=== PATIENT | male | born 1955 | race Caucasian/White ===

== ENCOUNTER 2016-06-12 16:14 | Emergency (ER) | payer OTHER ==
[~2016-06-12] VITALS: Ht 182.9 cm; Wt 131.5 kg
[~2016-06-12 16:14] MED LIST: AMLODIPINE BESY10 M1 PO; ASPIRIN EC81 M1 PO; LANTUS SOL100 UNIT/1 SQ; LISINOPRIL40 M1 PO; METFORMIN HCL1000 M1 PO; OXYCODONE-ACET1 EAC1 PO; PRAVASTATIN SOD40 M2 PO; VITAMIN D250000 UNIT PO
--- NOTE | 2016-06-12 17:20 | ED SKIN/ALLERGY COMPLAINT ---
History of Present Illness General Chief Complaint: Allergy Symptoms Stated Complaint: HIVES ALL OVER Source: patient, family, old records Exam Limitations: no limitations Allergies Coded Allergies: REBECCA Inhibitors (Severe, RASH 06/12/16) Reconcile Medications Amlodipine Besylate 10 MG TABLET 10 MG PO DAILY HIGH BLOOD PRESSURE (Reported ) Aspirin (Ecotrin*) 81 MG TABLET.DR 81 MG PO DAILY HEART HEALTH (Reported) Epinephrine (Epipen 2-Torito) 0.3 MG/0.3 ML AUTO.INJCT 0.3 MG SC AD PRN ALLERGIC REACTION (Reported) Ergocalciferol (Vitamin D2) (Vitamin D2) 50,000 UNIT CAPSULE 50,000 UNITS PO Thursday VITAMIN SUPPORT (Reported) Insulin Glargine,Hum.rec.anlog (Lantus Solostar) 100 UNIT/ML (3 ML) INSULN.PEN 50 UNITS SQ BID DIABETES (Reported) Lisinopril (Unknown Strength) TABLET (Unknown Dose) UNKNOWN (Reported) Metformin HCl 1,000 MG TABLET 1,000 MG PO BID DIABETES (Reported) Oxycodone HCl/Acetaminophen (Oxycodone-Acetaminophen 10-325) 10 MG-325 MG TABLET 1 TAB PO Q6-PRN PRN PAIN SCALE 4-6 (MODERATE) (Reported) Pravastatin Sodium 40 MG TABLET 40 MG PO DAILY HIGH CHOLESTROL (Reported) Triage Note: PT STATES HE HAS HIVES ALL OVER THAT STARTED ABOUT 1 HOUR AGO. PT STATES HE ATE CLAM CHOWDER AND SOME CLAMS. PT STATES THIS IS THE 5TH TIME THIS HAS HAPPEND TO HIM. Triage Nurses Notes Reviewed? yes HPI: Patient is a 60 year old male presents complaining of urticaria diffusely, lip swelling and left sided tongue swelling. Symptoms onset approximately 1 hour prior to arrival. Patient has had 5 similar reactions in the past, has required hospitalization previously. Previously it was thought that the reaction may be due to his lisinopril, patient was taken off his lisinopril one month ago. Patient was eating clam chowder this afternoon but has not had a reaction previously to eating clams. While in triage patient began complaining of lip swelling and left side of his tongue swelling. Patient denies chest pain, dyspnea, nausea, vomiting, lightheadedness. (WOODY VELA,HOLLY) Vital Signs & Intake/Output Vital Signs & Intake/Output Vital Signs Date Time Temp Pulse Resp B/P Pulse O2 O2 Flow FiO2 Ox Delivery Rate 06/13 0005 98.7 90 18 150/84 99 Room Air 06/12 2113 98.9 98 20 148/82 98 Room Air 06/12 1738 98.7 100 20 152/86 96 Room Air ED Intake and Output 06/13 0000 06/12 1200 Intake Total 100 Output Total Balance 100 Intake, IV 100 Patient 290 lb Weight Past History Travel History Traveled to [place] past 21 day No Medical History Any Pertinent Medical History? 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 No (HOLLY GARCIA) Review of Systems Review of Systems Constitutional: Denies: chills, fever. EENTM: Denies: throat swelling. Respiratory: Denies: cough, short of breath. Cardiovascular: Denies: chest pain, syncope. GI: Denies: abdominal pain, nausea, vomiting. Musculoskeletal: Reports: no symptoms. Skin: Reports: see HPI. Neurological/Psychological: Reports: no symptoms. Hematologic/Endocrine: Reports: other (type 2 diabetes). Immunologic/Allergic: Reports: see HPI. (HOLLY GARCIA) Physical Exam Physical Exam General Appearance: alert, awake Head: atraumatic, mild lip angioedema Eyes: Bilateral: normal appearance, PERRL, EOMI. Ears, Nose, Throat: normal pharynx, mild left anterior tongue edema. No uvula swelling, no pharyngeal edema Neck: normal inspection, supple, full range of motion Respiratory: normal breath sounds, chest non-tender, no respiratory distress, lungs clear Cardiovascular: regular rate/rhythm Gastrointestinal: soft, non-tender Back: normal inspection, normal range of motion Extremities: normal inspection, normal capillary refill, normal range of motion, no edema Skin: diffuse urticarial rash (HOLLY GARCIA) Progress Differential Diagnosis: allergic reaction, anaphylaxis, angioedema, hyperglycemia, diabetic emergency Hand-Off Endorsed To: GANGA ROSEN MD Endorsed Time: 2038 Pending: other (improvement of blood sugar) (HOLLY GARCIA) Plan of Care: Orders Procedure Date/time Status SERUM OSMOLALITY 06/12 180 Complete COMPREHENSIVE METABOLIC PANEL 06/12 180 Complete CBC WITHOUT DIFFERENTIAL 06/12 180 Complete ACETONE 06/12 180 Complete FingerStick- Glucose 06/12 1729 Active Laboratory Tests 06/12/16 1830: Anion Gap 16, Estimated GFR > 60, BUN/Creatinine Ratio 18.9, Glucose 485 H, Serum Osmolality 309 H, Calcium 9.1, Total Bilirubin 1.1, AST 171 H, ALT 127 H, Alkaline Phosphatase 127 H, Total Protein 6.5, Albumin 3.6, Globulin 2.9, Albumin/Globulin Ratio 1.2, CBC w Diff NO MAN DIFF REQ, RBC 5.08, MCV 78.6 L, MCH 26.4 L, RDW 13.4, MPV 9.0, Gran % 70.2, Lymphocytes % 19.7 L, Monocytes % 7.7, Eosinophils % 1.8, Basophils % 0.6, Absolute Granulocytes 3.7, Absolute Lymphocytes 1.0 L, Absolute Monocytes 0.4, Absolute Eosinophils 0.1, Absolute Basophils 0, PUBS MCHC 33.6, Acetone Level NEGATIVE 1728: No change increasing tongue edema. No dyspnea, chest pain, vomiting, lightheadedness. 1734: Discussed with and seen by Dr. Gonzalez, patient reports tongue swelling sensation improving. 1829: Patient reports tongue swelling and hives have resolved. Discussed elevated blood sugar with patient. Patient receiving IV fluids. 2034: No signs of anaphylaxis. Signed out to Dr. Rosen, pending improvement of blood sugar (HOLLY GARCIA) Comments: Feels better, no further itching. FBS still moderately elevated. Patient does not routinely check BS without polyuria, polydipsia, polyphagia. Reports losing 5 pounds recently and has been eating well. Declines further IVF and insulin. (GANGA ROSEN MD) Departure Departure Condition: Stable Referrals: UNKNOWN Departure Forms: Customer Survey General Discharge Information (HOLLY GARCIA) PA/WOOD BARREL RECONDITIONER Co-Sign Statement Statement: ED Attending supervision documentation- [X] I saw and evaluated the patient. I have also reviewed all the pertinent lab results and diagnostic results. I agree with the findings and the plan of care as documented in the PA's/WOOD BARREL RECONDITIONER's documentation. [] I have reviewed the ED Record and agree with the PA's/WOOD BARREL RECONDITIONER's documentation. [] Additions or exceptions (if any) to the PAs/WOOD BARREL RECONDITIONER's note and plan are summarized below: [] (BRONSON JUARES,RANDOLPH Estrella) Departure Time of Disposition: 2356 Disposition: HOME OR SELF CARE Clinical Impression Primary Impression: Allergic reaction to food Qualifiers: Encounter type: initial encounter Qualified Code: T78.1XXA - Other adverse food reactions, not elsewhere classified, initial encounter Secondary Impressions: Hyperglycemia without ketosis Additional Instructions: Take benadryl 1-2 tabs every 6 hours as needed for itchy rash. Avoid clam chowder. PA/WOOD BARREL RECONDITIONER Co-Sign Statement Statement: ED Attending supervision documentation- x I saw and evaluated the patient. I have also reviewed all the pertinent lab results and diagnostic results. I agree with the findings and the plan of care as documented in the PA's/WOOD BARREL RECONDITIONER's documentation. [] I have reviewed the ED Record and agree with the PA's/WOOD BARREL RECONDITIONER's documentation. [] Additions or exceptions (if any) to the PAs/WOOD BARREL RECONDITIONER's note and plan are summarized below: [] (SILAS JUARES,GANGA)
[2016-06-12 18:39] LABS: ABSOLUTE BASOPHIL COUNT 0 /CUMM (0.0-0.2); ABSOLUTE EOSINOPHIL COUNT 0.1 /CUMM (0.0-0.7); ABSOLUTE GRANULOCYTE CT 3.7 /CUMM (1.4-6.5); ABSOLUTE MONOCYTE COUNT 0.4 /CUMM (0.10-0.60); BASOPHIL % 0.6 % (0.0-2.0); EOSINOPHIL % 1.8 % (0-5); GRANULOCYTE % 70.2 % (42.2-75.2); HEMATOCRIT 39.9 % (42-52); MEAN CORPUSCULAR HGB 26.4 PG (27.0-31.0); MEAN CORPUSCULAR HGB CONC 33.6 G/DL (33.0-37.0); MEAN CORPUSCULAR VOLUME 78.6 FL (80.0-94.0); PLATELET COUNT 187 /CUMM (130-400); RBC DISTRIBUTION WIDTH 13.4 % (11.5-14.5); RED BLOOD CELL CT 5.08 /CUMM (4.70-6.10); WHITE BLOOD CELL COUNT 5.3 /CUMM (4.8-10.8)
[2016-06-12] MEDS ORDERED: EPIPEN 2-P0.3 MG/0.3 SC (18:56)
[2016-06-12] MEDS ORDERED: LISINOPRIL40 M1 (18:56)
[2016-06-13 00:05] VITALS: BP 150/84
== END 2016-06-13 00:06 ==
LOC: ERH 16:14
PROVIDERS: Physician Assistant
DX: T78.1XXA Other adverse food reactions, not elsewhere classified, initial encounter (principal); L50.9 Urticaria, unspecified
CPT/HCPCS: 96361; 96365; 96372; 96375; J1200; J1815; J2930

== ENCOUNTER 2016-07-08 17:48 | Emergency (ER) | payer OTHER ==
[~2016-07-08 17:48] MED LIST changes: +EPIPEN 2-P0.3 MG/0.3 SC; +LISINOPRIL40 M1
--- NOTE | 2016-07-08 18:04 | ED SKIN/ALLERGY COMPLAINT ---
History of Present Illness General Chief Complaint: Allergy Symptoms Stated Complaint: ALLERGIC REACTION Source: patient Exam Limitations: no limitations Vital Signs & Intake/Output Vital Signs & Intake/Output Vital Signs Date Time Temp Pulse Resp B/P Pulse O2 O2 Flow FiO2 Ox Delivery Rate 07/08 2354 97.1 108 18 141/79 97 Room Air 07/08 2230 98.1 90 18 143/82 98 Room Air 07/08 2057 97.0 102 16 135/81 96 Room Air 07/08 1815 Room Air 07/08 1804 100 20 109/77 97 Room Air 07/08 1754 97.0 120 18 100/69 95 Room Air Allergies Coded Allergies: REBECCA Inhibitors (Severe, RASH 06/12/16) Reconcile Medications Amlodipine Besylate 10 MG TABLET 10 MG PO DAILY HIGH BLOOD PRESSURE (Reported ) Aspirin (Ecotrin*) 81 MG TABLET.DR 81 MG PO DAILY HEART HEALTH (Reported) Epinephrine (Epipen 2-Torito) 0.3 MG/0.3 ML AUTO.INJCT 0.3 MG SC AD PRN ALLERGIC REACTION (Reported) Ergocalciferol (Vitamin D2) (Vitamin D2) 50,000 UNIT CAPSULE 50,000 UNITS PO Thursday VITAMIN SUPPORT (Reported) Insulin Glargine,Hum.rec.anlog (Basaglar Kwikpen U-100) 100 UNIT/ML (3 ML) INSULN.PEN 50 UNITS SC BID DM (Reported) Metformin HCl 1,000 MG TABLET 1,000 MG PO BID DIABETES (Reported) Oxycodone HCl/Acetaminophen (Oxycodone-Acetaminophen 10-325) 10 MG-325 MG TABLET 1 TAB PO Q6-PRN PRN PAIN SCALE 4-6 (MODERATE) (Reported) Pravastatin Sodium 40 MG TABLET 40 MG PO DAILY HIGH CHOLESTROL (Reported) Prednisone (Deltasone) 20 MG TABLET 1 TAB PO BID RASH Triage Nurses Notes Reviewed? yes Onset: Abrupt Duration: hour(s): (1), constant, continues in ED Timing: single episode today HPI: 61-year-old male comes into emergency room for evaluation of allergic reaction after eating seafood tonight. Patient reports that this is happened to him on 3 other separate occasions and he carries an EpiPen normally but did not use it tonight and does not have it with him. Patient has a history of tongue swelling in the past. Patient reports diffuse rash as well as some tongue swelling and lip swelling. Denies any syncope. Denies any pain currently. Denies any other associated symptoms. (JEB LAKE) Past History Travel History Traveled to [place] past 21 day No Medical History Any Pertinent Medical History? 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 No (JEB LAKE) Review of Systems Review of Systems Constitutional: Reports: no symptoms. EENTM: Reports: see HPI. Respiratory: Reports: no symptoms. Cardiovascular: Reports: no symptoms. GI: Reports: no symptoms. Genitourinary: Reports: no symptoms. Musculoskeletal: Reports: no symptoms. Skin: Reports: see HPI. Neurological/Psychological: Reports: no symptoms. Hematologic/Endocrine: Reports: no symptoms. Immunologic/Allergic: Reports: no symptoms. All Other Systems: Reviewed and Negative (JEB LAKE) Physical Exam Physical Exam General Appearance: well developed/nourished, mild distress Head: atraumatic Eyes: Bilateral: normal appearance. Ears, Nose, Throat: normal ENT inspection, hearing grossly normal, angioedema, lip swelling, no stridor, Neck: normal inspection Respiratory: no respiratory distress Cardiovascular: regular rate/rhythm Back: normal inspection Extremities: normal inspection, normal range of motion, no edema Neurologic/Psych: awake, alert, oriented x 3, normal mood/affect Skin: rash Skin Problem Location: generalized Skin Problem Character: urticarial Lymphatic: no anterior cervical marylou (JEB LAKE) Progress Differential Diagnosis: abscess/cellulitis, allergic reaction, anaphylaxis, angioedema, asthma, contact dermatitis, drug reaction Plan of Care: Orders Procedure Date/time Status Telemetry/Cardiology Nurse Practitioner 07/08 1801 Active EKG 07/08 1801 Active Current Medications Sig/Lauri Start time Last Medication Dose Stop Time Status Admin Diphenhydramine HCl 50 MG ONCE ONE 07/08 1814 CAN (Benadryl) 07/08 1815 Laboratory Tests 07/08/16 1803: Sodium Cancelled, Potassium Cancelled, Chloride Cancelled, Carbon Dioxide Cancelled, Anion Gap Cancelled, BUN Cancelled, Creatinine Cancelled, BUN/ Creatinine Ratio Cancelled, Glucose Cancelled, Calcium Cancelled, CBC w Diff Cancelled, WBC Cancelled, RBC Cancelled, Hgb Cancelled, Hct Cancelled, MCV Cancelled, MCH Cancelled, RDW Cancelled, Plt Count Cancelled, MPV Cancelled, PUBS MCHC Cancelled Initial ED EKG: normal intervals, normal p-waves, normal QRS complex, normal sinus rhythm, rate (98) Comments: 07/08/2016 11:50:08 PM Patient has been observed here in the emergency room for 6 hours. Patient's symptoms have completely resolved. No evidence of angioedema upon reevaluation. No evidence of any type of urinary care area. Symptoms resolved after about 15 -20 minutes of being medicated here in the emergency room. Patient has been observed and continues to do well. At this time patient will be discharged home. Patient has EpiPen at home. Patient placed on prednisone. Case discussed with Dr. Quiroga. Patient understands and agrees with plan of care. (JEB LAKE) Departure Departure Disposition: HOME OR SELF CARE Condition: Stable Clinical Impression Primary Impression: Anaphylaxis Referrals: MANUEL JUARES,BANG Baxter (PCP/Family) Additional Instructions: Take prednisone as prescribed. If you have another recurrent reaction of tongue swelling lip swelling and hives seizure EpiPen at home. Follow close up with your primary care doctor. Return if any other concerns. Please go over all results of today's visit with your primary care doctor. Contact your primary care doctor to let them know you were here in the emergency room. There may be nonspecific findings which may not be related to your visit today here in the emergency room but may require further evaluation and chronic monitoring by your primary care doctor. If you had a laceration today the chance of foreign body always remains. You should follow-up with your primary care doctor for recheck in 3-5 days for a wound check. If you had an x-ray done there is a chance that a fracture could have been missed on initial read and you should follow-up with your primary care doctor for repeat x-rays if symptoms persist. If your blood pressure was elevated here in the emergency room please have rechecked by her primary care doctor within the next 48 hours by your primary care doctor. If you were prescribed a narcotic here in the emergency room or any type of controlled substances you're not allowed to drive while taking this medication or operate any type of heavy machinery. Narcotics can make you feel lightheaded dizziness nausea and can cause constipation. You may need to mushroom picker a stool softener. Thank you for choosing [facility] emergency room. Please return to the emergency room immediately if you have any other concerns worsening of symptoms. Departure Forms: Customer Survey General Discharge Information Prescriptions: Current Visit Scripts Prednisone (Deltasone) 1 TAB PO BID #10 MG (JEB LAKE) PA/DEPUTY SHERIFF GENERALIST Co-Sign Statement Statement: ED Attending supervision documentation- [X] I saw and evaluated the patient. I have also reviewed all the pertinent lab results and diagnostic results. I agree with the findings and the plan of care as documented in the PA's/DEPUTY SHERIFF GENERALIST's documentation. [X] I have reviewed the ED Record and agree with the PA's/DEPUTY SHERIFF GENERALIST's documentation. [] Additions or exceptions (if any) to the PAs/DEPUTY SHERIFF GENERALIST's note and plan are summarized below: [] (FLORES JUARES,CHEYENNE Ambriz) Critical Care Note Critical Care Note Critical Care Time: 30-74 min (40 minutes) (JEB LAKE)
[2016-07-08] MEDS ORDERED: BASAGLAR K100 UNIT/1 SC (18:18)
[2016-07-08] MEDS ORDERED: DELTASONE20 MG PO (23:38)
[2016-07-08 23:54] VITALS: BP 141/79
== END 2016-07-09 ==
LOC: ERH 17:48
DX: T78.03XA Anaphylactic reaction due to other fish, initial encounter (principal)
CPT/HCPCS: 93005; 93010; 96372; 96374; 96375; J0171; J1200; J2930

== ENCOUNTER 2016-08-16 07:36 | Emergency (ER) | payer OTHER ==
[~2016-08-16] VITALS: Ht 182.9 cm; Wt 131.5 kg
[~2016-08-16 07:36] MED LIST changes: +BASAGLAR K100 UNIT/1 SC; +DELTASONE20 MG PO
--- NOTE | 2016-08-16 08:08 | ED SKIN/ALLERGY COMPLAINT ---
History of Present Illness General Chief Complaint: General Adult Stated Complaint: HIVES, SWOLLEN UPPER LIP, USED EPI PEN X 1 HR AGO Source: patient Exam Limitations: no limitations Vital Signs & Intake/Output Vital Signs & Intake/Output Vital Signs Date Time Temp Pulse Resp B/P Pulse O2 O2 Flow FiO2 Ox Delivery Rate 08/16 0742 96.6 105 16 146/83 97 Room Air Allergies Coded Allergies: REBECCA Inhibitors (Severe, RASH 06/12/16) Reconcile Medications Amlodipine Besylate 10 MG TABLET 10 MG PO DAILY HIGH BLOOD PRESSURE (Reported ) Aspirin (Ecotrin*) 81 MG TABLET.DR 81 MG PO DAILY HEART HEALTH (Reported) Epinephrine (Epipen 2-Torito) 0.3 MG/0.3 ML AUTO.INJCT 0.3 MG SC AD PRN ALLERGIC REACTION (Reported) Ergocalciferol (Vitamin D2) (Vitamin D2) 50,000 UNIT CAPSULE 50,000 UNITS PO Thursday VITAMIN SUPPORT (Reported) Insulin Glargine,Hum.rec.anlog (Basaglar Kwikpen U-100) 100 UNIT/ML (3 ML) INSULN.PEN 50 UNITS SC BID DM (Reported) Metformin HCl 1,000 MG TABLET 1,000 MG PO BID DIABETES (Reported) Oxycodone HCl/Acetaminophen (Oxycodone-Acetaminophen 10-325) 10 MG-325 MG TABLET 1 TAB PO Q6-PRN PRN PAIN SCALE 4-6 (MODERATE) (Reported) Pravastatin Sodium 40 MG TABLET 40 MG PO DAILY HIGH CHOLESTROL (Reported) Triage Note: PT STATES HE HAD AN ALLERGIC REACTION TO SOMETHING THIS AM AND STATES HE TOOK HIS EPI PEN ABOUT 1 HOUR AGO. Triage Nurses Notes Reviewed? yes HPI: Patient presents for evaluation of a sudden onset of an allergic reaction occurred about 2 hours ago. Patient states he was at work and suddenly began having hives of his extremities with upper lip swelling. Is not sure if his tongue became somewhat swollen and he may have had even some right hand swelling. He took his EpiPen and is beginning to feel better. His allergic reaction is characterized as moderate to severe constant since onset, continues here in the emergency department but again is improving. He has had multiple prior episodes of this nature. He was taking lisinopril a few months ago and this has been discontinued. He potentially has a fish allergy and he has had no fish for the past few months either. He did not have any breakfast this morning and his last food was about 3 AM and consisted of Charlene soda bread. He denies chest pain dyspnea wheezing or abdominal pain. Past History Travel History Traveled to [place] past 21 day No Medical History Any Pertinent Medical History? 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 No Review of Systems Review of Systems Constitutional: Reports: no symptoms. EENTM: Reports: no symptoms. Respiratory: Reports: no symptoms. Cardiovascular: Reports: no symptoms. GI: Reports: no symptoms. Genitourinary: Reports: no symptoms. Musculoskeletal: Reports: no symptoms. Skin: Reports: no symptoms. Neurological/Psychological: Reports: no symptoms. Hematologic/Endocrine: Reports: no symptoms. Immunologic/Allergic: Reports: see HPI. All Other Systems: Reviewed and Negative Physical Exam Physical Exam General Appearance: SEE BELOW Comments: Gen.: Well-nourished, well-developed, no acute respiratory distress. Head: Normocephalic, atraumatic. Eyes: Normal inspection bilaterally, no conjunctival injection Ears: Normal inspection bilaterally Nose: Normal inspection Throat/mouth : Moist mucosa, mild uvula edema, no apparent lip or tongue swelling Neck: Supple, full range of motion, no goiter, no stridor Heart: Regular rate and rhythm, no murmurs rubs or gallops Lungs: Clear to auscultation bilaterally with normal air entry Chest: Nontender Back: Normal range of motion Abdomen: Soft, nontender, nondistended, normal bowel sounds Extremities: Normal range of motion grossly, equal radial pulses, no cyanosis clubbing or edema, patchy urticaria present on left forearm Neurologic: Cranial nerves grossly intact, speech is clear Skin: warm and dry Psychiatric: Calm, cooperative, no apparent delusions or hallucinations Progress Differential Diagnosis: allergic reaction, anaphylaxis, urticaria Plan of Care: SEE D/C INSTRUCTIONS Comments: 08/16/2016 10:05:41 AM patient is feeling better and his rash has resolved. Departure Departure Disposition: HOME OR SELF CARE Condition: Stable Clinical Impression Primary Impression: Allergic urticaria Referrals: MANUEL JUARES,BANG Baxter (PCP/Family) Additional Instructions: Benadryl 50 mg every 6 hours for the next 2 days. Zantac as prescribed for 2 days. Follow-up with your primary care physician on Thursday for reevaluation. Return if any concerns or sudden worsening. Please keep a diary of any exposures that might shed light on to what you are having an allergy. Thank you for choosing the [facility] Emergency Department for your care. It was a pleasure to serve you today. Oscar Gonzalez M.D. [facility] Departure Forms: Customer Survey General Discharge Information
[2016-08-16 10:26] VITALS: BP 128/67
== END 2016-08-16 10:29 ==
LOC: ERH 07:36
DX: L50.0 Allergic urticaria (principal)

== ENCOUNTER 2016-10-10 09:35 | Emergency (ER) | payer OTHER ==
[~2016-10-10] VITALS: Ht 182.9 cm; Wt 131.5 kg
--- NOTE | 2016-10-10 09:53 | ED SKIN/ALLERGY COMPLAINT ---
History of Present Illness General Chief Complaint: Allergy Symptoms Stated Complaint: ALLERGIC RX Source: patient, old records Exam Limitations: no limitations Vital Signs & Intake/Output Vital Signs & Intake/Output Vital Signs Date Time Temp Pulse Resp B/P B/P Pulse O2 O2 Flow FiO2 Mean Ox Delivery Rate 10/10 1133 98.2 102 15 120/78 94 Room Air Room Air 10/10 0958 Room Air Room Air 10/10 0939 96.7 123 20 151/94 98 Room Air Allergies Coded Allergies: REBECCA Inhibitors (Severe, RASH 06/12/16) Reconcile Medications Amlodipine Besylate 10 MG TABLET 10 MG PO DAILY HIGH BLOOD PRESSURE (Reported ) Aspirin (Ecotrin*) 81 MG TABLET.DR 81 MG PO DAILY HEART HEALTH (Reported) Epinephrine (Epipen 2-Torito) 0.3 MG/0.3 ML AUTO.INJCT 0.3 MG SC AD PRN ALLERGIC REACTION (Reported) Ergocalciferol (Vitamin D2) (Vitamin D2) 50,000 UNIT CAPSULE 50,000 UNITS PO Thursday VITAMIN SUPPORT (Reported) Insulin Glargine,Hum.rec.anlog (Basaglar Kwikpen U-100) 100 UNIT/ML (3 ML) INSULN.PEN 50 UNITS SC BID DM (Reported) Metformin HCl 1,000 MG TABLET 1,000 MG PO BID DIABETES (Reported) Oxycodone HCl/Acetaminophen (Oxycodone-Acetaminophen 10-325) 10 MG-325 MG TABLET 1 TAB PO Q6-PRN PRN PAIN SCALE 4-6 (MODERATE) (Reported) Pravastatin Sodium 40 MG TABLET 40 MG PO DAILY HIGH CHOLESTROL (Reported) Triage Note: PT TO ED FOR ALLERGIC REACTION, STARTED 45 MINS AGO. UNKNOWN FROM WHAT. HAS HAPPENED TO PT IN THE PAST. PT GAVE HIMSELF AN EPI AT 0920. PT STATES HE THROAT FEELS NUMB. NO SOB OR DIFF BREATHING NOTED, RA SATS 98%. PT HAS NO PAIN. LARGE RAISED RASH TO ABD AND THIGHS. Triage Nurses Notes Reviewed? yes HPI: Patient was driving this morning when he developed an indigestion feeling substernally. The feeling lasted approximately 15-20 minutes before it resolved. A little while later patient then broke out in diffuse hives. Patient has had similar symptoms multiple times in the past. Patient has been to multiple EGDs for this. Patient is also seen an arrt technologist. Patient has been given an EpiPen. Patient used the EpiPen this morning because he states that usually after the rash his throat because swallow. It is unknown what the patient is allergic to. Patient states that the past few times prior to breaking out in a rash he has had this indigestion feeling. There are no aggravating or mitigating factors to the indigestion. The indigestion was substernal. There is no radiation. At its worst she rated as a 4 out of 10. Patient denies any difficulty breathing or swallowing. Past History Travel History Traveled to [place] past 21 day No Medical History Any Pertinent Medical History? 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 No Review of Systems Review of Systems Constitutional: Reports: no symptoms. EENTM: Reports: no symptoms. Respiratory: Reports: no symptoms. Cardiovascular: Reports: see HPI, chest pain. GI: Reports: no symptoms. Genitourinary: Reports: no symptoms. Musculoskeletal: Reports: no symptoms. Skin: Reports: see HPI, rash. Neurological/Psychological: Reports: no symptoms. Hematologic/Endocrine: Reports: no symptoms. Immunologic/Allergic: Reports: no symptoms. All Other Systems: Reviewed and Negative Physical Exam Physical Exam General Appearance: well developed/nourished, alert, awake, anxious, moderate distress Head: atraumatic, normal appearance Eyes: Bilateral: PERRL, EOMI. Ears, Nose, Throat: normal pharynx, normal ENT inspection, hearing grossly normal Neck: normal inspection, supple, full range of motion Respiratory: normal breath sounds, chest non-tender, no respiratory distress, lungs clear Cardiovascular: regular rate/rhythm, normal peripheral pulses Gastrointestinal: normal bowel sounds, soft, non-tender Back: normal inspection, normal range of motion Extremities: normal inspection, normal capillary refill, normal range of motion, no edema Neurologic/Psych: no motor/sensory deficits, awake, alert, oriented x 3, normal gait, normal mood/affect Skin: rash Skin Problem Location: generalized Skin Problem Character: urticarial Lymphatic: no anterior cervical marylou Progress Differential Diagnosis: allergic reaction, anaphylaxis, drug reaction, urticaria Plan of Care: Orders Procedure Date/time Status Telemetry/Supervisor Cellars 10/11 951 Active TROPONIN LEVEL 10/11 951 Complete COMPREHENSIVE METABOLIC PANEL 10/11 951 Complete CBC WITHOUT DIFFERENTIAL 10/11 951 Complete EKG 10/10 946 Active Laboratory Tests 10/10/16 0955: Anion Gap 14, Estimated GFR > 60, BUN/Creatinine Ratio 15.6, Glucose 390 H, Calcium 9.2, Total Bilirubin 1.6 H, AST 220 H, ALT 123 H, Alkaline Phosphatase 137 H, Troponin I < 0.01, Total Protein 7.0, Albumin 3.8, Globulin 3.2, Albumin/Globulin Ratio 1.2, CBC w Diff NO MAN DIFF REQ, RBC 5.66, MCV 78.8 L, MCH 25.9 L, RDW 13.8, MPV 9.4, Gran % 55.4, Lymphocytes % 35.1, Monocytes % 8.4, Eosinophils % 0.8, Basophils % 0.3, Absolute Granulocytes 5.6, Absolute Lymphocytes 3.6 H, Absolute Monocytes 0.8 H, Absolute Eosinophils 0.1, Absolute Basophils 0, PUBS MCHC 32.8 L Initial ED EKG: NSR, nonspecific ST T wave chg Prior EKG: changed Rhythm Strip: normal sinus rhythm Comments: Rash has resolved. No difficulty breathing or swallowing. Patient is stable for discharge. Departure Departure Disposition: HOME OR SELF CARE Condition: Stable Clinical Impression Primary Impression: Urticaria Referrals: MANUEL JUARES,BANG Baxter (PCP/Family) Additional Instructions: FOLLOW UP WITH YOU DOCTOR RETURN FOR ANY CONCERNS Departure Forms: Customer Survey General Discharge Information Prescriptions: Current Visit Scripts Prednisone 1 TAB PO DAILY #30 TAB TAKE 4 TABS FOR 3 DAYS THEN TAKE 3 TABS FOR 3 DAYS THEN TAKE 2 TABS FOR 3 DAYS THEN TAKE 1 TAB FOR 3 DAYS
[2016-10-10 10:09] LABS: ABSOLUTE BASOPHIL COUNT 0 /CUMM (0.0-0.2); ABSOLUTE EOSINOPHIL COUNT 0.1 /CUMM (0.0-0.7); ABSOLUTE GRANULOCYTE CT 5.6 /CUMM (1.4-6.5); ABSOLUTE LYMPH COUNT 3.6 /CUMM (1.2-3.4); ABSOLUTE MONOCYTE COUNT 0.8 /CUMM (0.10-0.60); BASOPHIL % 0.3 % (0.0-2.0); EOSINOPHIL % 0.8 % (0-5); GRANULOCYTE % 55.4 % (42.2-75.2); HEMATOCRIT 44.6 % (42-52); MEAN CORPUSCULAR HGB 25.9 PG (27.0-31.0); MEAN CORPUSCULAR HGB CONC 32.8 G/DL (33.0-37.0); MEAN CORPUSCULAR VOLUME 78.8 FL (80.0-94.0); MEAN PLATELET VOLUME 9.4 FL (7.4-10.4); PLATELET COUNT 205 /CUMM (130-400); RBC DISTRIBUTION WIDTH 13.8 % (11.5-14.5); RED BLOOD CELL CT 5.66 /CUMM (4.70-6.10); WHITE BLOOD CELL COUNT 10.1 /CUMM (4.8-10.8)
[2016-10-10 12:35] VITALS: BP 140/92
[2016-10-10] MEDS ORDERED: PREDNISONE10 M2 PO (12:38)
[2016-10-10] MEDS ORDERED: EPIPEN 2-P0.3 MG/0.3 SQ (12:40)
== END 2016-10-10 12:50 ==
LOC: ERH 09:35
PROVIDERS: Emergency Medicine
DX: L50.9 Urticaria, unspecified (principal)
CPT/HCPCS: 93005; 93010; 96374; 96375; J1200; J2930

== ENCOUNTER 2017-09-08 13:46 | Emergency (ER) | payer OTHER ==
[~2017-09-08] VITALS: Ht 182.9 cm; Wt 129.3 kg
[~2017-09-08 13:46] MED LIST changes: +EPIPEN 2-P0.3 MG/0.3 SQ; +PREDNISONE10 M2 PO
[2017-09-08 14:08] LABS: ABSOLUTE BASOPHIL COUNT 0 /CUMM (0.0-0.2); ABSOLUTE EOSINOPHIL COUNT 0.2 /CUMM (0.0-0.7); ABSOLUTE GRANULOCYTE CT 6.2 /CUMM (1.4-6.5); ABSOLUTE LYMPH COUNT 1.3 /CUMM (1.2-3.4); ABSOLUTE MONOCYTE COUNT 0.9 /CUMM (0.10-0.60); BASOPHIL % 0.4 % (0.0-2.0); GRANULOCYTE % 71.8 % (42.2-75.2); HEMATOCRIT 46.1 % (42-52); MEAN CORPUSCULAR HGB 26.3 PG (27.0-31.0); MEAN CORPUSCULAR VOLUME 79.6 FL (80.0-94.0); MEAN PLATELET VOLUME 9.2 FL (7.4-10.4); PLATELET COUNT 264 /CUMM (130-400); RBC DISTRIBUTION WIDTH 14.2 % (11.5-14.5); RED BLOOD CELL CT 5.79 /CUMM (4.70-6.10); WHITE BLOOD CELL COUNT 8.6 /CUMM (4.8-10.8)
--- NOTE | 2017-09-08 16:35 | ED GI/GU/ABDOMINAL COMPLAINT ---
History of Present Illness General Chief Complaint: Dizziness Stated Complaint: DIZZY/LOOSE STOOLS ABD PAIN Source: patient Exam Limitations: no limitations Vital Signs & Intake/Output Vital Signs & Intake/Output Vital Signs Date Time Temp Pulse Resp B/P B/P Pulse O2 O2 Flow FiO2 Mean Ox Delivery Rate 09/08 1647 97 Room Air 09/08 1639 97.8 93 20 108/56 98 Room Air 09/08 1357 97.7 108 18 122/67 98 Room Air Allergies Coded Allergies: REBECCA Inhibitors (Severe, RASH 06/12/16) Reconcile Medications Amlodipine Besylate 10 MG TABLET 10 MG PO DAILY HIGH BLOOD PRESSURE (Reported ) Aspirin (Ecotrin*) 81 MG TABLET.DR 81 MG PO DAILY HEART HEALTH (Reported) Dicyclomine HCl 10 MG CAPSULE 1 CAP PO TID PRN ENTERITIS Epinephrine (Epipen 2-Torito) 0.3 MG/0.3 ML AUTO.INJCT 0.3 MG SC AD PRN ALLERGIC REACTION (Reported) Epinephrine (Epipen 2-Tortio) 0.3 MG/0.3 ML AUTO.INJCT 1 PEN SQ ONE ALLERGIC REACTION Ergocalciferol (Vitamin D2) (Vitamin D2) 50,000 UNIT CAPSULE 50,000 UNITS PO Thursday VITAMIN SUPPORT (Reported) Insulin Glargine,Hum.rec.anlog (Basaglar Kwikpen U-100) 100 UNIT/ML (3 ML) INSULN.PEN 50 UNITS SC BID DM (Reported) Metformin HCl 1,000 MG TABLET 1,000 MG PO BID DIABETES (Reported) Oxycodone HCl/Acetaminophen (Oxycodone-Acetaminophen 10-325) 10 MG-325 MG TABLET 1 TAB PO Q6-PRN PRN PAIN SCALE 4-6 (MODERATE) (Reported) Pravastatin Sodium 40 MG TABLET 40 MG PO DAILY HIGH CHOLESTROL (Reported) Prednisone 10 MG TABLET 1 TAB PO DAILY ALLGIC REACTION TAKE 4 TABS FOR 3 DAYS THEN TAKE 3 TABS FOR 3 DAYS THEN TAKE 2 TABS FOR 3 DAYS THEN TAKE 1 TAB FOR 3 DAYS Triage Note: PT STATES GE GAS BEEN HAVING DIARRHEA "ALL WATER" STATES EVERYTHING IS COMING OUT. PT HAS BLACK SPOTS IN FRONT OF HIS EYES SINCE LAST NIGHT. PT C/O SOB, DENIES CHEST PAIN. PT C/O LUQ PAIN THAT HE HAS HAD FOR 6MONTHS. Triage Nurses Notes Reviewed? yes Onset: Abrupt Duration: intermittent Timing: multiple episodes today Quality/Severity: aching, mild Severity Numbers: 2 Radiation: no radiation HPI: Patient is a 62-year-old male with a past medical history of diabetes, hypertension and hyperlipidemia who presents emergency room that yesterday evening he was in his normal state of health however he ate meat loaf for dinner and subsequently during the night hours he began having loose watery diarrhea production in which she has had over 15 episodes of diarrhea today. Patient complains of mild epigastric pain Denies any recent antibiotics denies any significant NSAID use denies any alcohol use. Denies any fever chills shortness of breath nausea vomiting. Patient can tolerate by mouth prior to arrival. Patient's last colonoscopy was approximate 4 years ago noted only polyps. Patient does state that he has had dizziness symptoms since that is worse with positional movements Past History Travel History Traveled to [place] past 21 day No Medical History Any Pertinent Medical History? 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 No Review of Systems Review of Systems Constitutional: Reports: no symptoms. EENTM: Reports: no symptoms. Respiratory: Reports: no symptoms. Cardiovascular: Reports: no symptoms. GI: Reports: see HPI, abdominal pain, vomiting. Genitourinary: Reports: no symptoms. Musculoskeletal: Reports: no symptoms. Skin: Reports: no symptoms. Neurological/Psychological: Reports: no symptoms. Hematologic/Endocrine: Reports: no symptoms. Immunologic/Allergic: Reports: no symptoms. All Other Systems: Reviewed and Negative Physical Exam Physical Exam General Appearance: no apparent distress, alert, comfortable Head: atraumatic Eyes: Bilateral: normal appearance. Ears, Nose, Throat, Mouth: hearing grossly normal Neck: normal inspection Respiratory: normal breath sounds, chest non-tender, no respiratory distress Cardiovascular: tachycardia Gastrointestinal: normal bowel sounds, soft, tenderness Back: normal inspection Extremities: normal range of motion Neurologic/Psych: no motor/sensory deficits, awake, alert Skin: intact, normal color, warm/dry Core Measures ACS in differential dx? No Sepsis Present: No Sepsis Focused Exam Completed? No Progress Differential Diagnosis: AAA, AMI, appendicitis, biliary colic, bowel obstruction , colon cancer, cholecystitis, diverticulitis, epididymitis, esophageal varices, gastritis, hepatitis, hernia, hemorrhoids, ischemic bowel, inflamm bowel dis, Jyoti-Daphne tear, orchitis, pancreatitis, prostatitis, peptic ulcer, PUD/GERD, perforated viscous, pyelonephritis, SBO, testicular torsion, ureterolithiasis, urinary retention, urethritis, UTI/pyelo Plan of Care: Orders Procedure Date/time Status LACTIC ACID 09/08 1657 Complete Add-on Test (ER Only) 09/08 1600 Active Add-on Test (ER Only) 09/08 1445 Active TROPONIN LEVEL 09/08 1359 Complete LIPASE 09/08 1359 Complete LACTIC ACID 09/08 1357 Complete COMPREHENSIVE METABOLIC PANEL 09/08 1357 Complete CBC WITHOUT DIFFERENTIAL 09/08 1357 Complete EKG 09/08 1349 Active Laboratory Tests 09/08/17 1659: Lactic Acid 1.7 09/08/17 1359: Anion Gap 12, Estimated GFR > 60, BUN/Creatinine Ratio 21.7, Glucose 223 H, Lactic Acid 1.4, Calcium 8.8, Total Bilirubin 1.3, AST 15 L, ALT 41, Alkaline Phosphatase 88, Troponin I < 0.01, Total Protein 6.8, Albumin 3.6, Globulin 3.2, Albumin/Globulin Ratio 1.1, Lipase 11 L, CBC w Diff NO MAN DIFF REQ, RBC 5.79, MCV 79.6 L, MCH 26.3 L, MCHC 33.0, RDW 14.2, MPV 9.2, Gran % 71.8, Lymphocytes % 15.4 L, Monocytes % 10.4 H, Eosinophils % 2.0, Basophils % 0.4, Absolute Granulocytes 6.2, Absolute Lymphocytes 1.3, Absolute Monocytes 0.9 H, Absolute Eosinophils 0.2, Absolute Basophils 0 Patient was offered pain medication however declined, patient was normotensive Denies any symptoms of GI bleed Patient has been resting comfortably at bedside in no apparent distress patient was given IV fluids in which blood work and CT was unremarkable, patient will be treated for concerns of enteritis no concerns of C. difficile obstruction or appendicitis at this time patient was able tolerate by mouth upon discharge. Discussed all results with patient and CT scan imaging which she was strongly advised to follow-up with instructions and plan and he will comply Diagnostic Imaging: Viewed by Me: CT Scan. Radiology Impression: no acute abnormality Initial ED EKG: SINUS TACHYCARDIA 104 BPM Comments: PATIENT: MAGED MILLER PRESENT AGE: 62 PATIENT ACCOUNT NO: [id number] : 55 LOCATION: [facility] ORDERING PHYSICIAN: Lisandro VELA SERVICE DATE: 09/08/17 EXAM TYPE: CAT - CT ABD & PELVIS W IV CONTRAST EXAMINATION: CT ABDOMEN AND PELVIS WITH CONTRAST CLINICAL INFORMATION: Left lower quadrant pain. Nausea. Vomiting. Diarrhea. COMPARISON: None TECHNIQUE: Multidetector volumetric imaging was performed of the abdomen and pelvis following IV administration of 95 mL of Optiray 320 intravenous contrast. Sagittal and coronal reformatted images were obtained on the technologist's workstation. DLP: 1408.77 mGy-cm FINDINGS: LUNG BASES: The visualized lung bases are unremarkable. LIVER, GALLBLADDER, AND BILIARY TREE: There is diffuse low attenuation of liver parenchyma. This is likely from fatty change. There is no focal liver lesion. There is no intrahepatic bile duct dilatation. There are several small calcified gallstones at the neck of the gallbladder. There is no edema of the gallbladder. The extrahepatic CBD measures about 6 mm with no calcified stone present in the ducts PANCREAS: The pancreas is atrophic. There is dilatation of the pancreatic duct. Pancreatic head duct measures about 1 cm in diameter. There is no acute change of the pancreas. There is no inflammation of the pancreas. No pancreatic mass or pancreatic calcification. SPLEEN: Unremarkable. ADRENAL GLANDS: Unremarkable. KIDNEYS AND URETERS: There are multiple small hypodensities in the cortex of the kidneys bilaterally. Largest at both lower poles measuring about 1 cm. Statistically likely small renal cysts. There is no renal or ureteral calculi. There is no hydronephrosis. BLADDER: Unremarkable. GASTROINTESTINAL TRACT: The small and large bowel are unremarkable. The appendix is not identified. There is no inflammation of the mesentery. ABDOMINAL WALL: No significant hernia is appreciated. LYMPH NODES: Normal. VASCULAR: There are scattered vascular wall calcifications of aorta and iliac vessels without aneurysm. PELVIC VISCERA: Prostate measures 5.4 cm transverse. OSSEOUS STRUCTURES: There is degenerative spondylosis spine with bridging osteophytes at the lower thoracic involving anterior lateral vertebral endplates. There is mild multilevel facet joint arthrosis at the lower lumbar spine. There is mild degenerative joint disease of hips bilateral with joint space narrowing and spurring of femoral head and acetabula. IMPRESSION: 1. No acute abnormality of the abdomen or pelvis. 2. Diffuse fatty change of liver. 3. Cholelithiasis without acute change of gallbladder wall. There is no bile duct dilatation. DICTATED BY: Jonathan Villalobos MD DATE/TIME DICTATED:09/08/171758 CHIEF INFORMATION OFFICER:GRANT DATE/TIME TRANSCRIBED:09/08/17 Departure Departure Disposition: HOME OR SELF CARE Condition: Stable Clinical Impression Primary Impression: Diarrhea Secondary Impressions: Abdominal pain, Enteritis Referrals: Maryann JUARES,Harman Baxter (PCP/Family) Additional Instructions: As discussed begin the prescription of Bentyl for your symptoms, PRESCRIPTIONS waiting at [facility]. If no better in 2 days follow-up with gastroenterology Dr. Viveros, if symptoms worsen or if YOU develop a new concerning symptom return to emergency room. Begin a 24-hour clear liquid and bland diet Prescriptions waiting at [facility]. Departure Forms: Customer Survey General Discharge Information Prescriptions: Current Visit Scripts Dicyclomine HCl 1 CAP PO TID PRN ENTERITIS #9 CAP
--- NOTE | 2017-09-08 18:11 | CT SCAN REPORT ---
EXAMINATION: CT ABDOMEN AND PELVIS WITH CONTRAST CLINICAL INFORMATION: Left lower quadrant pain. Nausea. Vomiting. Diarrhea. COMPARISON: None TECHNIQUE: Multidetector volumetric imaging was performed of the abdomen and pelvis following IV administration of 95 mL of Optiray 320 intravenous contrast. Sagittal and coronal reformatted images were obtained on the technologist's workstation. DLP: 1408.77 mGy-cm FINDINGS: LUNG BASES: The visualized lung bases are unremarkable. LIVER, GALLBLADDER, AND BILIARY TREE: There is diffuse low attenuation of liver parenchyma. This is likely from fatty change. There is no focal liver lesion. There is no intrahepatic bile duct dilatation. There are several small calcified gallstones at the neck of the gallbladder. There is no edema of the gallbladder. The extrahepatic CBD measures about 6 mm with no calcified stone present in the ducts PANCREAS: The pancreas is atrophic. There is dilatation of the pancreatic duct. Pancreatic head duct measures about 1 cm in diameter. There is no acute change of the pancreas. There is no inflammation of the pancreas. No pancreatic mass or pancreatic calcification. SPLEEN: Unremarkable. ADRENAL GLANDS: Unremarkable. KIDNEYS AND URETERS: There are multiple small hypodensities in the cortex of the kidneys bilaterally. Largest at both lower poles measuring about 1 cm. Statistically likely small renal cysts. There is no renal or ureteral calculi. There is no hydronephrosis. BLADDER: Unremarkable. GASTROINTESTINAL TRACT: The small and large bowel are unremarkable. The appendix is not identified. There is no inflammation of the mesentery. ABDOMINAL WALL: No significant hernia is appreciated. LYMPH NODES: Normal. VASCULAR: There are scattered vascular wall calcifications of aorta and iliac vessels without aneurysm. PELVIC VISCERA: Prostate measures 5.4 cm transverse. OSSEOUS STRUCTURES: There is degenerative spondylosis spine with bridging osteophytes at the lower thoracic involving anterior lateral vertebral endplates. There is mild multilevel facet joint arthrosis at the lower lumbar spine. There is mild degenerative joint disease of hips bilateral with joint space narrowing and spurring of femoral head and acetabula. IMPRESSION: 1. No acute abnormality of the abdomen or pelvis. 2. Diffuse fatty change of liver. 3. Cholelithiasis without acute change of gallbladder wall. There is no bile duct dilatation.
[2017-09-08] MEDS ORDERED: DICYCLOMINE HCL10 M1 PO (18:25)
[2017-09-08 18:37] VITALS: BP 124/59
== END 2017-09-08 18:41 ==
LOC: ERH 13:46
PROVIDERS: Emergency Medicine
DX: K52.9 Noninfective gastroenteritis and colitis, unspecified (principal)
CPT/HCPCS: 74177; 93005; 93010

== ENCOUNTER 2018-01-04 01:22 | Inpatient (IN) | payer OTHER ==
[~2018-01-04] VITALS: Ht 182.9 cm; Wt 126.6 kg
[~2018-01-04 01:22] MED LIST changes: +DICYCLOMINE HCL10 M1 PO
--- NOTE | 2018-01-04 01:49 | ED ANKLE/FOOT INJURY COMPLAINT ---
History of Present Illness General Chief Complaint: General Adult Stated Complaint: LEFT BIG TOE SWELLING Source: patient, old records Exam Limitations: no limitations Vital Signs & Intake/Output Vital Signs & Intake/Output Vital Signs Date Time Temp Pulse Resp B/P B/P Pulse O2 O2 Flow FiO2 Mean Ox Delivery Rate 01/04 0131 99.1 97 18 156/96 98 Room Air Allergies Coded Allergies: REBECCA Inhibitors (Severe, RASH 06/12/16) Reconcile Medications Amlodipine Besylate 10 MG TABLET 10 MG PO DAILY HIGH BLOOD PRESSURE (Reported ) Aspirin (Ecotrin*) 81 MG TABLET.DR 81 MG PO DAILY HEART HEALTH (Reported) Dicyclomine HCl 10 MG CAPSULE 1 CAP PO TID PRN ENTERITIS Epinephrine (Epipen 2-Torito) 0.3 MG/0.3 ML AUTO.INJCT 0.3 MG SC AD PRN ALLERGIC REACTION (Reported) Epinephrine (Epipen 2-Torito) 0.3 MG/0.3 ML AUTO.INJCT 1 PEN SQ ONE ALLERGIC REACTION Ergocalciferol (Vitamin D2) (Vitamin D2) 50,000 UNIT CAPSULE 50,000 UNITS PO Thursday VITAMIN SUPPORT (Reported) Insulin Glargine,Hum.rec.anlog (Basaglar Kwikpen U-100) 100 UNIT/ML (3 ML) INSULN.PEN 50 UNITS SC BID DM (Reported) Metformin HCl 1,000 MG TABLET 1,000 MG PO BID DIABETES (Reported) Oxycodone HCl/Acetaminophen (Oxycodone-Acetaminophen 10-325) 10 MG-325 MG TABLET 1 TAB PO Q6-PRN PRN PAIN SCALE 4-6 (MODERATE) (Reported) Pravastatin Sodium 40 MG TABLET 40 MG PO DAILY HIGH CHOLESTROL (Reported) Prednisone 10 MG TABLET 1 TAB PO DAILY ALLGIC REACTION TAKE 4 TABS FOR 3 DAYS THEN TAKE 3 TABS FOR 3 DAYS THEN TAKE 2 TABS FOR 3 DAYS THEN TAKE 1 TAB FOR 3 DAYS Triage Note: PT TO ED C/O LEFT GREAT TOE REDNESS AND PAIN. HAD PMH OF IDDM "MY SUGARS HAVE NOT BEEN GOOD" "I HAVEN'T HAD A DRINK IN 15 YRS AND I HAD LIKE 20 SHOTS OF ANGEL OVER A FEW DAYS" THIS PAST WEEK. REDNESS GOES ACROSS FOOT TO BASE OF 4TH TOE AND UP FOOT TO TARSAL AREA. FIRST NOTICED PAIN IF LEFT CALF ON THURSDAY. FIRST NOTICED REDNESS ON SAT AM. Triage Nurses Notes Reviewed? yes HPI: Patient works nights and when he got home Thursday morning after working Thursday night he took off his boot and noticed that his left great toe was very swollen and red. Since then he has been having a throbbing pain that is now radiating up into his foot. There is no known injury. Positive chills but no fevers. Patient is a diabetic. The pain is throbbing in nature and he rates it at 8 out of 10. Past History Travel History Traveled to [place] past 21 day No Medical History Any Pertinent Medical History? 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 No Review of Systems Review of Systems Constitutional: Reports: see HPI, chills. EENTM: Reports: no symptoms. Respiratory: Reports: no symptoms. Cardiovascular: Reports: no symptoms. GI: Reports: no symptoms. Genitourinary: Reports: no symptoms. Musculoskeletal: Reports: see HPI, joint pain, joint swelling. Skin: Reports: no symptoms. Neurological/Psychological: Reports: no symptoms. Hematologic/Endocrine: Reports: no symptoms. Immunologic/Allergic: Reports: no symptoms. All Other Systems: Reviewed and Negative Physical Exam Physical Exam General Appearance: well developed/nourished, alert, awake, anxious, mild distress Head: atraumatic, normal appearance Eyes: Bilateral: PERRL, EOMI. Ears, Nose, Throat: normal pharynx, normal ENT inspection, hearing grossly normal Neck: normal inspection, supple Cardiovascular/Respiratory: normal breath sounds, regular rate/rhythm Gastrointestinal: SOFT, NORMAL BS Back: normal inspection Leg/Knee/Thigh Left: normal range of motion, normal inspection Leg/Knee/Thigh Right: normal range of motion, normal inspection Foot Left: ERYTHEMA, SWELLING, WARMTH TO LEFT GREAT TOE MIGRATING INTO THE LEFT SECOND TOE AND ONTO THE DORSAL ASPECT OF HIS FOOT. Neuro/Vascular: normal motor function, normal sensation Psychiatric: awake, alert, oriented x 3 Skin: intact, normal color, warm/dry Progress Differential Diagnosis: cellulitis, fracture Plan of Care: Orders Procedure Date/time Status Heart Healthy Diet 01/04 B Active LACTIC ACID 01/05 448 Active ED Holding Orders 01/04 257 Active Admit to inpatient 01/04 257 Active Vital Signs 01/04 257 Active Code Status 01/04 257 Active BLOOD CULTURE 01/05 148 Active LACTIC ACID 01/05 148 Complete COMPREHENSIVE METABOLIC PANEL 01/05 148 Complete CBC WITHOUT DIFFERENTIAL 01/05 148 Complete EKG 01/05 148 Active Current Medications Sig/Lauri Start time Last Medication Dose Stop Time Status Admin Sodium Chloride 3,810.18 ML ONCE ONE 01/04 200 UNir 01/04 (Normal Saline 0.9%) 01/04 201 0226 Laboratory Tests 01/04/18 0155: Anion Gap 9, Estimated GFR > 60, BUN/Creatinine Ratio 17.8, Glucose 172 H, Lactic Acid 1.4, Calcium 8.8, Total Bilirubin 0.6, AST 16 L, ALT 42, Alkaline Phosphatase 123, Total Protein 6.6, Albumin 3.3 L, Globulin 3.3, Albumin/ Globulin Ratio 1.0 L, CBC w Diff NO MAN DIFF REQ, RBC 4.61 L, MCV 78.9 L, MCH 26.8 L, MCHC 33.9, RDW 13.3, MPV 8.0, Gran % 71.5, Lymphocytes % 17.2 L, Monocytes % 9.5 H, Eosinophils % 1.4, Basophils % 0.4, Absolute Granulocytes 6.6 H, Absolute Lymphocytes 1.6, Absolute Monocytes 0.9 H, Absolute Eosinophils 0.1, Absolute Basophils 0 Microbiology 01/04 203 BLOOD: Blood Culture - RECD 01/04 155 BLOOD: Blood Culture - RECD Diagnostic Imaging: Viewed by Me: Radiology Read. Discussed w/RAD: Radiology Read. Radiology Impression: PATIENT: MAGED MILLER PRESENT AGE: 62 PATIENT ACCOUNT NO: [id number] : 55 LOCATION: [facility] ORDERING PHYSICIAN: Rodolfo Quiroga MD SERVICE DATE: 01/04/18 EXAM TYPE: RAD - XRY-FOOT COMPLETE, LEFT EXAMINATION: XR FOOT, LEFT CLINICAL INFORMATION: Diabetic foot cellulitis COMPARISON: None TECHNIQUE: AP, lateral, and oblique views of the left foot. FINDINGS: There is a fracture at the distal aspect of the second digit proximal phalanx with mild impaction. This is of uncertain chronicity, as there may be minimal periosteal reaction at the site of fracture. Joint spaces are maintained. No additional fractures. Alignment otherwise maintained. Diffuse vascular calcifications. Small heel spurs. No osseous erosions. IMPRESSION: Fracture at the distal aspect of the second digit proximal phalanx which may be subacute as minimal periosteal reaction is noted. No erosive osseous changes to suggest osteomyelitis. DICTATED BY: Bhargav Lima MD DATE/TIME DICTATED:01/04/18223 YEAST SUPERVISOR:GRANT DATE/TIME TRANSCRIBED:01/04/18223 CONFIDENTIAL, DO NOT COPY WITHOUT APPROPRIATE AUTHORIZATION. <Electronically signed in Other Vendor System> SIGNED BY: Bhargav Lima MD 01/04/18228 CXR Impression: PATIENT: MAGED MILLER PRESENT AGE: 62 PATIENT ACCOUNT NO: [id number] : 55 LOCATION: [facility] ORDERING PHYSICIAN: Rodolfo Quiroga MD SERVICE DATE: 01/04/18 EXAM TYPE: RAD - XRY-CHEST XRAY, TWO VIEWS EXAMINATION: XR CHEST CLINICAL INFORMATION: Fever COMPARISON: TECHNIQUE: 2 views of the chest were obtained. FINDINGS: The lungs are well expanded. There is no focal consolidation, edema, or effusion. No pneumothorax. The cardiomediastinal silhouette is within normal limits. No acute osseous abnormality. IMPRESSION: No acute pulmonary finding. DICTATED BY: Bhargav Lima MD DATE/TIME DICTATED:01/04/18225 YEAST SUPERVISOR: GRANT DATE/TIME TRANSCRIBED:01/04/18225 CONFIDENTIAL, DO NOT COPY WITHOUT APPROPRIATE AUTHORIZATION. <Electronically signed in Other Vendor System> SIGNED BY: Bhargav Lima MD 01/04/18228 Initial ED EKG: NSR, nonspecific ST T wave chg Prior EKG: unchanged Departure Departure Disposition: HOME OR SELF CARE Condition: Stable Clinical Impression Primary Impression: Cellulitis Referrals: Karkanitsa MD,Harman V (PCP/Family) Departure Forms: Customer Survey General Discharge Information Admission Note Spoke With: Douglas Hayes MD Documentation of Exam: Documentation of any treatments & extenuating circumstances including Concerns Regarding Discharge (functional status, medication knowledge or non-compliance, living conditions, etc.) that warrant an admission rather than observation: [IV antibiotics, IV hydration, podiatry consultation, patient is at high risk given his neuropathy in that he did not even realize that he had broken his toe.]
[2018-01-04 02:17] LABS: ABSOLUTE BASOPHIL COUNT 0 /CUMM (0.0-0.2); ABSOLUTE EOSINOPHIL COUNT 0.1 /CUMM (0.0-0.7); ABSOLUTE GRANULOCYTE CT 6.6 /CUMM (1.4-6.5); ABSOLUTE LYMPH COUNT 1.6 /CUMM (1.2-3.4); ABSOLUTE MONOCYTE COUNT 0.9 /CUMM (0.10-0.60); BASOPHIL % 0.4 % (0.0-2.0); EOSINOPHIL % 1.4 % (0-5); GRANULOCYTE % 71.5 % (42.2-75.2); HEMATOCRIT 36.4 % (42-52); MEAN CORPUSCULAR HGB 26.8 PG (27.0-31.0); MEAN CORPUSCULAR HGB CONC 33.9 G/DL (33.0-37.0); MEAN CORPUSCULAR VOLUME 78.9 FL (80.0-94.0); PLATELET COUNT 307 /CUMM (130-400); RBC DISTRIBUTION WIDTH 13.3 % (11.5-14.5); RED BLOOD CELL CT 4.61 /CUMM (4.70-6.10); WHITE BLOOD CELL COUNT 9.2 /CUMM (4.8-10.8)
--- NOTE | 2018-01-04 02:29 | RADIOLOGY REPORT ---
EXAMINATION: XR CHEST CLINICAL INFORMATION: Fever COMPARISON: 05/17/2016 TECHNIQUE: 2 views of the chest were obtained. FINDINGS: The lungs are well expanded. There is no focal consolidation, edema, or effusion. No pneumothorax. The cardiomediastinal silhouette is within normal limits. No acute osseous abnormality. IMPRESSION: No acute pulmonary finding.
--- NOTE | 2018-01-04 02:29 | RADIOLOGY REPORT ---
EXAMINATION: XR FOOT, LEFT CLINICAL INFORMATION: Diabetic foot cellulitis COMPARISON: None TECHNIQUE: AP, lateral, and oblique views of the left foot. FINDINGS: There is a fracture at the distal aspect of the second digit proximal phalanx with mild impaction. This is of uncertain chronicity, as there may be minimal periosteal reaction at the site of fracture. Joint spaces are maintained. No additional fractures. Alignment otherwise maintained. Diffuse vascular calcifications. Small heel spurs. No osseous erosions. IMPRESSION: Fracture at the distal aspect of the second digit proximal phalanx which may be subacute as minimal periosteal reaction is noted. No erosive osseous changes to suggest osteomyelitis.
--- NOTE | 2018-01-04 03:05 | History & Physical ---
Johann Richard 01/04/18 0304: General Information and HPI MD Statement: I have seen and personally examined MGAED FOSTER and documented this H&P. The patient is a 62 year old M who presented with a patient stated chief complaint of [L great toe swelling redness warmth]. Source of Information: patient, old records Exam Limitations: no limitations History of Present Illness: Maged Foster is a 62yo M with a PMH of IDDM, HTN, HLD who presents with a 3 day history of L great toe swelling and redness associated with a throbbing pain that is 8/10 in severity. This pain radiates from the toe into the second digit and the dorsum of the foot. Pt does not remember any recent trauma or inciting incident, rather noticed it after he took his boots off Thursday morning after working Thursday overnight. States that prior to this he had some left calf tenderness on Thursday afternoon before work but denies any swelling to the toe. States that he went to work Thursday night and it was difficult to maneuver at work. Wanted to come in over the weekend to the ER but states it was too crowded. Pt works at the [employer] which involves climbing several flights of stairs and ladders. Also states that he has drank roughly 20 shots of alexis this week, although previously sober for 15 years. States he has gone out to eat multiple times this week eating seafood, lobster, steak. Denies fevers/chills/ sick contacts/chest pain/abdominal pain/urinary symptoms/lower extremity edema. PMH: as above Allergies: REBECCA inhibitors SX: Denies FAM hx: noncontributory Soc: Previously sober, has now drank >20 shots of alexis over this week; denies smoking, no illict drug use, works at [employer] ROS: Positive for: swelling, warmth, tenderness to L great toe MTP Negative for: Fevers, chills, night sweats, chest pain, shortness of breath, abdominal pain, n/v/d, urinary symptoms, LE Edema Past History Travel History Traveled to [place] past 21 day No Medical History Neurological: NONE EENT: NONE Cardiovascular: hypertension, hyperlipidemia Respiratory: NONE Gastrointestinal: NONE Hepatic: NONE Renal: NONE Musculoskeletal: JOINT PAIN Psychiatric: NONE Endocrine: diabetes Blood Disorders: NONE Cancer(s): NONE 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 yes Functional Ability ADLs Independent: dressing, eating, toileting, bathing. Ambulation: independent IADLs Independent: shopping, housework, finances, food prep, telephone, transportation , medication admin. Review of Systems Review of Systems Constitutional: Reports: see HPI. Exam & Diagnostic Data Last 24 Hrs of Vital Signs/I&O Vital Signs Date Time Temp Pulse Resp B/P B/P Pulse O2 O2 Flow FiO2 Mean Ox Delivery Rate 01/04 0345 98.1 89 18 154/75 97 Room Air 01/04 0131 99.1 97 18 156/96 98 Room Air Intake & Output 01/04 0800 08 0000 08 1600 Intake Total 2000 Output Total Balance 2000 Intake, IV 2000 Patient 280 lb Weight Weight Reported by Patient Measurement Method Physical Exam General Appearance Alert, Oriented X3, Cooperative, No Acute Distress Skin L great toe redness, warmth, swelling, tenderness extending to dorsum of second toe; small minute dried blood on palmar fold of great toe; tinea pedis present to b/l feet Skin Temp/Moisture Exam: Warm/Dry Cardiovascular Regular Rate, Normal S1, Normal S2 Lungs Clear to Auscultation, Normal Air Movement Abdomen Soft, No Tenderness Neurological Strength at 5/5 X4 Ext, Normal Tone, decreased sensation to L foot 1st, 5th digit Extremities Normal Pulses, mild tenderness L great toe Last 24 Hrs of Labs/Bobby: Laboratory Tests 01/04/18 0448: Lactic Acid Cancelled 01/04/18 0155: Anion Gap 9, Estimated GFR > 60, BUN/Creatinine Ratio 17.8, Glucose 172 H, Lactic Acid 1.4, Uric Acid 5.3, Calcium 8.8, Total Bilirubin 0.6, AST 16 L, ALT 42, Alkaline Phosphatase 123, Total Protein 6.6, Albumin 3.3 L, Globulin 3.3, Albumin/Globulin Ratio 1.0 L, CBC w Diff NO MAN DIFF REQ, RBC 4.61 L, MCV 78.9 L, MCH 26.8 L, MCHC 33.9, RDW 13.3, MPV 8.0, Gran % 71.5, Lymphocytes % 17.2 L, Monocytes % 9.5 H, Eosinophils % 1.4, Basophils % 0.4, Absolute Granulocytes 6.6 H, Absolute Lymphocytes 1.6, Absolute Monocytes 0.9 H, Absolute Eosinophils 0.1, Absolute Basophils 0, ESR Westergren 70 H Microbiology 01/04 0203 BLOOD: Blood Culture - RECD 01/04 015 BLOOD: Blood Culture - RECD Assessment/Plan Assessment: Mr Foster is a 62yo M w PMH IDDM, HTN, HLD, alcoholism with a 3 day history of L great toe swelling, redness, warmth, admitted for gout vs cellulitis vs osteomyelitis. Without leukocytosis or fevers, however has significant neuropathy and is unable to recognize if pain is worsening or not given that he has a broken 2nd digit on foot xray. Problem list/Assessment/Hospital Course: #L foot 2nd digit subacute fracture #R/o diabetic foot ulcer/Gout #Peripheral neuropathy 2/2 diabetes #PMH of IDDM, HTN, HLD #L Great toe warmth/swelling/tenderness -Received one dose of ceftriaxone in ED. No fluctuant areas, doubt MRSA. -Podiatry consult pending in the AM -NPO overnight in case of procedure -Hold off continued Abx as patient does not appear to be in active phase of infection (fever/leukocytosis) -Pending cultures #IDDM -Endo consult in AM -ISS, with accuchek #Alcoholism -Pt relapsed recently, was evasive regarding why. Potential SW/Psych consult per AM team DVT PPx - no lovenox pending podiatry procedure IV Access CC2 diet Full Code Dispo As Ranked By This Provider Problem List: 1. Cellulitis Core Measures/Misc (02/15) Acute Coronary Syndrome ACS Diagnosis: No Congestive Heart Failure Congestive Heart Failure Diagnosis No Cerebrovascular Accident CVA/TIA Diagnosis: No VTE (View Protocol) VTE Risk Factors Age>40 No Mechanical VTE Prophylaxis d/t N/A MechProphylax Ordered No VTE Pharm Prophylaxis d/t Surgical Contraindication (pending podiatry ) Sepsis (View protocol) Sepsis Present: No If YES complete Sepsis Event Note If YES complete Sepsis Event Note Lisa Chambers 01/04/18 0310: Core Measures/Misc (9/17) Sepsis (View protocol) If YES complete Sepsis Event Note If YES complete Sepsis Event Note Resident Review Statement Resident Statement: examined this patient, discussed with nutrition internship, agreed with nutrition internship, discussed with family, reviewed EMR data (avail), discussed with nursing , discussed with case mgmt, reviewed images, amended to note Other Findings: Mr. 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 The pain has been throbbing and radiated up to his foot, without clear hx of trauma. Patient endorsed chills but denied recorded fever. Patient stated that his L foot started bothering him on Thursday night however he did not took off his sock to check until next morning after he finished the shift, and found swelling of the L foot mostly around the great toe, however did not change much till ER visit. He denied using any new work boot however stated that he wore sneakers from time to time at work. He had a binge drinking of alexis about 20 shots in total in the past week since years of abstinence, and has been eating out with seafood/red meat in the past week as well. He denied any gout history. He stated that his diabetes was poorly controlled and last HbA1c was probably >9 to his memory, and he does not check blood sugar at home. He had occassional joint pain especially at his knees so he took percocet at home PRN. Patient claimed that his lisinopril and pravastatin was took off from the list a while ago due to possible adverse reaction. He had visited ER in the past due to angioedema, and had epipen at home for emergency. Rest of history detailed as above. During our clinical interaction, patient denied recent travel/sick contacts, fever/lightheadedness/diaphoresis/night sweat/weight change/cough/SOB/Chest Pain /Palpitation/Abdominal pain/bowel movement or urinary abnormality, or other skin /musculoskeletal/neurological/mood disorders, or dietary/appetite change. -Smoking: denied. Former smoker -Alcohol: Occasional -Rec Drugs: Denied -Outpt physicians: Seeing PCP only, who managed his DM. [facility] but hasn't got an appointment yet. On admission, Vitals: Stable afebrile, HR/RR/O2 sat stable. Physical exam as above. Pertinent findings including a swollen L great toe extended to metatasal region, with 8/10 throbbing intermittent pain, and sensations grossly intact on RLE but sensation loss to light touch on the 1st and 5th digit of LLE. No calf pain on BLEs on palpation. Obese gentleman with unreamarkable lung/cardio exam. -CBC: No leukocytosis, H/H 12.4/36.4, PLT 307 -CMP: Unremarkable except GLu 172. NO lactic acidosis -Imagings: L Foot x-ray Fracture at the distal aspect of the second digit proximal phalanx which may be subacute as minimal periosteal reaction is noted. No erosive osseous changes to suggest osteomyelitis. -EKG: NSR w/o significant ST-T abnormalities, unchanged from previous. -Last Echo: none in our system -Interventions in ER: Ceftrixone x 1, NS bolus x 1 Differential diagnose based on HPI/recent binge alcohol use/eating out w/ seafood/uncontrolled IDDM (claimed HbA1c >9)/did not wear safety boots at work, patient's foot injury could be from trauma w/ puncture site under L great toe or due to poor fitting work boots/diabetic foot ulcer/gout, etc. No signs of toxic/ infection, and no clear evidence of osteomyelitis on imaging. Problem list/Assessment/Hospital Course: #L foot 2nd digit subacute fracture #R/o diabetic foot ulcer/Gout #Peripheral neuropathy 2/2 diabetes #PMH of IDDM, HTN, HLD - Admit to general medicine - Vitals per protocol, monitor I&O per protocol. - Elevation of L foot - Novolin/AccuChek q6hrs, and hold oral hypoglycemics - Continue rest of home meds. - Would hold off ABx for now as patient did not appeart to in active phase of infection (no fever, leukocytosis). - Pending podiatry consult in the AM - Recheck HbA1c. Patient may need Endo consult per primary team - Pending cultures including blood. - Patient may need podiatry procedure and wound culture in OR. Will keep NPO for now and defer to podiatry decision. Patient received 1 dose of ceftriaxone in the ER for empiric coverage, would not continue ABx for now until podiatry evalution. - Pain per pathway DVT prophylaxis ALPS only for now, will start once podiatry decided not to start procedure. Diabetic Diet CC2 IV Access: Peripheral IV Full Code Douglas Hayes MD 01/04/18 0510: General Information and HPI MD Statement: I have seen and personally examined MAGED FOSTER and documented this H&P. The patient is a 62 year old M who presented with a patient stated chief complaint of [left great toe swelling]. Source of Information: patient Allergies/Medications Allergies: Coded Allergies: REBECCA Inhibitors (Severe, RASH 06/12/16) Home Med list Amlodipine Besylate 10 MG TABLET 10 MG PO DAILY HIGH BLOOD PRESSURE (Reported ) Aspirin (Ecotrin*) 81 MG TABLET.DR 81 MG PO DAILY HEART HEALTH (Reported) Epinephrine (Epipen 2-Torito) 0.3 MG/0.3 ML AUTO.INJCT 0.3 MG SC AD PRN ALLERGIC REACTION (Reported) Epinephrine (Epipen 2-Torito) 0.3 MG/0.3 ML AUTO.INJCT 1 PEN SQ ONE ALLERGIC REACTION Insulin Glargine,Hum.rec.anlog (Basaglar Kwikpen U-100) 100 UNIT/ML (3 ML) INSULN.PEN 50 UNITS SC BID DM (Reported) Metformin HCl 1,000 MG TABLET 1,000 MG PO BID DIABETES (Reported) Oxycodone HCl/Acetaminophen (Oxycodone-Acetaminophen 10-325) 10 MG-325 MG TABLET 1 TAB PO Q6-PRN PRN PAIN SCALE 4-6 (MODERATE) (Reported) Past History Medical History Cardiovascular: hypertension, hyperlipidemia Musculoskeletal: JOINT PAIN Psychiatric: alcohol dependence, substance abuse Endocrine: diabetes Past Family/Social History Psychosocial History Smoking Status: Former Smoker ETOH Use: alcoholic (Recent relapse) Illicit Drug Use: denies illicit drug use Employment History Employment Employed Profession/[employer] Review of Systems Review of Systems Constitutional: Reports: see HPI. Exam & Diagnostic Data Last 24 Hrs of Vital Signs/I&O Vital Signs Date Time Temp Pulse Resp B/P B/P Pulse O2 O2 Flow FiO2 Mean Ox Delivery Rate 01/04 0345 98.1 89 18 154/75 97 Room Air 01/04 0131 99.1 97 18 156/96 98 Room Air Intake & Output 01/04 0800 01/04 0000 01/03 1600 Intake Total 2000 Output Total Balance 1999 Intake, IV 2000 Patient 280 lb Weight Weight Reported by Patient Measurement Method Physical Exam General Appearance Alert, Oriented X3, Cooperative, No Acute Distress, Manic Skin L great toe redness, warmth, swelling, tenderness extending to dorsum of second toe; small minute dried blood on palmar fold of great toe; tinea pedis present to b/l feet Skin Temp/Moisture Exam: Warm/Dry Sepsis Skin Exam (color): Normal for Ethnicity HEENT Atraumatic, PERRLA, EOMI Neck Supple, No JVD Lymphatic Axillary nl, Cervical nl Cardiovascular Regular Rate, Normal S1, Normal S2 Lungs Clear to Auscultation, Normal Air Movement Abdomen Normal Bowel Sounds, Soft, No Tenderness Neurological decreased sensation to L foot 1st, 5th digit Extremities Normal Pulses, mild tenderness L great toe Sepsis Peripheral Pulse Location: Dorsalis Pedis Sepsis Peripheral Pulse Exam: Normal Sepsis Cap Refill Exam: <2 Sec Last 24 Hrs of Labs/Bobby: Laboratory Tests 01/04/18 0448: Lactic Acid Cancelled 01/04/18 0155: Anion Gap 9, Estimated GFR > 60, BUN/Creatinine Ratio 17.8, Glucose 172 H, Lactic Acid 1.4, Uric Acid 5.3, Calcium 8.8, Total Bilirubin 0.6, AST 16 L, ALT 42, Alkaline Phosphatase 123, Total Protein 6.6, Albumin 3.3 L, Globulin 3.3, Albumin/Globulin Ratio 1.0 L, CBC w Diff NO MAN DIFF REQ, RBC 4.61 L, MCV 78.9 L, MCH 26.8 L, MCHC 33.9, RDW 13.3, MPV 8.0, Gran % 71.5, Lymphocytes % 17.2 L, Monocytes % 9.5 H, Eosinophils % 1.4, Basophils % 0.4, Absolute Granulocytes 6.6 H, Absolute Lymphocytes 1.6, Absolute Monocytes 0.9 H, Absolute Eosinophils 0.1, Absolute Basophils 0, ESR Westergren 70 H Microbiology 01/04 0203 BLOOD: Blood Culture - RECD 01/04 155 BLOOD: Blood Culture - RECD Core Measures/Misc (02/15) Sepsis (View protocol) If YES complete Sepsis Event Note If YES complete Sepsis Event Note Attending MD Review Statement Attending Statement Attending MD Statement: examined this patient, discuss w/resident/PA/CASE MANAGER, agreed w/resident/PA/CASE MANAGER, reviewed EMR data (avail), amended to note Attending Assessment/Plan: This patient is a 62-year-old white male with a significant past medical history for insulin-dependent diabetes mellitus, hypertension, hyperlipidemia, alcoholism presented to ER with a 3 day history of L great toe swelling, redness and throbbing pain. The pain radiates from the toe into the second digit and the dorsum of the foot. Pt does not remember any recent trauma or inciting incident, rather noticed it after he took his boots off Thursday morning after working Thursday overnight and noted the redness. Upon evaluation in the emergency department the patient was found to be afebrile with a slightly elevated blood pressure (150s over 90s), normal white blood cell count, elevated ESR 70, lactic acid 1.4, CXR- NAD, L FootXR - Fracture at the distal aspect of the second digit proximal phalanx which may be subacute as minimal periosteal reaction is noted. No erosive osseous changes to suggest osteomyelitis, EKG - NSR w/o significant ST-T abnormalities. The patient will be admitted to [facility] for L foot 2nd digit subacute fracture, diabetic foot ulcer, possible Gout or early osteomyelitis. Hold off Abx for now as patient did not appear to in active phase of infection ( no fever, leukocytosis). Podiatry consult. H/O alcoholism with relapse and ? Manic consider Psychiatry consult. Full code.
[2018-01-04 05:00] VITALS: BP 148/84
[2018-01-04 08:18] LABS: PT 12.4 SEC (9.4-12.5)
--- NOTE | 2018-01-04 08:39 | PN- Housestaff ---
Narendra Macedo 01/04/18 0834: Subjective Follow-up For: Left foot greater toe swelling, left foot second digit fracture, peripheral neuropathy? Subjective: Patient was seen and examined at bed. He is complaining of pain in left big toe and left calf muscles. Patient correlating that it is all start after eating lobster and drinking alcohol as he had his last drink in 2001. Apparently he is in no distress, no overnight event. Patient denies fever, chills, chest pain, palpitation, abdominal pain, loose motion, constipation, burning micturition. Review of Systems Constitutional: Reports: see HPI. Objective Last 24 Hrs of Vital Signs/I&O Vital Signs Date Time Temp Pulse Resp B/P B/P Pulse O2 O2 Flow FiO2 Mean Ox Delivery Rate 01/04 900 Room Air 01/04 0828 86 148/84 01/04 0500 98.5 86 20 148/84 94 01/04 0345 98.1 89 18 154/75 97 Room Air 01/04 0131 99.1 97 18 156/96 98 Room Air Intake & Output 01/04 1600 01/04 0800 01/04 0000 Intake Total 855 2100 Output Total Balance 855 2100 Intake, IV 655 2100 Intake, Oral 200 Number 1 Bowel Movements Patient 280 lb Weight Weight Bed scale Measurement Method Physical Exam General Appearance: Oriented X3, Cooperative, No Acute Distress Assessment/Plan Assessment: 60-year-old male with past medical history diabetes, hyperlipidemia, hypertension, binge drink of alcohol last week, lobster eating presented to emergency department with a complaint of left great toe swelling redness, warmth on examination there was some white pus. Problems list; -Osteomyelitis of the left leg -Subacute fracture of left foot second digit -Peripheral neuropathy secondary to diabetes mellitus -Gout/Pogagra. -Cellulitis -Peripheral vascular disease -Acute limb ischemia Plan: There were diminished pulse in the left foot compared to right foot. We were suspecting peripheral vascular disease. Rule out DVT and peripheral vascular disease the following is radiological study report Both venous and arterial Doppler done to rule out deep venous thrombosis and peripheral vascular disease. There is no DVT.The duplex Doppler ultrasound of the left leg is consistent with tibial and pedal vessel disease of the left leg based on the diminished velocities and monophasic waveforms. No focal stenotic lesion was identified in the femoral or popliteal arteries. Greater sensitivity and specificity can be obtained with pre-and post exercise PVRs with RICARDA calculations. Also consider dedicated CTA for further anatomical detail. -Vascular consultation done. Vascular consult to call me and he added that he will see the patient tomorrow and just in case of emergency after arterial Doppler get back to him. -Serum uric acid level is normal but he had a binge drink of alcohol and eaten too much lobster maybe it can lead to gout -Podiatry consultation done. They advise MRI to rule out abscess or osteomyelitis' -As culture is pending -Follow-up labs -DVT prophylaxis -Uncontrolled diabetes, endocrinology consult placed -Insulin sliding scale and monitoring his blood sugar; Problem List: 1. Cellulitis 2. Acute gout 3. Osteomyelitis Pain Ratin Pain Location: Left big toe and second toe Pain Goal: Remain pain free Pain Plan: Pain med Tomorrow's Labs & Rationales: n/a Heriberto De Paz 01/04/18 1043: Attending MD Review Statement Attending Statement Attending MD Statement: examined this patient, discuss w/resident/PA/ASSISTANT FIELD HOCKEY COACH, agreed w/resident/PA/ASSISTANT FIELD HOCKEY COACH, discussed with family, reviewed EMR data (avail), discussed with nursing, discussed with case mgmt, reviewed images, amended to note Attending Assessment/Plan: 62 o/m with pmh of diabetes mellitus on insulin at home comes with sudden onset of swelling of left great toe with reddish coloration and pain at his toe. Patient admitted here for pain control with cellulitis/gout rule out Osteomyelitis and less likely gangrene. Obtain USG arterial duplex, USG lower extremity DVT, Empiric unasyn for cellulitis, follow up blood cultures. NSAIDs/ colchicine if no improvement. Podiatry consult. Consider vascular surgery consult if no improvement or arterial USG studies are abnormal. RISS and titrate insulin as needed. Avoid alcohol which acts as trigger for acute gouty attacks. GI/dvt prophylaxis full code.
--- NOTE | 2018-01-04 12:56 | ULTRASOUND REPORT ---
EXAMINATION: US TRIPLEX LOWER EXTREMITY, LEFT LEG CLINICAL INFORMATION: 62-year-old diabetic patient presenting with erythema, swelling, and tenderness of the left leg. Pain in the left great toe and foot for the past 3 days. COMPARISON: None TECHNIQUE: Color-flow triplex imaging with spectral analysis and compression Doppler were performed on the lower extremity. FINDINGS: Respiratory variation, normal compression and augmented flow are noted throughout the lower extremity. The visualized common femoral vein, superficial femoral vein, profunda femoral vein, popliteal vein and midcalf peroneal and posterior tibial venous segments show no evidence of deep venous thrombosis. There is no Nunn's cyst. IMPRESSION: No evidence of deep venous thrombosis involving the left lower extremity.
--- NOTE | 2018-01-04 13:04 | ULTRASOUND REPORT ---
EXAMINATION: US DUPLEX LOWER EXTREMITY ARTERY/GRAFT LIMITED, LEFT LEG CLINICAL INFORMATION: 62-year-old diabetic patient presenting with erythema, swelling, and pain of the left leg. Diminished pedal pulses. COMPARISON: None TECHNIQUE: Real-time ultrasound and Doppler techniques (integrating B-mode 2-D vascular images, Doppler spectral analysis and color flow Doppler imaging) were utilized to interrogate the lower extremities. FINDINGS: Left lower extremity: Common femoral artery: 94 cm/sec; triphasic waveform Superficial femoral artery proximal: 126 cm/sec; triphasic waveform Superficial femoral artery mid portion: 122 cm/sec; triphasic waveform Superficial femoral artery distal: 95 cm/sec; triphasic waveform Profunda artery: 53 cm/sec; monophasic waveform Popliteal artery: 109 cm/sec; triphasic waveform Posterior tibial artery: 100 cm/sec; monophasic waveform Anterior tibial artery: 43 cm/sec; monophasic waveform Dorsalis pedis artery: 37 cm/sec; monophasic waveform ADDITIONAL FINDINGS: Scattered calcified plaque was seen throughout the mid superficial femoral artery without evidence of a focal flow acceleration or turbulence.. IMPRESSION: The duplex Doppler ultrasound of the left leg is consistent with tibial and pedal vessel disease of the left leg based on the diminished velocities and monophasic waveforms. No focal stenotic lesion was identified in the femoral or popliteal arteries. Greater sensitivity and specificity can be obtained with pre-and post exercise PVRs with RICARDA calculations. Also consider dedicated CTA for further anatomical detail.
--- NOTE | 2018-01-04 13:43 | Cons- Podiatry ---
General Information and HPI Consulting Request Date of Consult: 01/04/18 Requested By: Heriberto De Paz MD History of Present Illness: Estuardo is a 62-year-old insulin-dependent diabetic who presents to the ED with a 3 day history of redness, swelling and pain to his left great toe. Patient denies any obvious inciting factors. Patient denies trauma to the left foot. Patient denies a history of an open wound or drainage emanating from his left great toe. Patient denies systemic signs of infection. Patient denies nausea, vomiting, fever or chills. Allergies/Medications Allergies: Coded Allergies: REBECCA Inhibitors (Severe, RASH 06/12/16) Home Med List: Amlodipine Besylate 10 MG TABLET 10 MG PO DAILY HIGH BLOOD PRESSURE (Reported ) Aspirin (Ecotrin*) 81 MG TABLET.DR 81 MG PO DAILY HEART HEALTH (Reported) Epinephrine (Epipen 2-Torito) 0.3 MG/0.3 ML AUTO.INJCT 0.3 MG SC AD PRN ALLERGIC REACTION (Reported) Epinephrine (Epipen 2-Torito) 0.3 MG/0.3 ML AUTO.INJCT 1 PEN SQ ONE ALLERGIC REACTION Insulin Glargine,Hum.rec.anlog (Basaglar Kwikpen U-100) 100 UNIT/ML (3 ML) INSULN.PEN 50 UNITS SC BID DM (Reported) Metformin HCl 1,000 MG TABLET 1,000 MG PO BID DIABETES (Reported) Oxycodone HCl/Acetaminophen (Oxycodone-Acetaminophen 10-325) 10 MG-325 MG TABLET 1 TAB PO Q6-PRN PRN PAIN SCALE 4-6 (MODERATE) (Reported) Past History Medical History Blood Transfusion Hx: No Neurological: NONE EENT: NONE Cardiovascular: hypertension, hyperlipidemia Respiratory: NONE Gastrointestinal: NONE Hepatic: NONE Renal: NONE Musculoskeletal: JOINT PAIN Psychiatric: alcohol dependence, substance abuse Endocrine: diabetes Blood Disorders: NONE Cancer(s): NONE PROP DRAWER/Reproductive: NONE Surgical History Pertinent Surgical History: non-contributory Psychosocial History Where Do You Live? Home Services at Home: None Smoking Status: Former Smoker ETOH Use: alcoholic (Recent relapse) Illicit Drug Use: denies illicit drug use Living Will? yes Functional Ability ADLs Independent: dressing, eating, toileting, bathing. Ambulation: independent IADLs Independent: shopping, housework, finances, food prep, telephone, transportation , medication admin. Employment History Employment: Employed Profession/Employer: [employer] Review of Systems Review of Systems: Unremarkable except for that noted in history present illness Exam & Diagnostic Data Vital Signs and I&O Vital Signs Date Time Temp Pulse Resp B/P B/P Pulse O2 O2 Flow FiO2 Mean Ox Delivery Rate 01/04 0900 Room Air 01/04 0828 86 148/84 / 0500 98.5 86 20 148/84 94 / 0345 98.1 89 18 154/75 97 Room Air 01/04 0131 99.1 97 18 156/96 98 Room Air Intake & Output 01/04 1600 01/04 0800 01/04 0000 01/03 1600 01/03 0800 01/03 0000 Intake Total 2100 Output Total Balance 2100 Intake, IV 2100 Patient 280 lb Weight Weight Bed scale Measurement Method Physical Exam: Edema and cellulitis noted to the left great toe extending proximal to the metatarsal phalangeal joint by 3 or 4 cm circumferentially. Some maceration identified at the first interspace with questionable evidence of a healed plantar ulcer at the IP joint. No active drainage identified. No fluctuance or crepitus identified. Assessment/Plan Assessment/Plan Left great toe cellulitis. Recommend MRI to rule out an abscess or osteomyelitis. Given that the patient is afebrile and without a leukocytosis, consider holding the antibiotics pending the MRI findings. If any surgical indications are identified on MRI, we will take the patient to the OR tomorrow. Consult Acknowledgment - Thank you for your consult request. Attending MD Review Statement Attending Statement Attending MD Statement: examined this patient
--- NOTE | 2018-01-04 13:44 | PN- Student ---
Subjective Subjective: Hospital day 1: 62-year-old male with PMH of hypertension, hyperlipidemia, IDDM, presented with 3 day history of swelling, erythematous, warm, painful left great toe that was rated 8/10 pain on admission. Patient also complained of left calf pain as well. Patient was interviewed and examined at bed side. Patient was better but in mild acute distress. Patient was telling the story about how he ate lobster and binge drinking alexis 4 days in a row last week and discovered that his left great toe becoming swollen and painful. Today, patient complained left great toe swelling; however no pain, but he had left calf pain making him difficult to walk. Patient denied fever, chills, SOB, abdominal pain. Objective Objective: Physical exam: - Vital signs are stable: T: 98.5F // P: 86 // RR: 20 // BP: 148/84 // SpO2: 94% room air. - Patient is oriented to Time, Person and Place, coorporative and mild acute distress. - HEENT: NC/AT, PERRLA, EOMI, no lymphadenopathy. - Heart: normal S1 S2 with no additional murmur nor gallop. - Lungs: CTA bilaterally. - Abdomen: soft, non tender, normal bowel sound, no heptoslenomegaly, no guarding, no rigidity. - Extremities: . Left leg: swelling, mild erythematous, tender left calf; swollen, erythematous , non tender of left great toe with white pus on his plantar surface. . Right leg: normal. - Neuro: sensation intact bilaterally lower extremities. Labs: - CBC showed no leukocytosis 9.2, low RBCs 4.61, H/H is low 12.4/36.4, ESR is high at 70 - Chemistry: Glucose 172, HbA1c 8 Imaging: - Foot Xray: fracture at distal aspect of second digit proximal phalanx, no erosive osseous changes to suggest osteomyelitis. - Venous Doppler US: no DVT findings - Duplex scan of left leg arteries: left tibial and pedal vessel disease: decrease velocity and waveforms. Results Results: Laboratory Tests 01/04/18 0715: Hemoglobin A1c 8.0 H, PT 12.4, INR 1.14, Serum Alcohol < 10.0 01/04/18 0448: Lactic Acid Cancelled 01/04/18 0155: Anion Gap 9, Estimated GFR > 60, BUN/Creatinine Ratio 17.8, Glucose 172 H, Lactic Acid 1.4, Uric Acid 5.3, Calcium 8.8, Total Bilirubin 0.6, AST 16 L, ALT 42, Alkaline Phosphatase 123, Total Protein 6.6, Albumin 3.3 L, Globulin 3.3, Albumin/Globulin Ratio 1.0 L, CBC w Diff NO MAN DIFF REQ, RBC 4.61 L, MCV 78.9 L, MCH 26.8 L, MCHC 33.9, RDW 13.3, MPV 8.0, Gran % 71.5, Lymphocytes % 17.2 L, Monocytes % 9.5 H, Eosinophils % 1.4, Basophils % 0.4, Absolute Granulocytes 6.6 H, Absolute Lymphocytes 1.6, Absolute Monocytes 0.9 H, Absolute Eosinophils 0.1, Absolute Basophils 0, ESR Westergren 70 H Microbiology 01/04 203 BLOOD: Blood Culture - RECD 01/04 155 BLOOD: Blood Culture - RECD Assessment/Plan Assessment: Summary: 62-year-old male with PMH of hypertension, hyperlipidemia, IDDM, presented with 3 day history of swelling, erythematous, warm, painful left great toe that was rated 8/10 pain on admission. Patient also complained of left calf pain as well. PE showed swollen, erythematous left great toe and left calf. Imaging revealed no DVT, fracture of left proximal second toe, PVD on tibial and pedal vessels of left leg. No leukocytosis, high ESR, Glucose 172 and HbA1c 8. Problem list: 1. Left great toe cellulitis 2. PVD based on Duplex scan 3. HTN on Amlodipine 4. HLD 5. IDDM on Insulin Regular and Insulin Detemir Plan: - Vital per shift. - Per podiatry note: order MRI of left great toe, and discontinue all antibiotics including Ceftriaxone and Unasyn. - Follow up on his MRI to r/o osteomyelitis. Otherwise, consider OR tmrw. - Call surgery for consult regarding his PVD on left leg. - Schedule endo consult. #DVT prophylaxis: hold off for podiatry procedure. #Diabetic CC2 diet #IV access #Full code
--- NOTE | 2018-01-04 17:27 | PN- Endocrinology ---
Assessment/Plan Endoscopy Assessment: This patient came to the hospital for diabetes related foot infection. Patient glucose level is well controlled in the hospital now. His A1c is 8.0. Plan: I have contacted the housestaff, and was informed that they would like the patient to see us in the clinic after discharge. Please let the patient call our office at [phone] to see me when he is discharged. Meanwhile,please feel free to contact me if you need any help for glucose control during hospitalization or at the time of discharge. Subjective Subjective: I have just spoken to the resident taking care of the patient. Objective Last 24 Hrs of Vital Signs/I&O Vital Signs Date Time Temp Pulse Resp B/P B/P Pulse O2 O2 Flow FiO2 Mean Ox Delivery Rate 01/04 0900 Room Air 01/04 0828 86 148/84 01/04 0500 98.5 86 20 148/84 94 01/04 0345 98.1 89 18 154/75 97 Room Air 01/04 0131 99.1 97 18 156/96 98 Room Air Intake & Output 01/04 1600 01/04 0800 01/04 0000 Intake Total 855 2100 Output Total Balance 855 2100 Intake, IV 655 2100 Intake, Oral 200 Number 1 Bowel Movements Patient 280 lb Weight Weight Bed scale Measurement Method
[2018-01-04 22:19] VITALS: BP 134/80
--- NOTE | 2018-01-04 23:11 | MRI REPORT ---
EXAMINATION: MR FOOT WITHOUT CONTRAST, LEFT CLINICAL INFORMATION: Left great toe. Diabetic foot. Cellulitis. Rule out osteomyelitis. COMPARISON: Radiograph dated 01/04/2018. TECHNIQUE: Multiplanar MR imaging was obtained through the left forefoot and portions of the left midfoot without contrast material on a 1.5 Nae magnet. FINDINGS: There is generalized soft tissue swelling and subcutaneous edema at the great toe with mild skin thickening. At the superficial/plantar aspect of the flexor tendon of the great toe at the level of the distal phalangeal base and proximal phalanx, there is a thin, multilocular, ill-defined collection of fascial fluid which is of uncertain etiology. There is mild edema signal in the surrounding soft tissues. No discrete skin ulcerations are identified. Mild marrow edema signal is present in the great toe distal phalanx and proximal phalanx without significant abnormality on T1-weighted images. This edema signal is likely reactive to the surrounding cellulitis. No convincing evidence of osteomyelitis. A small effusion at the 1st MTP joint. The medial hallux sesamoid is bipartite with decreased signal intensity on T1-weighted images and mild edema signal. A moderate-sized effusion is present at the 1st MTP joint. There is a fracture of the 2nd toe proximal phalanx distally with remodeling of the jointline and surrounding periosteal changes. The bone marrow signal in the 2nd toe proximal phalangeal shaft is markedly edematous with low signal intensity on T1-weighted images. Bone marrow signal in the remainder of the 2nd toe and 2nd metatarsal is normal. Bone marrow signal throughout the other phalanges and metatarsals is normal. Plantar plates are intact. Tendons are normal in appearance except for the aforementioned peritendinous edema at the great toe. No tears or tenosynovitis. There is mild atrophy of the intrinsic foot musculature with increased signal intensity on T1-weighted images, consistent with diabetic neuropathic changes. Osteoarthritis is present in the tarsometatarsal joints partially included on the study. IMPRESSION: 1. Soft tissue swelling and edema at the great toe, consistent with cellulitis. Signal changes in the medial hallux sesamoid could be due to osteomyelitis, though the appearance is not specific. Osteoarthritis or stress reaction could also produce this appearance. No additional findings of osteomyelitis at the great toe. 2. Thin, multilocular collection of fluid at the plantar aspect of the great toe flexor tendon between the hallux sesamoids and the distal phalangeal insertion. This is also of uncertain etiology, potentially reactive fluid. A long, thin abscess is possible but less likely in the absence of an apparent skin ulceration. Specificity is limited without intravenous contrast 3. Subacute fracture of the 2nd toe proximal phalanx. Marrow signal changes at the fracture line are most compatible with partial healing. Superimposed osteomyelitis cannot be excluded.
[2018-01-05 06:30] VITALS: BP 160/90
--- NOTE | 2018-01-05 08:11 | PN- Student ---
Subjective Subjective: Hospital day 2: 62-year-old male with PMH of hypertension, hyperlipidemia, IDDM, presented with 3 day history of swollen, erythematous, warm, tender left great toe that was rated 8/10 on admission. Patient also complained of left calf pain as well. Patient was interviewed and examined at bed side. Patient stated he felt his condition much improving today. Patient was enjoying his breakfast. He stated that his left great toe and left calf pain was intermittent and less intense. Patient denied fever, chills, SOB, abdominal pain. Objective Objective: Physical exam: - Vital signs: T: 98F // P: 84 // RR: 20 // BP: 160/90 // SpO2: 97% room air. - Patient is oriented, coorporative, no acute distress. - HEENT: NC/AT, PERRLA, EOMI, no lymphadenopathy. - Heart: normal S1, S2, no murmur, no gallop. - Lungs: CTA bilaterally. - Abdomen: soft, non tender, tympanic bowel sound, no guarding, no rigidity. - Extremities: . Right le/5 muscle strength, sensation intact. . Left le/5 muscle strength, sensation intact, swollen erythematous warm left great toe improving compared to yesterday; warm, swollen, mild tender left calf. - Neuro: no tingling numbness bilaterally upper and lower extremities. Labs: - CBC yesterday showed no leukocytosis WBC at 9.2, ESR 70 - Chemistry: HbA1c 8 Micro: - Blood cx: pending Imaging: - MRI left leg result came back consistent with left great toe cellulitis, fracture of 2nd left toe in which superimposed osteomyeltitis cannot be excluded. - Foot Xray: fracture at distal aspect of second digit proximal phalanx, no erosive osseous changes to suggest osteomyelitis. - Venous Doppler US: no DVT findings - Duplex scan of left leg arteries: left tibial and pedal vessel disease: decrease velocity and waveform Results Results: Laboratory Tests 01/05/18 0725: Sodium Pending, Potassium Pending, Chloride Pending, Carbon Dioxide Pending, Anion Gap Pending, BUN Pending, Creatinine Pending, BUN/Creatinine Ratio Pending , CBC w Diff Pending, WBC Pending, RBC Pending, Hgb Pending, Hct Pending, MCV Pending, MCH Pending, MCHC Pending, RDW Pending, Plt Count Pending, MPV Pending 01/04/18 0715: Hemoglobin A1c 8.0 H, PT 12.4, INR 1.14, Serum Alcohol < 10.0 01/04/18 0448: Lactic Acid Cancelled 01/04/18 0155: Anion Gap 9, Estimated GFR > 60, BUN/Creatinine Ratio 17.8, Glucose 172 H, Lactic Acid 1.4, Uric Acid 5.3, Calcium 8.8, Total Bilirubin 0.6, AST 16 L, ALT 42, Alkaline Phosphatase 123, Total Protein 6.6, Albumin 3.3 L, Globulin 3.3, Albumin/Globulin Ratio 1.0 L, CBC w Diff NO MAN DIFF REQ, RBC 4.61 L, MCV 78.9 L, MCH 26.8 L, MCHC 33.9, RDW 13.3, MPV 8.0, Gran % 71.5, Lymphocytes % 17.2 L, Monocytes % 9.5 H, Eosinophils % 1.4, Basophils % 0.4, Absolute Granulocytes 6.6 H, Absolute Lymphocytes 1.6, Absolute Monocytes 0.9 H, Absolute Eosinophils 0.1, Absolute Basophils 0, ESR Westergren 70 H Microbiology 01/04 0203 BLOOD: Blood Culture - RECD 01/04 155 BLOOD: Blood Culture - RECD Assessment/Plan Assessment: Summary: 62-year-old male with PMH of hypertension, hyperlipidemia, IDDM, presented with 3 day history of swollen, erythematous, warm, tender left great toe that was rated 8/10 on admission. Patient also complained of left calf pain as well. MRI was consistent with left great toe cellulitis, Labs showed no leukocytosis. Vital signs showed high BP, no fever. PE was unremarkable except swollen, erythematous, mild tender left great toe and left calf. Problem list: 1. Left great toe cellulitis 2. Fracture on left second toe with possible superimposed osteomyolitis 3. PVD based on Duplex scan 4. HTN on Amlodipine 5. HLD 6. IDDM on Insulin Regular and Insulin Detemir Plan: - Have patient NPO for further procedure with podiatry. - Have patient follow up as outpatient clinic per endo note as his hospital glucose is under controlled (Glucose 91 at 6:30am today and HbA1c 8) - Follow recommendations per podiatry note. - Monitor patient for any acute emergency PVD s/s, notify vascular surgery about Doppler and Duplex scan result and possible consult today. - Vital sign per shift - AccuCheck blood glucose monitoring. - Follow up CBC, BEP am. #DVT prophylaxis with Alps #NPO #Full code
--- NOTE | 2018-01-05 08:20 | PN- Housestaff ---
See Addendum Narendra Macedo 01/05/18 0817: Subjective Follow-up For: Left great toe and feet swelling, redness. Complaints: pain in left foot at ambulation Subjective: Patient seen and examined at weight. There is no overnight event. His pain in left foot is subsided compared to yesterday but still he complaining of mild pain on ambulation. He is NPO since last night for any anticipated podiatry procedure. he denies fever, chills, chest pain, palpitation, shortness of breath , abdominal pain, diarrhea, burning micturition. Review of Systems Constitutional: Reports: see HPI. Objective Last 24 Hrs of Vital Signs/I&O Vital Signs Date Time Temp Pulse Resp B/P B/P Pulse O2 O2 Flow FiO2 Mean Ox Delivery Rate 01/05 1431 98.1 91 20 163/95 91 Room Air 01/05 0630 98.0 84 20 160/90 97 Room Air 01/04 2219 98.1 81 20 134/80 92 Room Air Intake & Output 01/05 1600 01/05 0800 01/05 0000 Intake Total 600 200 270 Output Total 400 1000 300 Balance 200 -800 -30 Intake, IV 600 100 150 Intake, Oral 100 120 Output, Urine 400 1000 300 Physical Exam General Appearance: Oriented X3, Cooperative Assessment/Plan Assessment: Assessment/problems list/plan: 60-year-old male with past medical history diabetes, hyperlipidemia, hypertension, binge drink of alcohol last week, eaten lobster last week presented to emergency department with a complaint of left great toe swelling redness, warmth on examination there was some white pus. Problems list; -Osteomyelitis/cellulitis of the left leg -Subacute fracture of left foot second digit -Peripheral neuropathy secondary to diabetes mellitus -Gout/Pogagra. -Peripheral vascular disease Plan: There were diminished pulse in the left foot compared to right foot. We were suspecting peripheral vascular disease. Both venous and arterial Doppler done to rule out deep venous thrombosis and peripheral vascular disease. There is no DVT.The duplex Doppler ultrasound of the left leg is consistent with tibial and pedal vessel disease of the left leg based on the diminished velocities and monophasic waveforms. No focal stenotic lesion was identified in the femoral or popliteal arteries. Greater sensitivity and specificity can be obtained with pre-and post exercise PVRs with RICARDA calculations. Also consider dedicated CTA for further anatomical detail. -Vascular consultation placed. MRI of the left foot is consistent with cellulitis. There is also loculated fluid collection which is more consistent with abscess but there is no ulceration. -Shoe Shiner recommended intervention tomorros. We will start antibiotic again for cellulitis tomorrow. -His blood pressure is high this increase from 1 30/80 to 1 60/90 will keep a check on it . -He is allergic to on REBECCA inhibitors. -DVT prophylaxis -CC2 diabetic diet Problem List: 1. Cellulitis Pain Ratin Pain Location: Left leg toe Pain Goal: Remain pain free Pain Plan: Pain med Tomorrow's Labs & Rationales: n/a Heriberto De Paz 01/05/18 1016: Attending MD Review Statement Attending Statement Attending MD Statement: examined this patient, discuss w/resident/PA/SENIOR COMMUNICATIONS SPECIALIST, agreed w/resident/PA/SENIOR COMMUNICATIONS SPECIALIST, discussed with family, reviewed EMR data (avail), discussed with nursing, discussed with case mgmt, reviewed images, amended to note Attending Assessment/Plan: 62 o/m with pmh of diabetes mellitus on insulin at home comes with sudden onset of swelling of left great toe with reddish coloration and pain at his toe. Patient admitted here for pain control with cellulitis with ?underlying abscess possible Osteomyelitis and less likely gangrene. USG arterial duplex with presence of peripheral vascualr disease, USG lower extremity negative for DVT, Hold off abx, follow up blood cultures. NSAIDs/ colchicine if no improvement. Podiatry consulted and OR intervention as per podiatry. Vascular surgery consult for peripheral vascular disease. DM controlled BS 100 am. RISS and titrate insulin as needed. Avoid alcohol which acts as trigger for acute gouty attacks. GI/dvt prophylaxis full code.
[2018-01-05 08:32] LABS: ABSOLUTE BASOPHIL COUNT 0 /CUMM (0.0-0.2); ABSOLUTE EOSINOPHIL COUNT 0.1 /CUMM (0.0-0.7); ABSOLUTE GRANULOCYTE CT 5.1 /CUMM (1.4-6.5); ABSOLUTE LYMPH COUNT 1.1 /CUMM (1.2-3.4); ABSOLUTE MONOCYTE COUNT 0.6 /CUMM (0.10-0.60); BASOPHIL % 0.6 % (0.0-2.0); EOSINOPHIL % 1.7 % (0-5); GRANULOCYTE % 73.3 % (42.2-75.2); HEMATOCRIT 38.3 % (42-52); MEAN CORPUSCULAR HGB 26.2 PG (27.0-31.0); MEAN CORPUSCULAR HGB CONC 33.2 G/DL (33.0-37.0); MEAN CORPUSCULAR VOLUME 78.8 FL (80.0-94.0); MEAN PLATELET VOLUME 8.3 FL (7.4-10.4); PLATELET COUNT 308 /CUMM (130-400); RBC DISTRIBUTION WIDTH 13.2 % (11.5-14.5); RED BLOOD CELL CT 4.86 /CUMM (4.70-6.10); WHITE BLOOD CELL COUNT 6.9 /CUMM (4.8-10.8)
[2018-01-05 14:31] VITALS: BP 163/95
--- NOTE | 2018-01-05 16:25 | Cons- Vascular Surgery ---
General Information and HPI Consulting Request Date of Consult: 01/05/18 Requested By: Zandra JUARES,Heriberto Reason for Consult: Left toe cellulitis Source of Information: patient, old records History of Present Illness: 62 yo male with a history of L. 1st toe erythema and pain. Pt. admitted for IV ABX and is being seen by podiatry. Pt. denies history of claudication or rest pain. Allergies/Medications Allergies: Coded Allergies: REBECCA Inhibitors (Severe, RASH 06/12/16) Home Med List: Amlodipine Besylate 10 MG TABLET 10 MG PO DAILY HIGH BLOOD PRESSURE (Reported ) Aspirin (Ecotrin*) 81 MG TABLET.DR 81 MG PO DAILY HEART HEALTH (Reported) Epinephrine (Epipen 2-Torito) 0.3 MG/0.3 ML AUTO.INJCT 0.3 MG SC AD PRN ALLERGIC REACTION (Reported) Epinephrine (Epipen 2-Torito) 0.3 MG/0.3 ML AUTO.INJCT 1 PEN SQ ONE ALLERGIC REACTION Insulin Glargine,Hum.rec.anlog (Basaglar Kwikpen U-100) 100 UNIT/ML (3 ML) INSULN.PEN 50 UNITS SC BID DM (Reported) Metformin HCl 1,000 MG TABLET 1,000 MG PO BID DIABETES (Reported) Oxycodone HCl/Acetaminophen (Oxycodone-Acetaminophen 10-325) 10 MG-325 MG TABLET 1 TAB PO Q6-PRN PRN PAIN SCALE 4-6 (MODERATE) (Reported) Current Medications: Current Medications Sig/Lauri Start time Last Medication Dose Route Stop Time Status Admin Acetaminophen 0 .STK-MED ONE 01/04 2029 DC IV Acetaminophen 1,000 MG ONCE ONE 01/04 2015 DC 01/04 N/A 1 UNIT IV 01/04 2029 2030 Acetaminophen 650 MG Q6P PRN 01/04 0330 AC 01/04 PO 1107 Amlodipine Besylate 10 MG DAILY 01/04 900 AC 01/05 PO 0916 Aspirin Buffered 81 MG DAILY 01/04 900 AC 01/05 PO 0916 Dextrose/Sodium 1,000 ML Q13H 01/05 615 DC 01/05 Chloride IV 0608 Dextrose/Sodium 1,000 ML Q13H 01/04 0515 DC 01/04 Chloride IV 01/04 1814 0556 Insulin Aspart 0 TIDAC 01/05 1700 AC SC Insulin Aspart 0 TIDAC 01/05 0800 CAN SC Insulin Aspart 0 AT BEDTIME 01/04 2100 DC SC Insulin Detemir 12 UNITS BID 01/04 900 AC 01/05 [place] 0917 Insulin Human Regular 0 Q6 01/05 0600 DC 01/05 [place] 1308 Insulin Human Regular 0 Q6 01/04 0600 DC 01/04 [place] 1306 Past History Medical History Blood Transfusion Hx: No Neurological: NONE EENT: NONE Cardiovascular: hypertension, hyperlipidemia Respiratory: NONE Gastrointestinal: NONE Hepatic: NONE Renal: NONE Musculoskeletal: JOINT PAIN Psychiatric: alcohol dependence, substance abuse Endocrine: diabetes Blood Disorders: NONE Cancer(s): NONE DELIVERY TECH/Reproductive: NONE Surgical History Pertinent Surgical History: non-contributory Psychosocial History Where Do You Live? Home Services at Home: None Smoking Status: Former Smoker ETOH Use: alcoholic (Recent relapse) Illicit Drug Use: denies illicit drug use Living Will? yes Functional Ability ADLs Independent: dressing, eating, toileting, bathing. Ambulation: independent IADLs Independent: shopping, housework, finances, food prep, telephone, transportation , medication admin. Employment History Employment: Employed Profession/Employer: [employer] Review of Systems Review of Systems Constitutional: Reports: chills. Denies: no symptoms, fever. All Other Systems: Reviewed and Negative Exam & Diagnostic Data Vital Signs and I&O Vital Signs Date Time Temp Pulse Resp B/P B/P Pulse O2 O2 Flow FiO2 Mean Ox Delivery Rate 01/05 1431 98.1 91 20 163/95 91 Room Air 01/05 0630 98.0 84 20 160/90 97 Room Air 01/04 2219 98.1 81 20 134/80 92 Room Air Intake & Output 01/05 1600 01/05 0801/05 0000 01/04 1600 01/04 0800 01/04 0000 Intake Total 600 200 053 975 9088 Output Total 400 1000 300 Balance 200 -800 -30 855 2100 Intake, IV 600 100 454 208 4404 Intake, Oral 100 120 200 Number 1 Bowel Movements Output, Urine 400 1000 300 Patient 280 lb Weight Weight Bed scale Measurement Method Physical Exam: PE: AF/VSS B/L LE well perfused, + erythema, + 1st toe edema,+ DP pulse Physical Exam General Appearance: well developed/nourished, no apparent distress, alert, awake Extremities: normal capillary refill, no edema, swelling Assessment/Plan Assessment/Plan 62 yo with IDDM and foot cellulitis/first toe 1.) Stable from vascular 2.) May need podiatry for I and D based on MRI/clinical exam 3.) LE elevation 4.) Continue antibiotics Consult Acknowledgment - Thank you for your consult request.
[2018-01-05 22:05] VITALS: BP 140/70
[2018-01-06 06:55] VITALS: BP 142/80
--- NOTE | 2018-01-06 08:09 | PN- Student ---
Diamond Raza 01/06/18 0808: Subjective Subjective: Hospital day 3: 62-year-old male with PMH of hypertension, hyperlipidemia, IDDM, presented with 3 day history of swollen, erythematous, warm, tender left great toe that was rated 8/10 on admission. Patient also complained of left calf pain as well. Patient was interviewed and examined at bed side. Patient had no major complaints and no acute events overnight. Patient denied headache, chest pain, SOB, fever, chills, weakness, abdominal pain. Objective Objective: Physical exam: - Vitals signs: T: 98.8F // P: 84 // RR: 20 //BP: 142/80 // SpO2: 96% room air. - Patient is oriented, coorporative, well-nourished, no acute distress. - HEENT: NC/AT, PERRLA, EOMI, no lymphadenopathy. - Cardio: normal S1, S2 with no murmur, no gallop. - Pulmonary: CTA bilaterally - Abdomen: normal bowel sounds, no distention, non tender, no guarding nor rigidity. - Extremities: . Left leg: mild swollen, erythematous calf with grade 2 pitting edema; decrease swollen erythematous left great toe with brownish small puncture on plantar surface where the white pus was seen yesterday, 1+ dorsalis pedis, no pallor, no paresthesia . Right le+ dorsalis pedis, mild pitting edema. Labs: - CBC: no leukocytosis WBC, ESR 70 - Chemistry: HbA1c 8 - AccuCheck glucose 143 at 6:52am - Blood cx: no growth after 2 days. Imaging: - MRI left leg was consistent with left great toe cellulitis, fracture of 2nd left toe in which superimposed osteomyeltitis cannot be excluded. - Foot Xray: fracture at distal aspect of second digit proximal phalanx, no erosive osseous changes to suggest osteomyelitis. - Venous Doppler US: no DVT findings - Duplex scan of left leg arteries: left tibial and pedal vessel disease: decrease velocity and monophasic waveforms Results Results: Laboratory Tests 01/05/18 0725: Anion Gap 10, Estimated GFR > 60, BUN/Creatinine Ratio 12.9, CBC w Diff NO MAN DIFF REQ, RBC 4.86, MCV 78.8 L, MCH 26.2 L, MCHC 33.2, RDW 13.2, MPV 8.3, Gran % 73.3, Lymphocytes % 15.5 L, Monocytes % 8.9, Eosinophils % 1.7, Basophils % 0.6, Absolute Granulocytes 5.1, Absolute Lymphocytes 1.1 L, Absolute Monocytes 0.6, Absolute Eosinophils 0.1, Absolute Basophils 0 01/04/18 0715: Hemoglobin A1c 8.0 H, PT 12.4, INR 1.14, Serum Alcohol < 10.0 01/04/18 0448: Lactic Acid Cancelled 01/04/18 0155: Anion Gap 9, Estimated GFR > 60, BUN/Creatinine Ratio 17.8, Glucose 172 H, Lactic Acid 1.4, Uric Acid 5.3, Calcium 8.8, Total Bilirubin 0.6, AST 16 L, ALT 42, Alkaline Phosphatase 123, Total Protein 6.6, Albumin 3.3 L, Globulin 3.3, Albumin/Globulin Ratio 1.0 L, CBC w Diff NO MAN DIFF REQ, RBC 4.61 L, MCV 78.9 L, MCH 26.8 L, MCHC 33.9, RDW 13.3, MPV 8.0, Gran % 71.5, Lymphocytes % 17.2 L, Monocytes % 9.5 H, Eosinophils % 1.4, Basophils % 0.4, Absolute Granulocytes 6.6 H, Absolute Lymphocytes 1.6, Absolute Monocytes 0.9 H, Absolute Eosinophils 0.1, Absolute Basophils 0, ESR Westergren 70 H Microbiology 01/04 0203 BLOOD: Blood Culture - RES 01/04 155 BLOOD: Blood Culture - RES Assessment/Plan Assessment: Summary: 62-year-old male with PMH of hypertension, hyperlipidemia, IDDM, presented with 3 day history of swollen, erythematous, warm, tender left great toe and left calf pain. MRI was consistent with left great toe cellulitis, Labs showed no leukocytosis. Vital signs showed high BP, no fever. PE revealed improvement on left great toe and left calf. Patient is also allergic to REBECCA-I that can cause angioedema. Problem list: Current diagnoses: 1. Left great toe cellulitis with pus. 2. Fracture on left second toe with possible superimposed osteomyolitis 3. PVD based on Duplex scan Chronic conditions: 4. HTN on Amlodipine 5. HLD 6. IDDM Plan: 1. Left great toe cellulitis: - Patient was NPO for breakfast for further podiatry procedure. - Pt will be taken to OR today by Dr. Yu for possible pus drainage and bone bx, blood cx if neccesssary. - Continue IV Unasyn once the procedure is done. - Patient can be back on CC2 diet once procedure is done. 2. Fracture on left second toe: - Follow up with podiatry. 3. PVD of left leg: Per surgery note: - No further intervention because patient did not show s/s of acute limb ischemia. - Leg elevation at 15 degree to reduce edema. 4. HTN on Amlodipine 5. HLD: patient request for lipid-lowering drug, concerned that he was not allergic to statin. Confirm with attending on medications. 6. IDDM: Per endo note: - Have patient follow up endo clinic as outpatient. #DVT prophylaxis with Alps #NPO #Full code HellenNarendra 01/06/18 1436: Resident Review Statement Resident Statement: She is medical student. Discussed with her, agree with her.Feedback given
--- NOTE | 2018-01-06 08:24 | PN- Housestaff ---
Narendra Macedo 01/06/18 0803: Subjective Follow-up For: Left foot cellulitis, peripheral vascular disease. Complaints: no complaints Subjective: Patient seen and examined at bed. His condition is improved. He has no active complaint. Patient was concerned regarding starting lipid lowering medicine statins, he wanted to put him on statin at discharge because he is not allergic to statin. Patient concerns addressed and counseled regarding statin. there was no overnight event he is NPO since midnight for expected podiatry procedure. He denies throbbing pain left leg, shortness of breath, chest pain, palpitation, abdominal pain, loose motion, constipation, burning micturition, headache, nausea, fever, chills. Review of Systems Constitutional: Reports: see HPI. Objective Last 24 Hrs of Vital Signs/I&O Vital Signs Date Time Temp Pulse Resp B/P B/P Pulse O2 O2 Flow FiO2 Mean Ox Delivery Rate 01/06 0655 98.8 84 20 142/80 96 01/05 2205 98.7 84 20 140/70 97 01/05 1431 98.1 91 20 163/95 91 Room Air Intake & Output 01/06 1600 01/06 0800 01/06 0000 Intake Total 510 Output Total Balance 510 Intake, IV 10 Intake, Oral 500 Physical Exam General Appearance: Alert, Oriented X3, Cooperative, No Acute Distress Cardiovascular: Normal S1, Normal S2 Lungs: Clear to Auscultation, Normal Air Movement Abdomen: Normal Bowel Sounds, Soft, No Tenderness, No Hepatospenomegaly, No Masses Extremities: Left lower leg pain subsided, redness subsided compare to yesterday , pulses still +1, no pallor, no yellow or black discolouration, no pus discharge, small cut on plantar side of big toe. Assessment/Plan Assessment: Assessment/problems list/plan: 60-year-old male with past medical history diabetes, hyperlipidemia, hypertension, presented to emergency department with a complaint of left great toe swelling redness, warmth its started after binge drink of alcohol last week and eaten lobster last week. On examination there was some white pus in big toe planar area and a small cut which subsided comare to yesterday, dimisnis pulses, no pallor, no black discolouration. His lab was not significant except for uncontrolled blood sugar. Problems list; -cellulitis/ Osteomyelitis of the left leg -Peripheral vascular disease -Subacute fracture of left foot second digit -Peripheral neuropathy secondary to diabetes mellitus -Gout/Pogagra Plan: =Cellulitis: Patient history clinical findings are more consistent with cellulitis, MRI report also in favour of cellulitis. There is also some pus collection. Podiatric procedure done. We will start antibiotic . Will treat him as cellulitis. Restart diabetic CC 2 diet. Check blood sugar for sliding scale. = Peripheral vascular disease: There were diminished pulse in the left foot compared to right foot. We were suspecting peripheral vascular disease.The duplex Doppler ultrasound of the left leg is consistent with tibial and pedal vessel disease of the left leg based on the diminished velocities and monophasic waveforms. No focal stenotic lesion was identified in the femoral or popliteal arteries. Vascular surgery consultation placed. They will follow-up on patient.Greater sensitivity and specificity can be obtained with pre-and post exercise PVRs with RICARDA calculations. Also consider dedicated CTA for further anatomical detail. Vascular surgeon advised to continue antibiotic , leg elevation and consult with podiatry. stable from vascular = DVT: Venous Doppler done to rule out deep venous thrombosis. There is no DVT. = Gout: -MRI showed no effusion left great toe joint, gout is less likely. -He is allergic to on REBECCA inhibitors. Had a severe reaction, angioedema. -DVT prophylaxis Problem List: 1. Cellulitis Pain Ratin Pain Location: N/A Pain Goal: Remain pain free Pain Plan: N/A Tomorrow's Labs & Rationales: FOLLOW UP OLD LAB, accucheck blood sugar. Zandra,Heriberto 01/06/18 0955: Attending MD Review Statement Attending Statement Attending MD Statement: examined this patient, discuss w/resident/PA/DETASSELING CREW SUPERVISOR, agreed w/resident/PA/DETASSELING CREW SUPERVISOR, discussed with family, reviewed EMR data (avail), discussed with nursing, discussed with case mgmt, reviewed images, amended to note Attending Assessment/Plan: 62 o/m with pmh of diabetes mellitus on insulin at home comes with sudden onset of swelling of left great toe with reddish coloration and pain at his toe. Patient admitted here for pain control with cellulitis with ?underlying abscess possible Osteomyelitis. Overnight no events. Vitals stable, afebrile. Hold off abx, follow up blood cultures. Resume abx immediately post podiatry intervention. Podiatry consulted and OR intervention as per podiatry today. NPO. Vascular surgery no acute intervention, follow up outpatient for peripheral vascular disease. USG arterial duplex with presence of peripheral vascualr disease, DM controlled. RISS and titrate insulin as needed. Avoid alcohol which acts as trigger for acute gouty attacks. GI/dvt prophylaxis full code.
--- NOTE | 2018-01-06 16:56 | Operative Report ---
Operative/Inv Procedure Report Surgery Date: 01/06/18 Name of Procedure: 1 Open incision and drainage deep to the deep fascia with exposure of the tendon and tendon sheath multiple sites left foot 2 Bone biopsy left foot 3 Intra-operative administration of ankle block anesthesia 4 Excisional debridement Pre-Operative Diagnosis: 1 Plantar space abscess left 2 Osteomyelitis left Post-Operative Diagnosis: The same Estimated Blood Loss: less than 50ml Surgeon/Adhesive Bandage Making Operator: REBECA BRYANT DPM Anesthesia: moderate sedation, block
[2018-01-06 22:49] VITALS: BP 144/80
[2018-01-07 06:37] VITALS: BP 150/84
[2018-01-07 08:16] LABS: ABSOLUTE BASOPHIL COUNT 0 /CUMM (0.0-0.2); ABSOLUTE EOSINOPHIL COUNT 0.1 /CUMM (0.0-0.7); ABSOLUTE GRANULOCYTE CT 5.6 /CUMM (1.4-6.5); ABSOLUTE LYMPH COUNT 1.1 /CUMM (1.2-3.4); ABSOLUTE MONOCYTE COUNT 0.7 /CUMM (0.10-0.60); BASOPHIL % 0.5 % (0.0-2.0); EOSINOPHIL % 1.4 % (0-5); GRANULOCYTE % 74.4 % (42.2-75.2); HEMATOCRIT 37.1 % (42-52); MEAN CORPUSCULAR HGB 26.6 PG (27.0-31.0); MEAN CORPUSCULAR HGB CONC 33.7 G/DL (33.0-37.0); MEAN CORPUSCULAR VOLUME 78.8 FL (80.0-94.0); MEAN PLATELET VOLUME 8.2 FL (7.4-10.4); PLATELET COUNT 312 /CUMM (130-400); RBC DISTRIBUTION WIDTH 13.4 % (11.5-14.5); RED BLOOD CELL CT 4.71 /CUMM (4.70-6.10); WHITE BLOOD CELL COUNT 7.6 /CUMM (4.8-10.8)
--- NOTE | 2018-01-07 08:16 | PN- Student ---
Subjective Subjective: Hospital day 4: 62-year-old male with PMH of hypertension, hyperlipidemia, IDDM, presented with 3 day history of swollen, erythematous, warm, tender left great toe that was rated 8/10 on admission. Patient also complained of left calf pain as well. Patient was in OR yesterday for podiatry procedure on pus drainage and bone biopsy of left foot. Patient was interviewed and examined at bed side. Patient was in mild acute distress as he complained pain on his left leg and left foot post-op. Patient requested for stronger pain med other than Tylenol he was given. Objective Objective: Physical exam: - Vital signs: T: 97.8F // P: 76 // RR: 20 // BP: 150/64 // SpO2: 96% room air. - Patient is oriented to Time, Person and Place, and in mild acute distress due to pain. - HEENT: NC/AT, PERRLA, EOMI, no lymphadenopathy. - Cardio: normal S1, S2 with no murmur, no gallop. - Pulmonary: CTA bilaterally - Abdomen: normal bowel sounds, no distention, non tender, no guarding nor rigidity. - Extremities: . Left leg: painful leg and foot, tenderness on palpation. . Right leg: normal. Labs: - AccuCheck glucose 102 at 7:45am, 202 at 11:40am Imaging: - OR pre/post op dx suggested cellulitis/osteomyelitis on left great toe. Awaiting for result from bone bx, culture, gram stain. - MRI suggested left great toe cellulitis, fracture of 2nd left toe in which superimposed osteomyeltitis cannot be excluded. - Venous Doppler US: no DVT findings - Duplex scan of left leg arteries: left tibial and pedal vessel disease: decrease velocity and monophasic waveforms. - Foot Xray: fracture at distal aspect of second digit proximal phalanx, no erosive osseous changes to suggest osteomyelitis. Results Results: Laboratory Tests 01/07/18 0705: CBC w Diff Pending, WBC Pending, RBC Pending, Hgb Pending, Hct Pending, MCV Pending, MCH Pending, MCHC Pending, RDW Pending, Plt Count Pending, MPV Pending 01/05/18 0725: Anion Gap 10, Estimated GFR > 60, BUN/Creatinine Ratio 12.9, CBC w Diff NO MAN DIFF REQ, RBC 4.86, MCV 78.8 L, MCH 26.2 L, MCHC 33.2, RDW 13.2, MPV 8.3, Gran % 73.3, Lymphocytes % 15.5 L, Monocytes % 8.9, Eosinophils % 1.7, Basophils % 0.6, Absolute Granulocytes 5.1, Absolute Lymphocytes 1.1 L, Absolute Monocytes 0.6, Absolute Eosinophils 0.1, Absolute Basophils 0 Microbiology 01/06 144 EXTREMITIE: Gross Specimen Examination - RECD 01/06 144 EXTREMITIE: Gram Stain - RECD 01/06 1417 EXTREMITIE: Culture & Sensitivity - CAN Cancelled: ORDER ERROR 01/06 1417 EXTREMITIE: Gram Stain - CAN Cancelled: ORDER ERROR Assessment/Plan Assessment: Summary: 62-year-old male with PMH of hypertension, hyperlipidemia, IDDM, presented with 3 day history of swollen, erythematous, warm, tender left great toe and left calf pain. Patient was in OR yesterday for podiatry procedure on pus drainage and bone biopsy of left foot. Patient complained of post-op pain on left leg and requested stronger pain med. Problem list: Current diagnoses: 1. Left great toe cellulitis/osteomyelitis . 2. Fracture on left second toe with possible superimposed osteomyolitis 3. PVD left leg Chronic conditions: 4. HTN on Amlodipine 5. HLD 6. IDDM Plan: - Continue IV Unasyn 3g q6 with normal saline. - IV Morphine 2 mg q4-6 prn for pain scale 7-9 - PO Oxycodone 5 mg q6 prn for pain scale 4-6 - Follow up podiatry note: pt will be back to OR for further debridgement. NPO pt for dinner. - Follow up on bone bx, cx and gram stain. - Head up with ID in place of PEG line for 4-week course Abx once podiatry confirm osteomyelitis. Per ID note: continue Unasyn IV, await for pt return from OR tomorrow am. - Monitor blood sugar with AccuCheck - Vital per shift #DVT prophylaxis with Alps #Full code
--- NOTE | 2018-01-07 08:23 | PN- Housestaff ---
Narendra Macedo 01/07/18 0819: Subjective Follow-up For: Cellulitis of the left foot. Complaints: Pain Subjective: Patient seen and examined at bed. He is complaining pain in left whole foot since 2 AM last night, 6/10 in intensity, he said initially there was a discomfort but after podiatric procedure is getting worse. He demanding for strong pain medication. Patient complaint is addressed. He denies fever, chills, chest pain, palpitation, diarrhea,, burning micturition. Review of Systems Constitutional: Reports: see HPI. Objective Last 24 Hrs of Vital Signs/I&O Vital Signs Date Time Temp Pulse Resp B/P B/P Pulse O2 O2 Flow FiO2 Mean Ox Delivery Rate 01/07 1600 Room Air 01/07 1430 98.5 83 20 148/75 93 Room Air 01/07 0753 76 150/84 01/07 0637 97.8 76 20 150/84 96 Room Air 01/06 2249 98.1 78 20 144/80 94 Room Air Intake & Output 01/07 1600 01/07 0800 01/07 0000 Intake Total 420 200 Output Total 0 Balance 420 200 0 Intake, IV 120 200 Intake, Oral 300 Number 1 Bowel Movements Output, Stool 0 Physical Exam General Appearance: Oriented X3, Cooperative, No Acute Distress Assessment/Plan Assessment: Assessment/problems list/plan: 60-year-old male with past medical history diabetes, hyperlipidemia, hypertension, presented to emergency department with a complaint of left great toe swelling redness, warmth its started after binge drink of alcohol last week and eaten lobster last week. On examination there was some white pus in big toe planar area and a small cut, dimisnis pulses, no pallor, no black discolouration. His lab was not significant except for uncontrolled blood sugar. Problems list; -Osteomyelitis/cellulitis of the left foot(big toe) -Peripheral vascular disease -Subacute fracture of left foot second digit -Peripheral neuropathy secondary to diabetes mellitus -Gout/Pogagra Plan: =Osteomyelitis/abscess left big toe plantar surface /cellulitis: Patient history clinical findings are more consistent with osteomyelitis/ cellulitis. MRI in favour of cellulitis and loculated abscess. Podiatric procedure done. Debridement and abscess drainage done. There was up to 50 mL pus collection, it was drained and sent for gram staining and culture. Podiatry suspecting osteomyelitis bone sample has taken and sent for biopsy, antibiotics restarted, we are planning per IV antibiotic for 4-6 week and PICC line after discussion with ID and podiatry. Biopsy report is awaiting in am tomorrow. strong pain medication advised to control bone pain after bone biopsy. = Peripheral vascular disease: There were diminished pulse in the left foot compared to right foot. We were suspecting peripheral vascular disease.The duplex Doppler ultrasound of the left leg is consistent with tibial and pedal vessel disease of the left leg based on the diminished velocities and monophasic waveforms. No focal stenotic lesion was identified in the femoral or popliteal arteries. Vascular surgery consultation placed. They will follow-up on patient.Greater sensitivity and specificity can be obtained with pre-and post exercise PVRs with RICARDA calculations. Also consider dedicated CTA for further anatomical detail. Vascular surgeon advised to continue antibiotic , leg elevation and consult with podiatry. stable from vascular = DVT: Venous Doppler done to rule out deep venous thrombosis. There is no DVT. = Gout: -MRI showed no effusion left great toe joint, gout is less likely. -He is allergic to on REBECCA inhibitors. Had a severe reaction, angioedema. -DVT prophylaxis Problem List: 1. Osteomyelitis Pain Ratin Pain Location: left foot Pain Goal: Remain pain free Pain Plan: Pain med Tomorrow's Labs & Rationales: n/a Heriberto De Paz 01/07/18 1013: Attending MD Review Statement Attending Statement Attending MD Statement: examined this patient, discuss w/resident/PA/BOX FINISHER, agreed w/resident/PA/BOX FINISHER, discussed with family, reviewed EMR data (avail), discussed with nursing, discussed with case mgmt, reviewed images, amended to note Attending Assessment/Plan: 62 o/m with pmh of diabetes mellitus on insulin at home comes with sudden onset of swelling of left great toe with reddish coloration and pain at his toe. Patient admitted here for pain control with cellulitis with plantar space abscess possible Osteomyelitis s/p debridement and bone specimen sent. Overnight no events. Vitals stable, afebrile. Continue abx, follow up blood cultures. ID consult and follow cultures/podiatry. ?PICC line/duration of abx. Vascular surgery no acute intervention, follow up outpatient for peripheral vascular disease. USG arterial duplex with presence of peripheral vascualr disease. ASA/statin at discharge. DM controlled. RISS and titrate insulin as needed. Avoid alcohol which acts as trigger for acute gouty attacks. Endocronology follow up as outpatient. GI/dvt prophylaxis full code.
--- NOTE | 2018-01-07 11:37 | Cons- Infect Disease ---
General Information and HPI Consulting Request Date of Consult: 01/07/18 Requested By: Heriberto De Paz MD Reason for Consult: Osteomyelitis of the left great toe Source of Information: patient History of Present Illness: This is a 62-year-old man with a history of hypertension, hyperlipidemia and diabetes, admitted on January 04 with a 3 day history of pain, swelling and erythema of the left great toe, extending to the dorsum of the foot, with no history of trauma and with no associated fevers or chills. On admission he was afebrile. Laboratory data revealed a white blood cell count of 9000, ESR 70, glucose 172, BUN/creatinine 16 and 0.9, with normal liver enzymes, INR 1.14. X- ray of the left foot revealed a fracture at the distal aspect of the second digit proximal phalanx, with no evidence of osteomyelitis. MRI of the left foot revealed soft tissue swelling and edema of the great toe, with signal changes in the medial hallux sesamoid possibly secondary to osteomyelitis; a thin, multilocular collection of fluid was noted between the hallux sesamoids and the distal phalangeal insertion, possibly suggestive of an abscess. Doppler of the left leg was negative. Arterial Doppler of the left leg revealed tibial and pedal vessel disease. He was given a dose of Ceftriaxone, followed by Unasyn and was then followed off antibiotics. On January 06 he was taken to the OR for excisional debridement, bone biopsy and drainage of a plantar space abscess. Postop he was placed on Unasyn pending cultures. He has remained afebrile since admission and his white blood cell count has remained normal. He does report pain overnight but feels improved this morning. Allergies/Medications Allergies: Coded Allergies: REBECCA Inhibitors (Severe, RASH 06/12/16) Home Med List: Amlodipine Besylate 10 MG TABLET 10 MG PO DAILY HIGH BLOOD PRESSURE (Reported ) Aspirin (Ecotrin*) 81 MG TABLET.DR 81 MG PO DAILY HEART HEALTH (Reported) Epinephrine (Epipen 2-Torito) 0.3 MG/0.3 ML AUTO.INJCT 0.3 MG SC AD PRN ALLERGIC REACTION (Reported) Epinephrine (Epipen 2-Torito) 0.3 MG/0.3 ML AUTO.INJCT 1 PEN SQ ONE ALLERGIC REACTION Insulin Glargine,Hum.rec.anlog (Basaglar Kwikpen U-100) 100 UNIT/ML (3 ML) INSULN.PEN 50 UNITS SC BID DM (Reported) Metformin HCl 1,000 MG TABLET 1,000 MG PO BID DIABETES (Reported) Oxycodone HCl/Acetaminophen (Oxycodone-Acetaminophen 10-325) 10 MG-325 MG TABLET 1 TAB PO Q6-PRN PRN PAIN SCALE 4-6 (MODERATE) (Reported) Past History Travel History Traveled to [place] past 21 day No Medical History Blood Transfusion Hx: No Neurological: NONE EENT: NONE Cardiovascular: hypertension, hyperlipidemia Respiratory: NONE Gastrointestinal: NONE Hepatic: NONE Renal: NONE Psychiatric: alcohol dependence, substance abuse Endocrine: diabetes Blood Disorders: NONE Cancer(s): NONE 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 Home Services at Home: None Smoking Status: Former Smoker ETOH Use: alcoholic (Recent relapse) Illicit Drug Use: denies illicit drug use Living Will? yes Functional Ability ADLs Independent: dressing, eating, toileting, bathing. Ambulation: independent IADLs Independent: shopping, housework, finances, food prep, telephone, transportation , medication admin. Employment History Employment: Employed Profession/Employer: [employer] Review of Systems Review of Systems All Other Systems: Reviewed and Negative Exam & Diagnostic Data Last 24 Hrs of Vital Signs/I&O Vital Signs Date Time Temp Pulse Resp B/P B/P Pulse O2 O2 Flow FiO2 Mean Ox Delivery Rate 01/07 0753 76 150/84 01/07 0637 97.8 76 20 150/84 96 Room Air 01/06 2249 98.1 78 20 144/80 94 Room Air Intake & Output 01/07 1600 01/07 0800 01/07 0000 Intake Total 200 Output Total 0 Balance 200 0 Intake, IV 200 Number 1 Bowel Movements Output, Stool 0 Physical Exam Other Physical Findings: He is awake and alert in no acute distress. He is afebrile. Skin reveals no rash. HEENT exam is negative. Neck is supple with no adenopathy. Lungs are clear. Heart regular rhythm with no murmur. Abdomen is soft, nontender with positive bowel sounds. Back no CVA tenderness. Extremities left foot dressing intact. Neuro is without focality. Last 24 Hours of Lab Results: Laboratory Tests 01/07 705 Hematology CBC w Diff NO MAN DIFF REQ WBC (4.8 - 10.8 /CUMM) 7.6 RBC (4.70 - 6.10 /CUMM) 4.71 Hgb (14.0 - 18.0 G/DL) 12.5 L Hct (42 - 52 %) 37.1 L MCV (80.0 - 94.0 FL) 78.8 L MCH (27.0 - 31.0 PG) 26.6 L MCHC (33.0 - 37.0 G/DL) 33.7 RDW (11.5 - 14.5 %) 13.4 Plt Count (130 - 400 /CUMM) 312 MPV (7.4 - 10.4 FL) 8.2 Gran % (42.2 - 75.2 %) 74.4 Lymphocytes % (20.5 - 51.1 %) 14.2 L Monocytes % (1.7 - 9.3 %) 9.5 H Eosinophils % (0 - 5 %) 1.4 Basophils % (0.0 - 2.0 %) 0.5 Absolute Granulocytes (1.4 - 6.5 /CUMM) 5.6 Absolute Lymphocytes (1.2 - 3.4 /CUMM) 1.1 L Absolute Monocytes (0.10 - 0.60 /CUMM) 0.7 H Absolute Eosinophils (0.0 - 0.7 /CUMM) 0.1 Absolute Basophils (0.0 - 0.2 /CUMM) 0 Last 24 Hours of Bobby Results: Blood cultures 2 January 04 negative OR culture labeled left foot bone January 06 pending Diagnostic Data Recent Imaging Findings: X-ray of the left foot revealed a fracture at the distal aspect of the second digit proximal phalanx, with no evidence of osteomyelitis. MRI of the left foot revealed soft tissue swelling and edema of the great toe, with signal changes in the medial hallux sesamoid possibly secondary to osteomyelitis; a thin, multilocular collection of fluid was noted between the hallux sesamoids and the distal phalangeal insertion, possibly suggestive of an abscess. Doppler of the left leg was negative. Arterial Doppler of the left leg revealed tibial and pedal vessel disease. Assessment/Plan Assessment/Plan Impression: This is a 62-year-old man with a history of diabetes admitted on January 04 with a 3 day history of pain, swelling and erythema of the left great toe, extending to the dorsum of the foot, found to be afebrile with a normal white blood cell count and with an MRI of the left foot revealing signal changes in the medial hallux sesamoid, possibly secondary to osteomyelitis and a collection of fluid between the hallux sesamoids and the distal phalangeal insertion, suggestive of a possible abscess, now 1 day status post excisional debridement, bone biopsy and drainage of a plantar space abscess. His clinical picture is suggestive of osteomyelitis with a secondary abscess of the left foot and cellulitis of the left great toe. His OR cultures are pending and he can be continued on Unasyn pending final results. He will likely require a 4 week course of IV antibiotics for residual osteomyelitis. He is scheduled for a return to the OR in the a.m. for further debridement. Suggestion: 1. Follow-up OR cultures 2. Await return to the OR in the a.m. 3. Continue Unasyn pending above Consult Acknowledgment - Thank you for your consult request.
[2018-01-07 14:30] VITALS: BP 148/75
[2018-01-07 22:21] VITALS: BP 112/60
[2018-01-08 06:01] VITALS: BP 130/80
[2018-01-08 08:30] LABS: ABSOLUTE BASOPHIL COUNT 0.1 /CUMM (0.0-0.2); ABSOLUTE EOSINOPHIL COUNT 0.1 /CUMM (0.0-0.7); ABSOLUTE GRANULOCYTE CT 5.1 /CUMM (1.4-6.5); ABSOLUTE LYMPH COUNT 1.6 /CUMM (1.2-3.4); ABSOLUTE MONOCYTE COUNT 0.8 /CUMM (0.10-0.60); BASOPHIL % 0.9 % (0.0-2.0); EOSINOPHIL % 1.9 % (0-5); GRANULOCYTE % 66.3 % (42.2-75.2); HEMATOCRIT 36.9 % (42-52); MEAN CORPUSCULAR HGB 26.3 PG (27.0-31.0); MEAN CORPUSCULAR HGB CONC 33.1 G/DL (33.0-37.0); MEAN CORPUSCULAR VOLUME 79.4 FL (80.0-94.0); MEAN PLATELET VOLUME 8.1 FL (7.4-10.4); PLATELET COUNT 318 /CUMM (130-400); RBC DISTRIBUTION WIDTH 13.4 % (11.5-14.5); RED BLOOD CELL CT 4.64 /CUMM (4.70-6.10); WHITE BLOOD CELL COUNT 7.7 /CUMM (4.8-10.8)
--- NOTE | 2018-01-08 10:47 | PN- Housestaff ---
Narendra Macedo 01/08/18 1046: Subjective Follow-up For: LLE osteomyelitis Subjective: Patient seen and examined at bedside. There was no overnight event. He is still n.p.o. and ready for OR procedure. He is complaining of mild nausea and loose tooth. He denies fever or chills, chest pain, shortness of breath, abdominal pain, diarrhea, loose motion, constipation, burning micturition. Review of Systems Constitutional: Reports: see HPI. Objective Last 24 Hrs of Vital Signs/I&O Vital Signs Date Time Temp Pulse Resp B/P B/P Pulse O2 O2 Flow FiO2 Mean Ox Delivery Rate 01/09 1529 98.3 113 22 152/98 93 Room Air 01/09 0954 93 166/98 01/09 0619 98.2 93 18 166/98 97 Room Air 01/08 2130 98.4 79 24 138/78 94 Intake & Output 01/09 1600 01/09 0800 01/09 0000 Intake Total 260 1030 Output Total Balance 260 1030 Intake, IV 260 130 Intake, Oral 0 900 Number 0 Bowel Movements Physical Exam General Appearance: Oriented X3, Cooperative, No Acute Distress Assessment/Plan Assessment: Assessment/problems list/plan: 60-year-old male with past medical history diabetes, hyperlipidemia, hypertension, presented to emergency department with a complaint of left great toe swelling redness, warmth its started after binge drink of alcohol last week and eaten lobster last week. On examination there was some white pus in big toe planar area and a small cut, dimisnis pulses, no pallor, no black discolouration. His lab was not significant except for uncontrolled blood sugar. Problems list; -Osteomyelitis/cellulitis of the left foot(big toe) -Peripheral vascular disease -Subacute fracture of left foot second digit -Peripheral neuropathy secondary to diabetes mellitus -Gout/Pogagra Plan: =Osteomyelitis/abscess left big toe plantar surface /cellulitis: Patient history clinical findings are more consistent with osteomyelitis/ cellulitis. MRI in favour of cellulitis and loculated abscess. Podiatric procedure done. Debridement and abscess drainage done. There was up to 50 mL pus collection, it was drained and sent for gram staining and culture. Podiatry suspecting osteomyelitis bone sample has taken and sent for biopsy, report showed gram-positive cocci growth. He might need PICC line for anticipated IV antibiotic for 4-6 weeks after discussion with podiatry and ID. Patient is waiting for anesthesia approval for second session of debridement in OR. = Peripheral vascular disease: There were diminished pulse in the left foot compared to right foot. We were suspecting peripheral vascular disease.The duplex Doppler ultrasound of the left leg is consistent with tibial and pedal vessel disease of the left leg based on the diminished velocities and monophasic waveforms. No focal stenotic lesion was identified in the femoral or popliteal arteries. Vascular surgery consultation placed. They will follow-up on patient.Greater sensitivity and specificity can be obtained with pre-and post exercise PVRs with RICARDA calculations. Also consider dedicated CTA for further anatomical detail. Vascular surgeon advised to continue antibiotic , leg elevation and consult with podiatry. stable from vascular = DVT: Venous Doppler done to rule out deep venous thrombosis. There is no DVT. = Gout: -MRI showed no effusion left great toe joint, gout is less likely. -He is allergic to on REBECCA inhibitors. Had a severe reaction, angioedema. -DVT prophylaxis Problem List: 1. Hyperglycemia 2. Cellulitis 3. Osteomyelitis Pain Ratin (0) Pain Location: no pain Pain Goal: Remain pain free Pain Plan: pain med Tomorrow's Labs & Rationales: n/a ZandraHeriberto 01/08/18 1058: Attending MD Review Statement Attending Statement Attending MD Statement: examined this patient, discuss w/resident/PA/HOSPICE MANAGER, agreed w/resident/PA/HOSPICE MANAGER, discussed with family, reviewed EMR data (avail), discussed with nursing, discussed with case mgmt, reviewed images, amended to note Attending Assessment/Plan: 62 o/m with pmh of diabetes mellitus on insulin at home comes with sudden onset of swelling of left great toe with reddish coloration and pain at his toe. Patient admitted here for pain control with cellulitis with plantar space abscess with Osteomyelitis s/p debridement and bone specimen grwoing gram positive cocci. Overnight no events. Vitals stable, afebrile. Plan for OR today, NPO. Continue abx, follow up blood cultures. ID f/u and follow cultures/podiatry. PICC line/duration of abx. Vascular surgery no acute intervention, follow up outpatient for peripheral vascular disease. USG arterial duplex with presence of peripheral vascualr disease. ASA/statin at discharge. DM controlled. RISS and titrate insulin as needed. Avoid alcohol which acts as trigger for acute gouty attacks. Endocronology follow up as outpatient. GI/dvt prophylaxis full code.
--- NOTE | 2018-01-08 12:20 | PN- Infect Dx ---
Subjective Subjective: Afebrile. He has minimal discomfort in the left foot. Objective Last 24 Hrs of Vital Signs/I&O Vital Signs Date Time Temp Pulse Resp B/P B/P Pulse O2 O2 Flow FiO2 Mean Ox Delivery Rate 01/08 1137 98.3 91 18 164/96 01/08 0601 98.3 74 20 130/80 96 01/07 2221 98.1 79 20 112/60 92 Room Air 01/07 1600 Room Air 01/07 1430 98.5 83 20 148/75 93 Room Air Intake & Output 01/08 1600 01/08 0800 08 0000 Intake Total 200 950 Output Total Balance 200 950 Intake, IV 200 100 Intake, Oral 0 850 Number 0 Bowel Movements Patient 279 lb Weight Physical Exam Other Physical Findings: He appears comfortable in no acute distress Extremities left foot dressing intact Results Last 24 Hours of Lab Results: Laboratory Tests 01/08 0741 Hematology CBC w Diff NO MAN DIFF REQ WBC (4.8 - 10.8 /CUMM) 7.7 RBC (4.70 - 6.10 /CUMM) 4.64 L Hgb (14.0 - 18.0 G/DL) 12.2 L Hct (42 - 52 %) 36.9 L MCV (80.0 - 94.0 FL) 79.4 L MCH (27.0 - 31.0 PG) 26.3 L MCHC (33.0 - 37.0 G/DL) 33.1 RDW (11.5 - 14.5 %) 13.4 Plt Count (130 - 400 /CUMM) 318 MPV (7.4 - 10.4 FL) 8.1 Gran % (42.2 - 75.2 %) 66.3 Lymphocytes % (20.5 - 51.1 %) 20.3 L Monocytes % (1.7 - 9.3 %) 10.6 H Eosinophils % (0 - 5 %) 1.9 Basophils % (0.0 - 2.0 %) 0.9 Absolute Granulocytes (1.4 - 6.5 /CUMM) 5.1 Absolute Lymphocytes (1.2 - 3.4 /CUMM) 1.6 Absolute Monocytes (0.10 - 0.60 /CUMM) 0.8 H Absolute Eosinophils (0.0 - 0.7 /CUMM) 0.1 Absolute Basophils (0.0 - 0.2 /CUMM) 0.1 Last 24 Hours of Bobby Results: Blood cultures 2 January 04 negative OR culture January 06 labeled left foot bone positive for gram-positive cocci Assessment/Plan ID Impression: Stable, with temperatures and white blood cell count remaining normal, status post excisional debridement, bone biopsy and drainage of a plantar space abscess 2 days ago for presumed osteomyelitis. His OR culture is growing gram-positive cocci, with final identification pending, and he can be continued on Unasyn pending final culture. He is scheduled for return to the OR later today. Suggestion: 1. Follow-up final OR culture 2. Await return to the OR later today (as discussed would send another culture from the OR) 3. Continue Unasyn pending above
[2018-01-08 14:42] VITALS: BP 150/88
[2018-01-08 21:30] VITALS: BP 138/78
[2018-01-09 06:19] VITALS: BP 166/98
--- NOTE | 2018-01-09 09:14 | PN- Housestaff ---
Sam Halli 01/09/18 0914: Subjective Follow-up For: OSteomyelitis Subjective: Patient was seen and examined at bedside. He was concerned that his blood pressure was high this morning. He is also concerned about his blood sugar which was 266 in the morning today. He says he would like an ammonia still operator to come and see him. I talked to his on the phone after she requested a doctor call her. She wants a brain scan to be done for the patient as she thinks " he has not been himself lately". She says she has noticed a significant change in his behaviour since the past few days. She does endorse that she thought it was the worst "right before they started him on antibiotics". The patient insists a doctor be called for his loose tooth or he would have someone pull it out for him. He says he has been trying to pull it out with his tongue since yesterday. Review of Systems Constitutional: Reports: see HPI. Objective Last 24 Hrs of Vital Signs/I&O Vital Signs Date Time Temp Pulse Resp B/P B/P Pulse O2 O2 Flow FiO2 Mean Ox Delivery Rate 01/09 0954 93 166/98 01/09 0619 98.2 93 18 166/98 97 Room Air 01/08 2130 98.4 79 24 138/78 94 01/08 1442 98.1 96 18 150/88 96 Intake & Output 01/09 1600 01/09 0800 01/09 0000 Intake Total 260 1030 Output Total Balance 260 1030 Intake, IV 260 130 Intake, Oral 0 900 Number 0 Bowel Movements Physical Exam General Appearance: Alert, Oriented X3, Cooperative, No Acute Distress Neck: Supple Cardiovascular: Regular Rate, Normal S1, Normal S2, No Murmurs Lungs: Clear to Auscultation Extremities: swelling in the left toe with some erythema Assessment/Plan Assessment: Mr Foster is a 62yo M w PMH IDDM, HTN, HLD, alcoholism with a 3 day history of L great toe swelling, redness, warmth, admitted for gout vs cellulitis vs osteomyelitis. Without leukocytosis or fevers, however has significant neuropathy and is unable to recognize if pain is worsening or not given that he has a broken 2nd digit on foot xray. Problem list/Assessment/Hospital Course: #L foot 2nd digit subacute fracture #R/o diabetic foot ulcer/Gout #Peripheral neuropathy 2/2 diabetes #PMH of IDDM, HTN, HLD 1. L Great toe warmth/swelling/tenderness -Received one dose of ceftriaxone in ED. No fluctuant areas. -Procedure deferred because anaethesia denied clearance because of two loose teeth. We will try to schedule a dentist consult. -Blood culture showed Gram positive Staph aureus. The patinet is curently on Unasyn. 2. IDDM -Endo consult appreciated. Patient would follow up with outpatient. -ISS, with accuchek #Alcoholism -Pt relapsed recently, was evasive regarding why. No withdrawal symptoms noticed. DVT PPx - no lovenox pending podiatry procedure IV Access CC2 diet Full Code Problem List: 1. Osteomyelitis 2. Gout 3. Loose, teeth 4. Peripheral vascular disease Pain Ratin Pain Location: na Pain Goal: Remain pain free Pain Plan: na Tomorrow's Labs & Rationales: cbc and bep Toya JUARES,Amir 01/09/18 1126: Attending MD Review Statement Attending Statement Attending MD Statement: examined this patient, discuss w/resident/PA/CONSULTING NURSE, agreed w/resident/PA/CONSULTING NURSE, reviewed EMR data (avail), discussed with nursing Attending Assessment/Plan: Pt was seen and evaluated. Chart reviewed. No overnight issues. Denies f/c/n/ v. Ambulating OK. --awaiting dental merry --rest of the plan as per resident's note --rest of the plan as per resident's note
[2018-01-09 09:54] LABS: ABSOLUTE BASOPHIL COUNT 0 /CUMM (0.0-0.2); ABSOLUTE EOSINOPHIL COUNT 0.1 /CUMM (0.0-0.7); ABSOLUTE LYMPH COUNT 1.4 /CUMM (1.2-3.4); ABSOLUTE MONOCYTE COUNT 0.7 /CUMM (0.10-0.60); BASOPHIL % 0.5 % (0.0-2.0); EOSINOPHIL % 1.4 % (0-5); GRANULOCYTE % 69.5 % (42.2-75.2); HEMATOCRIT 38.5 % (42-52); MEAN CORPUSCULAR HGB 26.4 PG (27.0-31.0); MEAN CORPUSCULAR HGB CONC 33.4 G/DL (33.0-37.0); MEAN CORPUSCULAR VOLUME 78.8 FL (80.0-94.0); MEAN PLATELET VOLUME 8.1 FL (7.4-10.4); PLATELET COUNT 340 /CUMM (130-400); RBC DISTRIBUTION WIDTH 13.3 % (11.5-14.5); RED BLOOD CELL CT 4.89 /CUMM (4.70-6.10); WHITE BLOOD CELL COUNT 7.2 /CUMM (4.8-10.8)
[2018-01-09 15:29] VITALS: BP 152/98
[2018-01-09 22:17] VITALS: BP 148/84
[2018-01-10 07:26] VITALS: BP 166/88
[2018-01-10 08:35] LABS: ABSOLUTE BASOPHIL COUNT 0 /CUMM (0.0-0.2); ABSOLUTE EOSINOPHIL COUNT 0.1 /CUMM (0.0-0.7); ABSOLUTE LYMPH COUNT 1.3 /CUMM (1.2-3.4); ABSOLUTE MONOCYTE COUNT 0.7 /CUMM (0.10-0.60); BASOPHIL % 0.4 % (0.0-2.0); EOSINOPHIL % 1.5 % (0-5); GRANULOCYTE % 73.5 % (42.2-75.2); HEMATOCRIT 39.3 % (42-52); MEAN CORPUSCULAR HGB 26.3 PG (27.0-31.0); MEAN CORPUSCULAR HGB CONC 33.4 G/DL (33.0-37.0); MEAN CORPUSCULAR VOLUME 78.8 FL (80.0-94.0); MEAN PLATELET VOLUME 7.9 FL (7.4-10.4); PLATELET COUNT 376 /CUMM (130-400); RBC DISTRIBUTION WIDTH 13.1 % (11.5-14.5); RED BLOOD CELL CT 4.98 /CUMM (4.70-6.10); WHITE BLOOD CELL COUNT 8.2 /CUMM (4.8-10.8)
--- NOTE | 2018-01-10 08:55 | PN- Infect Dx ---
Subjective Subjective: Afebrile. He notes mild discomfort in the left foot. He complains of a very loose tooth, which apparently resulted in cancellation of his podiatric surgery 2 days ago. Objective Last 24 Hrs of Vital Signs/I&O Vital Signs Date Time Temp Pulse Resp B/P B/P Pulse O2 O2 Flow FiO2 Mean Ox Delivery Rate 01/10 0726 98.2 75 20 166/88 95 01/09 2217 98.2 87 20 148/84 93 Room Air 01/09 1529 98.3 113 22 152/98 93 Room Air 01/09 0954 93 166/98 Intake & Output 01/10 1600 01/10 0800 01/10 0000 Intake Total 540 370 Output Total Balance 540 370 Intake, IV 300 130 Intake, Oral 240 240 Physical Exam Other Physical Findings: He appears comfortable in no acute distress HEENT extremely loose tooth in the left mandibular area Extremities left foot dressing intact Results Last 24 Hours of Lab Results: Laboratory Tests 01/10 0755 Hematology CBC w Diff Pending WBC Pending RBC Pending Hgb Pending Hct Pending MCV Pending MCH Pending MCHC Pending RDW Pending Plt Count Pending MPV Pending Last 24 Hours of Bobby Results: OR culture January 06 labeled left foot bone positive for Staph simulans sensitive to Oxacillin Assessment/Plan ID Impression: Stable, with temperatures and white blood cell count remaining normal, status post excisional debridement, bone biopsy and drainage of a plantar space abscess 4 days ago for presumed osteomyelitis, with his OR culture positive for Staph simulans. The significance of this organism is unclear as it is a coag negative Staph, but it has been associated with infection similar to those caused by Staph aureus; therefore, as it is the only organism isolated, feel that it may be a true pathogen and would plan on treating it as such. His left foot surgery was apparently canceled secondary to his loose tooth and is tentatively rescheduled for the a.m. Suggestion: 1. Await Dental evaluation 2. Await return to the OR for further debridement per Podiatry 3. Would pursue placement of a PICC in the a.m. 4. Continue Unasyn
--- NOTE | 2018-01-10 09:02 | PN- Housestaff ---
Sam Halli 01/10/18 0902: Subjective Follow-up For: osteomyelitis Subjective: Patient was seen and examined at bedside. He says he knocked out one of his teeth on his own. He denies pain, fever, chills, nausea, vomiting, chest pain, shortness of breath. Review of Systems Constitutional: Reports: see HPI. Objective Last 24 Hrs of Vital Signs/I&O Vital Signs Date Time Temp Pulse Resp B/P B/P Pulse O2 O2 Flow FiO2 Mean Ox Delivery Rate 01/10 1451 98.0 85 20 150/80 93 Room Air 01/10 0942 75 166/88 01/10 0726 98.2 75 20 166/88 95 / 2217 98.2 87 20 148/84 93 Room Air Intake & Output 01/10 1600 01/10 0800 01/10 0000 Intake Total 800 540 370 Output Total Balance 800 540 370 Intake, IV 300 130 Intake, Oral 800 240 240 Physical Exam General Appearance: Alert, Oriented X3, Cooperative, No Acute Distress Neck: Supple Cardiovascular: Regular Rate, Normal S1, Normal S2 Lungs: Clear to Auscultation Abdomen: Normal Bowel Sounds, Soft, No Tenderness Assessment/Plan Assessment: Mr Foster is a 62yo M w PMH IDDM, HTN, HLD, alcoholism with a 3 day history of L great toe swelling, redness, warmth, admitted for gout vs cellulitis vs osteomyelitis. Without leukocytosis or fevers, however has significant neuropathy and is unable to recognize if pain is worsening or not given that he has a broken 2nd digit on foot xray. Problem list/Assessment/Hospital Course: #L foot 2nd digit subacute fracture #R/o diabetic foot ulcer/Gout #Peripheral neuropathy 2/2 diabetes #PMH of IDDM, HTN, HLD 1. L Great toe warmth/swelling/tenderness -Received one dose of ceftriaxone in ED. No fluctuant areas. -Procedure deferred because anaethesia denied clearance because of two loose teeth. We will try to schedule a dentist consult. -Blood culture showed Gram positive Staph aureus. The patinet is curently on Unasyn. 2. IDDM -Endo consult appreciated. Patient would follow up with outpatient. -ISS, with accuchek #Alcoholism -Pt relapsed recently, was evasive regarding why. No withdrawal symptoms noticed. DVT PPx - no lovenox pending podiatry procedure IV Access CC2 diet Problem List: 1. Peripheral vascular disease 2. Loose, teeth 3. Gout 4. Osteomyelitis Pain Ratin Pain Location: na Pain Goal: Remain pain free Pain Plan: na Tomorrow's Labs & Rationales: cbc and bep Toya JUARES,Amir 01/10/18 1239: Attending MD Review Statement Attending Statement Attending MD Statement: examined this patient, discuss w/resident/PA/EDUCATION TECHNICIAN, agreed w/resident/PA/EDUCATION TECHNICIAN, reviewed EMR data (avail), discussed with nursing Attending Assessment/Plan: Pt was seen an evaluated. Chart reviewed. 1 tooth came out. --appreciate ID eval, cont abx --rest of the plan as per resident's note
[2018-01-10 14:51] VITALS: BP 150/80
[2018-01-10 22:19] VITALS: BP 144/80
[2018-01-11 06:15] VITALS: BP 164/92
--- NOTE | 2018-01-11 08:35 | PN- Housestaff ---
Narendra Macedo 01/11/18 0832: Subjective Follow-up For: Left lower extremity osteomyelitis Complaints: no complaints Subjective: Patient seen and examined at bedside. He removed 1 tooth. He is concerned about his other loose tooth. He is worried about procedure that will it be possible today or not. He is NPO. He denies chest pain, palpitation, cough, loose motion, burning micturition, fever, chills. Review of Systems Constitutional: Reports: see HPI. Objective Last 24 Hrs of Vital Signs/I&O Vital Signs Date Time Temp Pulse Resp B/P B/P Pulse O2 O2 Flow FiO2 Mean Ox Delivery Rate 01/11 211 98.0 85 18 140/84 93 01/11 1600 97.5 86 18 130/80 96 Room Air 01/11 0914 88 158/78 01/11 0800 Room Air 01/11 0615 97.9 85 18 164/92 95 Room Air 01/10 2219 98.2 78 18 144/80 94 Room Air Intake & Output 01/11 1600 01/11 0800 01/11 0000 Intake Total 525 300 360 Output Total Balance 525 300 360 Intake, IV 525 300 120 Intake, Oral 240 Number 1 Bowel Movements Physical Exam General Appearance: Alert, Oriented X3, Cooperative, No Acute Distress Assessment/Plan Assessment: Assessment/problems list/plan: 60-year-old male with past medical history diabetes, hyperlipidemia, hypertension, presented to emergency department with a complaint of left great toe swelling redness, warmth its started after binge drink of alcohol last week and eaten lobster last week. On examination there was some white pus in big toe planar area and a small cut, dimisnis pulses, no pallor, no black discolouration. His lab was not significant except for uncontrolled blood sugar. Problems list; -Osteomyelitis -Peripheral vascular disease -Subacute fracture of left foot second digit -Peripheral neuropathy secondary to diabetes mellitus Plan: =Osteomyelitis: Patient history clinical findings are more consistent with osteomyelitis. Podiatric procedure done. Debridement and abscess drainage done. Podiatry suspecting osteomyelitis bone sample has taken and sent for biopsy, report showed gram-positive cocci growth. He need PICC line for anticipated IV antibiotic for 4-6 weeks after discussion with podiatry and ID. Patient sacralization of debridement will be 1 PM today. After that PICC line will be passed for IV antibiotic. = Peripheral vascular disease: There were diminished pulse in the left foot compared to right foot. We were suspecting peripheral vascular disease.The duplex Doppler ultrasound of the left leg is consistent with tibial and pedal vessel disease of the left leg based on the diminished velocities and monophasic waveforms. No focal stenotic lesion was identified in the femoral or popliteal arteries. Vascular surgery consultation placed. They will follow-up on patient. Greater sensitivity and specificity can be obtained with pre-and post exercise PVRs with RICARDA calculations. Also consider dedicated CTA for further anatomical detail. Vascular surgeon advised to continue antibiotic , leg elevation and consult with podiatry. stable from vascular = DVT: Venous Doppler done to rule out deep venous thrombosis. There is no DVT. = Gout: -MRI showed no effusion left great toe joint, gout is less likely. -He is allergic to on REBECCA inhibitors. Had a severe reaction, angioedema. -Anticipated discharge tomorrow. -DVT prophylaxis Problem List: 1. Osteomyelitis Pain Ratin Pain Location: no pain Pain Goal: Remain pain free Pain Plan: n/a Tomorrow's Labs & Rationales: n/a Manohar Jason 01/11/18 1539: Attending MD Review Statement Attending Statement Attending MD Statement: examined this patient, discuss w/resident/PA/YARD CONDUCTOR, agreed w/resident/PA/YARD CONDUCTOR, reviewed EMR data (avail), discussed with nursing, discussed with case mgmt Attending Assessment/Plan: Pt going to OR for revision surgery today. will be done under ankle block. d/w pt the care plan. will f/u on the OR report after surgery.
[2018-01-11 10:58] LABS: ABSOLUTE BASOPHIL COUNT 0 /CUMM (0.0-0.2); ABSOLUTE EOSINOPHIL COUNT 0.1 /CUMM (0.0-0.7); ABSOLUTE GRANULOCYTE CT 5.2 /CUMM (1.4-6.5); ABSOLUTE LYMPH COUNT 1.3 /CUMM (1.2-3.4); ABSOLUTE MONOCYTE COUNT 0.5 /CUMM (0.10-0.60); BASOPHIL % 0.5 % (0.0-2.0); EOSINOPHIL % 1.6 % (0-5); GRANULOCYTE % 72.5 % (42.2-75.2); MEAN CORPUSCULAR HGB 26.2 PG (27.0-31.0); MEAN CORPUSCULAR VOLUME 79.2 FL (80.0-94.0); MEAN PLATELET VOLUME 8.2 FL (7.4-10.4); PLATELET COUNT 353 /CUMM (130-400); RBC DISTRIBUTION WIDTH 13.2 % (11.5-14.5); RED BLOOD CELL CT 4.92 /CUMM (4.70-6.10); WHITE BLOOD CELL COUNT 7.2 /CUMM (4.8-10.8)
[2018-01-11 16:00] VITALS: BP 130/80
--- NOTE | 2018-01-11 16:56 | PN- Infect Dx ---
Subjective Subjective: Afebrile without complaints. Objective Last 24 Hrs of Vital Signs/I&O Vital Signs Date Time Temp Pulse Resp B/P B/P Pulse O2 O2 Flow FiO2 Mean Ox Delivery Rate 01/11 0914 88 158/78 01/11 0800 Room Air 01/11 0615 97.9 85 18 164/92 95 Room Air 01/10 2219 98.2 78 18 144/80 94 Room Air Intake & Output 01/11 1600 01/11 0800 01/11 0000 Intake Total 525 300 360 Output Total Balance 525 300 360 Intake, IV 525 300 120 Intake, Oral 240 Number 1 Bowel Movements Physical Exam Other Physical Findings: He appears comfortable in no acute distress Extremities left foot dressing intact Results Last 24 Hours of Lab Results: Laboratory Tests 01/11 0753 Hematology CBC w Diff NO MAN DIFF REQ WBC (4.8 - 10.8 /CUMM) 7.2 RBC (4.70 - 6.10 /CUMM) 4.92 Hgb (14.0 - 18.0 G/DL) 12.9 L Hct (42 - 52 %) 39.0 L MCV (80.0 - 94.0 FL) 79.2 L MCH (27.0 - 31.0 PG) 26.2 L MCHC (33.0 - 37.0 G/DL) 33.0 RDW (11.5 - 14.5 %) 13.2 Plt Count (130 - 400 /CUMM) 353 MPV (7.4 - 10.4 FL) 8.2 Gran % (42.2 - 75.2 %) 72.5 Lymphocytes % (20.5 - 51.1 %) 18.2 L Monocytes % (1.7 - 9.3 %) 7.2 Eosinophils % (0 - 5 %) 1.6 Basophils % (0.0 - 2.0 %) 0.5 Absolute Granulocytes (1.4 - 6.5 /CUMM) 5.2 Absolute Lymphocytes (1.2 - 3.4 /CUMM) 1.3 Absolute Monocytes (0.10 - 0.60 /CUMM) 0.5 Absolute Eosinophils (0.0 - 0.7 /CUMM) 0.1 Absolute Basophils (0.0 - 0.2 /CUMM) 0 Last 24 Hours of Bobby Results: No new cultures Assessment/Plan ID Impression: Stable, with temperatures and white blood cell count remaining normal, status post further debridement of his left foot earlier today for 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 Have discussed with Podiatry, who feels that he will require a 4 week course of IV antibiotics for residual osteomyelitis, and he is awaiting placement of a PICC in the a.m. Suggestion: 1. Await placement of the PICC in the a.m. 2. Would obtain a postop baseline ESR and x-ray of the left foot 3. Discontinue Unasyn 4. Begin Oxacillin 2 g IV every 4 hours to plan on a 4 week course of antibiotics from today (until February 08)
[2018-01-11 21:12] VITALS: BP 140/84
[2018-01-12 06:20] VITALS: BP 134/90
--- NOTE | 2018-01-12 07:18 | Operative Report ---
Operative/Inv Procedure Report Surgery Date: 01/11/18 Name of Procedure: 1 open incision and drainage deep to the deep fascia with exposure of the extensor and flexor tendon and tendon sheath multiple sites left foot 2 delayed primary closure of open surgical wound left foot 3 intraoperative administration of medical block anesthesia 4 excisional debridement Pre-Operative Diagnosis: 1 open, necrotic wound left 2 osteomyelitis left foot 3 diabetic peripheral neuropathy Post-Operative Diagnosis: The same Estimated Blood Loss: less than 50ml Surgeon/Grails Web Application Developer: REBECA BRYANT DPM Anesthesia: moderate sedation, block Operative/Procedure Note Note: After obtaining informed consent the patient was brought to the operating room and placed on the operating table in supine position. The patient was then securely fastened to the operating table utilizing a safety belt. After menstruation of IV sedation, 10 cc of 0.5% Marcaine plain was infiltrated about the patient's left ankle. The left foot and ankle were then scrubbed, prepped and draped in the usual aseptic manner. Attention was directed to the distal medial foot, where a large full-thickness necrotic was identified. A 15 blade was utilized sharply advise skin margins. The dissection was then carried down deep to the deep fascia with exposure of the extensor and flexor tendon and tendon sheath multiple sites, both proximally and distally. All necrotic, nonviable infected tissue was sharply evacuated from the movement. The open wound was then irrigated with 3 L of normal sterile saline infused 50,000 units of bacitracin. Following this, the foot was redraped and the surgeons top gloves were exchanged. Any bleeding vessels identified were cauterized or ligated as encountered. A dorsal and plantar flap was then developed with undermining, mobilization and advancement of adjacent tissue centrally. The deep center flap was held centrally with 3-0 Vicryl. The skin edges reapproximated 3-0 nylon. The incision was then reinforced with skin evelia. The incision site was dressed with Xeroform, 4 x 4's, Kerlix and an Vidal wrap. The patient was noted to tolerate both procedure and anesthesia well and the patient was transported from the operating room to recovery with vital signs stable vascular status intact to both the dorsal and plantar flaps.
[2018-01-12 08:37] LABS: ABSOLUTE BASOPHIL COUNT 0 /CUMM (0.0-0.2); ABSOLUTE EOSINOPHIL COUNT 0.1 /CUMM (0.0-0.7); ABSOLUTE GRANULOCYTE CT 6.8 /CUMM (1.4-6.5); ABSOLUTE LYMPH COUNT 1.1 /CUMM (1.2-3.4); ABSOLUTE MONOCYTE COUNT 0.7 /CUMM (0.10-0.60); BASOPHIL % 0.5 % (0.0-2.0); EOSINOPHIL % 1.1 % (0-5); HEMATOCRIT 42.3 % (42-52); MEAN CORPUSCULAR HGB 26.5 PG (27.0-31.0); MEAN CORPUSCULAR HGB CONC 33.4 G/DL (33.0-37.0); MEAN CORPUSCULAR VOLUME 79.3 FL (80.0-94.0); MEAN PLATELET VOLUME 8.3 FL (7.4-10.4); RBC DISTRIBUTION WIDTH 13.6 % (11.5-14.5); RED BLOOD CELL CT 5.34 /CUMM (4.70-6.10); WHITE BLOOD CELL COUNT 8.8 /CUMM (4.8-10.8)
[2018-01-12 09:20] LABS: PLATELET COUNT 301 /CUMM (130-400)
--- NOTE | 2018-01-12 11:59 | PN- Housestaff ---
Narendra Macedo 01/12/18 1157: Subjective Follow-up For: Left lower extremity cellulitis Subjective: Patient seen and examined at bedside. He came upstairs from OR. He has been no active issue. He is ready to go home but he is concerned about some financial issues that his insurance co-pay for his medication. He denies fever, chills, chest pain, shortness of breath, abdominal pain, diarrhea, constipation, burning micturition. Review of Systems Constitutional: Reports: see HPI. Objective Last 24 Hrs of Vital Signs/I&O Vital Signs Date Time Temp Pulse Resp B/P B/P Pulse O2 O2 Flow FiO2 Mean Ox Delivery Rate 01/12 1431 99.2 79 20 130/90 95 Room Air 01/12 0957 74 150/78 01/12 0800 Room Air 01/12 0620 97.8 76 20 134/90 94 01/11 2112 98.0 85 18 140/84 93 01/11 1600 97.5 86 18 130/80 96 Room Air Intake & Output 01/12 1600 01/12 0800 01/12 0000 Intake Total 248 342 6494 Output Total Balance 571 654 2435 Intake, IV 180 400 600 Intake, Oral 480 240 400 Physical Exam General Appearance: Alert, Oriented X3, Cooperative, No Acute Distress Assessment/Plan Assessment: 60-year-old male with past medical history diabetes, hyperlipidemia, hypertension, presented to emergency department with a complaint of left great toe swelling redness, warmth its started after binge drink of alcohol last week and eaten lobster last week. On examination there was some white pus in big toe planar area and a small cut, dimisnis pulses, no pallor, no black discolouration. His lab was not significant except for uncontrolled blood sugar. Problems list; -Osteomyelitis -Peripheral vascular disease -Subacute fracture of left foot second digit -Peripheral neuropathy secondary to diabetes mellitus Plan: =Osteomyelitis: Patient history clinical findings are more consistent with osteomyelitis. Podiatric procedure done. Debridement and abscess drainage done. Podiatry suspecting osteomyelitis bone sample has taken and sent for biopsy, report showed gram-positive cocci growth. His PICC line placed today. See consideration of I&D done today, wound is closed now. We will discharge him tomorrow for IV 2 g oxacillin every 6 hour for 4 weeks. = Peripheral vascular disease: There were diminished pulse in the left foot compared to right foot. We were suspecting peripheral vascular disease.The duplex Doppler ultrasound of the left leg is consistent with tibial and pedal vessel disease of the left leg based on the diminished velocities and monophasic waveforms. No focal stenotic lesion was identified in the femoral or popliteal arteries. Vascular surgery consultation placed. They will follow-up on patient. Greater sensitivity and specificity can be obtained with pre-and post exercise PVRs with RICARDA calculations. Also consider dedicated CTA for further anatomical detail. Vascular surgeon advised to continue antibiotic , leg elevation and consult with podiatry. stable from vascular = DVT: Venous Doppler done to rule out deep venous thrombosis. There is no DVT. = Gout: -MRI showed no effusion left great toe joint, gout is less likely. -He is allergic to on REBECCA inhibitors. Had a severe reaction, angioedema. -Anticipated discharge tomorrow. -DVT prophylaxis Problem List: 1. Osteomyelitis Pain Ratin Pain Location: N/A Pain Goal: Remain pain free Pain Plan: N/A Tomorrow's Labs & Rationales: N/A Manohar Jason 01/12/18 1551: Attending MD Review Statement Attending Statement Attending MD Statement: examined this patient, discuss w/resident/PA/PETROLEUM PLANT OPERATOR, agreed w/resident/PA/PETROLEUM PLANT OPERATOR, reviewed EMR data (avail), discussed with nursing, discussed with case mgmt Attending Assessment/Plan: 62-year-old man with a history of hypertension, hyperlipidemia and diabetes, admitted on January 04 with a 3 day history of pain, swelling and erythema of the left great toe, extending to the dorsum of the foot. Osteomyleitis left foot- Pt underwent first surgery on 01/06 and second one on . Pt got PICC line today and plan is to cont on oxacillin till 02/08/18. Plan dc after continuous pillowcase cutter arranges for outpt iv abx . if pt is going to be non weight bearing then the plan will be to look for STR.
--- NOTE | 2018-01-12 12:13 | RADIOLOGY REPORT ---
EXAMINATION: XR PORTABLE CHEST CLINICAL INFORMATION: PICC line placement. COMPARISON: Chest x-ray dated 01/04/2018. TECHNIQUE: Portable AP semierect view of the chest was obtained. FINDINGS: A right subclavian PICC line is in place with tip in the deep SVC. The cardiomediastinal silhouette is within normal limits in size. Lungs bilaterally are symmetrically expanded and clear. No focal consolidation, effusion or pneumothorax is seen. Bony structures are unremarkable. IMPRESSION: Right subclavian PICC line tip in deep SVC. No pneumothorax.
[2018-01-12 14:31] VITALS: BP 130/90
[2018-01-12 21:44] VITALS: BP 148/80
[2018-01-13 05:40] VITALS: BP 148/80
--- NOTE | 2018-01-13 08:13 | PN- Housestaff ---
Narendra Macedo 01/13/18 0813: Subjective Follow-up For: LLE osteomyelitis Subjective: Patient seen and examined at bedside. He came upstairs from OR. He has been no active issue. He is ready to go home but he is concerned about some financial issues that his insurance co-pay for his medication. He denies fever, chills, chest pain, shortness of breath, abdominal pain, diarrhea, constipation, burning micturition. Review of Systems Constitutional: Reports: see HPI. Objective Last 24 Hrs of Vital Signs/I&O Vital Signs Date Time Temp Pulse Resp B/P B/P Pulse O2 O2 Flow FiO2 Mean Ox Delivery Rate 01/13 1440 97.8 96 20 148/90 98 Room Air 01/13 1101 Room Air 01/13 0811 80 158/90 01/13 0540 97.4 79 20 148/80 97 Room Air 01/12 2144 98.0 76 20 148/80 94 Room Air Intake & Output 01/13 1600 01/13 0800 01/13 0000 Intake Total 580 200 910 Output Total Balance 580 200 910 Intake, IV 100 250 Intake, Oral 480 200 660 Physical Exam General Appearance: Alert, Oriented X3, Cooperative Assessment/Plan Assessment: 60-year-old male with past medical history diabetes, hyperlipidemia, hypertension, presented to emergency department with a complaint of left great toe swelling redness, warmth its started after binge drink of alcohol last week and eaten lobster last week. On examination there was some white pus in big toe planar area and a small cut, dimisnis pulses, no pallor, no black discolouration. His lab was not significant except for uncontrolled blood sugar. Problems list; -Osteomyelitis -Peripheral vascular disease -Subacute fracture of left foot second digit -Peripheral neuropathy secondary to diabetes mellitus Plan: =Osteomyelitis: Patient history clinical findings are more consistent with osteomyelitis. Podiatric procedure done. Debridement and abscess drainage done. Podiatry suspecting osteomyelitis bone sample has taken and sent for biopsy, report showed gram-positive cocci growth. His PICC line placed today. See consideration of I&D done today, wound is closed now. We will discharge him tomorrow for IV 2 g oxacillin every 6 hour for 4 weeks. He is going to short- term rehab. = Peripheral vascular disease: There were diminished pulse in the left foot compared to right foot. We were suspecting peripheral vascular disease.The duplex Doppler ultrasound of the left leg is consistent with tibial and pedal vessel disease of the left leg based on the diminished velocities and monophasic waveforms. No focal stenotic lesion was identified in the femoral or popliteal arteries. Vascular surgery consultation placed. They will follow-up on patient. Greater sensitivity and specificity can be obtained with pre-and post exercise PVRs with RICARDA calculations. Also consider dedicated CTA for further anatomical detail. Vascular surgeon advised to continue antibiotic , leg elevation and consult with podiatry. stable from vascular = DVT: Venous Doppler done to rule out deep venous thrombosis. There is no DVT. = Gout: = Plan to discharge to short-term rehab =MRI showed no effusion left great toe joint, gout is less likely. -He is allergic to on REBECCA inhibitors. Had a severe reaction, angioedema. -Anticipated discharge tomorrow. -DVT prophylaxis Problem List: 1. Osteomyelitis Pain Ratin Pain Location: No pain Pain Goal: Remain pain free Pain Plan: No pain Tomorrow's Labs & Rationales: N/A Heriberto De Paz 01/13/18 1230: Attending MD Review Statement Attending Statement Attending MD Statement: examined this patient, discuss w/resident/PA/RADIO BOARD OPERATOR, agreed w/resident/PA/RADIO BOARD OPERATOR, discussed with family, reviewed EMR data (avail), discussed with nursing, discussed with case mgmt, reviewed images, amended to note Attending Assessment/Plan: 62 o/m with pmh of diabetes mellitus on insulin at home comes with sudden onset of swelling of left great toe with reddish coloration and pain at his toe. Patient admitted here for pain control with cellulitis with plantar space abscess with Osteomyelitis s/p debridement and bone specimen grwoing gram positive cocci. Overnight no events. Vitals stable, afebrile. Continue abx, ID f/u and follow cultures/podiatry. PICC line/duration of abx. Vascular surgery no acute intervention, follow up outpatient for peripheral vascular disease. USG arterial duplex with presence of peripheral vascualr disease. ASA/statin at discharge. DM controlled. RISS and titrate insulin as needed. Avoid alcohol which acts as trigger for acute gouty attacks. Endocronology follow up as outpatient. GI/dvt prophylaxis full code. Anticipate discharge plannign with home arrangements for IV antibiotics, case management on board.
--- NOTE | 2018-01-13 10:54 | PN- Infect Dx ---
Subjective Subjective: Afebrile without complaints. He is anxious about the logistics of the home IV antibiotics. Objective Last 24 Hrs of Vital Signs/I&O Vital Signs Date Time Temp Pulse Resp B/P B/P Pulse O2 O2 Flow FiO2 Mean Ox Delivery Rate 01/13 0811 80 158/90 01/13 0540 97.4 79 20 148/80 97 Room Air 01/12 2144 98.0 76 20 148/80 94 Room Air 01/12 1431 99.2 79 20 130/90 95 Room Air Intake & Output 01/13 1600 01/13 0800 01/13 0000 Intake Total 200 910 Output Total Balance 200 910 Intake, IV 250 Intake, Oral 200 660 Physical Exam Other Physical Findings: He appears comfortable in no acute distress Extremities left foot dressing intact; PICC in place in the right upper extremity Results Last 24 Hours of Lab Results: Laboratory Tests 01/12 0730 Chemistry Sodium (137 - 145 mmol/L) 135 L Potassium (3.5 - 5.1 mmol/L) 4.1 Chloride (98 - 107 mmol/L) 101 Carbon Dioxide (22 - 30 mmol/L) 25 Anion Gap (5 - 16) 9 BUN (9 - 20 mg/dL) 11 Creatinine (0.7 - 1.2 mg/dL) 0.7 Estimated GFR (>60 ml/min) > 60 BUN/Creatinine Ratio (7 - 25 %) 15.7 Hematology CBC w Diff NO MAN DIFF REQ WBC (4.8 - 10.8 /CUMM) 8.8 RBC (4.70 - 6.10 /CUMM) 5.34 Hgb (14.0 - 18.0 G/DL) 14.1 Hct (42 - 52 %) 42.3 MCV (80.0 - 94.0 FL) 79.3 L MCH (27.0 - 31.0 PG) 26.5 L MCHC (33.0 - 37.0 G/DL) 33.4 RDW (11.5 - 14.5 %) 13.6 Plt Count (130 - 400 /CUMM) 301 MPV (7.4 - 10.4 FL) 8.3 Gran % (42.2 - 75.2 %) 77.0 H Lymphocytes % (20.5 - 51.1 %) 13.0 L Monocytes % (1.7 - 9.3 %) 8.4 Eosinophils % (0 - 5 %) 1.1 Basophils % (0.0 - 2.0 %) 0.5 Absolute Granulocytes (1.4 - 6.5 /CUMM) 6.8 H Absolute Lymphocytes (1.2 - 3.4 /CUMM) 1.1 L Absolute Monocytes (0.10 - 0.60 /CUMM) 0.7 H Absolute Eosinophils (0.0 - 0.7 /CUMM) 0.1 Absolute Basophils (0.0 - 0.2 /CUMM) 0 ESR Westergren (0 - 10 MM) 54 H Last 24 Hours of Bobby Results: No recent cultures Assessment/Plan ID Impression: Stable, with temperatures and white blood cell count remaining normal, status post further debridement of his left foot, with wound closure, 2 days ago for 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 He remains on Unasyn for residual osteomyelitis, and this will need to be continued for 4 weeks from his most recent debridement. Suggestion: 1. Obtain a postop baseline x-ray of the left foot 2. Continue Oxacillin to complete a four-week course of antibiotics from his most recent debridement (until February 08) 3. Weekly CBC, ESR and CMP while on Oxacillin
[2018-01-13 14:40] VITALS: BP 148/90
[2018-01-13] MEDS ORDERED: OXACILLIN2 GM/50 M1 IV (15:33)
[2018-01-13] MEDS ORDERED: PRAVASTATIN SOD40 M2 PO (15:36)
--- NOTE | 2018-01-13 15:42 | Patient Discharge Instructions ---
Discharge Instructions General Discharge Information You were seen/treated for: OSTEOMYELITIS Special Instructions: Please follow up with PCP within 1 week of discharge Please f/u with Dr. Yu within 1 week Please f/u with Vascular surgery within 1 week after discharge Acute Coronary Syndrome Inclusion Criteria At DC or during hospital stay patient has or had the following: ACS DIAGNOSIS No Discharge Core Measures Meds if any: Prescribed or Continued at Discharge Meds if any: NOT Prescribed or Continued at Discharge Congestive Heart Failure Inclusion Criteria At DC or during hospital stay patient has or had the following: CHF DIAGNOSIS No Discharge Core Measures Meds if any: Prescribed or Continued at Discharge Meds if any: NOT Prescribed or Continued at Discharge Cerebrovascular accident Inclusion Criteria At DC or during hospital stay patient has or had the following: CVA/TIA Diagnosis No Discharge Core Measures Meds if any: Prescribed or Continued at Discharge Meds if any: NOT Prescribed or Continued at Discharge Venous thromboembolism Inclusion Criteria VTE Diagnosis No VTE Type NONE VTE Confirmed by (Test) NONE Discharge Core Measures - Per Current guidelines, there needs to be overlap - treatment for the first 5 days of Warfarin therapy. - If discharged on Warfarin prior to 5 days of - overlap therapy, the patient will need to be - assessed for post discharge needs including - *Post discharge parental anticoagulation - *Warfarin and/or parental anticoagulation education - *Follow up date to check INR post discharge At least 5 days overlap therapy as Inpatient No Meds if any: Prescribed or Continued at Discharge Note: Overlap Therapy is Warfarin and Anticoagulant Meds if any: NOT Prescribed or Continued at Discharge
--- NOTE | 2018-01-13 16:08 | Discharge Summary ---
Visit Information Visit Dates Admission Date: 01/04/18 Discharge Date: 01/14/18. Hospital Course Course Attending Physician: Heriberto De Paz MD Primary Care Physician: Maryann JUARES,Harman Baxter Hospital Course: 62-year-old gentleman with a past medical history significant for hypertension, hyperlipidemia, diabetes, presented with 3 day history of swelling, pain, erythema of the left great toe and dorsum of the foot. Denied any recent trauma. Vital signs at presentation was stable. MRI of the left foot obtained revealed soft tissue swelling and edema of the great toe, with signal changes in the medial hallux sesamoid suggesting osteomyelitis, and distal phalangeal abscess. Arterial Doppler was also obtained which revealed tibial and pedal vessel disease. Patient was seen by podiatry and on 01/06/2018 was taken to the OR for the following procedures: * Excisional debridement * Abscess drainage of the left foot plantar space * Left great toe biopsy. After the OR procedure, patient was started on Unasyn and then transitioned to oxacillin after his OR culture was identified us pansensitive staph simulans. A PICC line was placed in anticipation of outpatient IV medication use for his osteomyelitis. Patient remained afebrile with no leukocytosis during the entire hospital stay. Patient was discharged to [facility] on 01/13. Issues to follow up on: Patient will require 4 weeks treatment course for his left foot osteomyelitis, he will be on Unasyn 2 g every 4 hours until the end of February 08/2018. Weekly CBC, ESR and CMP while on Oxacillin Patient will need to follow-up with vascular (Dr. De La Cruz) for his PVD (see his Doppler study that is enclosed). Pt will need follow up with endocrinology (Dr Jones [phone]) for his glycemic control Allergies: Coded Allergies: REBECCA Inhibitors (Severe, RASH 06/12/16) Significant Procedures: Operative/Inv Procedure Report Surgery Date: 01/11/18 Name of Procedure: 1 open incision and drainage deep to the deep fascia with exposure of the extensor and flexor tendon and tendon sheath multiple sites left foot 2 delayed primary closure of open surgical wound left foot 3 intraoperative administration of medical block anesthesia 4 excisional debridement Pre-Operative Diagnosis: 1 open, necrotic wound left 2 osteomyelitis left foot 3 diabetic peripheral neuropathy Post-Operative Diagnosis: The same Pertinent Lab Results: EXAM TYPE: US - US-DUPLEX SCAN LOWER EXT ARTER EXAMINATION: US DUPLEX LOWER EXTREMITY ARTERY/GRAFT LIMITED, LEFT LEG CLINICAL INFORMATION: 62-year-old diabetic patient presenting with erythema, swelling, and pain of the left leg. Diminished pedal pulses. COMPARISON: None TECHNIQUE: Real-time ultrasound and Doppler techniques (integrating B-mode 2-D vascular images, Doppler spectral analysis and color flow Doppler imaging) were utilized to interrogate the lower extremities. FINDINGS: Left lower extremity: Common femoral artery: 94 cm/sec; triphasic waveform Superficial femoral artery proximal: 126 cm/sec; triphasic waveform Superficial femoral artery mid portion: 122 cm/sec; triphasic waveform Superficial femoral artery distal: 95 cm/sec; triphasic waveform Profunda artery: 53 cm/sec; monophasic waveform Popliteal artery: 109 cm/sec; triphasic waveform Posterior tibial artery: 100 cm/sec; monophasic waveform Anterior tibial artery: 43 cm/sec; monophasic waveform Dorsalis pedis artery: 37 cm/sec; monophasic waveform ADDITIONAL FINDINGS: Scattered calcified plaque was seen throughout the mid superficial femoral artery without evidence of a focal flow acceleration or turbulence.. IMPRESSION: The duplex Doppler ultrasound of the left leg is consistent with tibial and pedal vessel disease of the left leg based on the diminished velocities and monophasic waveforms. No focal stenotic lesion was identified in the femoral or popliteal arteries. Greater sensitivity and specificity can be obtained with pre-and post exercise PVRs with RICARDA calculations. Also consider dedicated CTA for further anatomical detail. DICTATED BY: Deangelo Shirley MD Disposition Summary Disposition Principal Diagnosis: Osteomyelitis of left foot Additional Diagnosis: Left foot plantar abscess Discharge Disposition: SNF Discharge Instructions General Discharge Information Code Status: Full Code Patient's Diet: Carb diet Patient's Activity: As Tolerated Follow-Up Instructions/Appts: See in hospital course Medications at Discharge Discharge Medications: Continue taking these medications: Oxycodone HCl/Acetaminophen (Oxycodone-Acetaminophen 10-325) 10 MG-325 MG TABLET 1 Tablet ORAL EVERY 6 HOURS NEEDED as needed for PAIN SCALE 4-6 (MODERATE ) Qty = 120 Comments: Last Taken: 05/18/16 Time: 0745AM Amlodipine Besylate (Amlodipine Besylate) 10 MG TABLET 10 Milligram ORAL DAILY Qty = 90 Comments: NOT GIVEN IN HOSPITAL Metformin HCl (Metformin HCl) 1,000 MG TABLET 1,000 Milligram ORAL TWICE DAILY Qty = 180 Comments: NOT GIVEN Aspirin (Ecotrin*) 81 MG TABLET. 81 Milligram ORAL DAILY Comments: Last Taken: 05/18/16 Time: 0900AM Insulin Glargine,Hum.rec.anlog (Basaglar Kwikpen U-100) 100 UNIT/ML (3 ML) INSULN.PEN 50 Units SC TWICE DAILY Comments: PER PT Epinephrine (Epipen 2-Torito) 0.3 MG/0.3 ML AUTO.INJCT 1 Flexpen SUB-Q ONE TIME DOSE Qty = 2 Pravastatin Sodium (Pravastatin Sodium) 40 MG TABLET 40 Milligram ORAL DAILY Qty = 90 This prescription has been renewed Start taking the following new medications: Oxacillin Sodium/Dextrose,Iso (Oxacillin 2 Gm/ 50 Ml Inj) 2 GRAM/50 ML FROZ.PIGGY 2 Gram IV Q4H Days = 30 No Refills Instructions: END DATE 02/08 Copies To: Maryann JUARES,Harman Baxter
[2018-01-13 23:45] VITALS: BP 130/80
[2018-01-14 05:53] VITALS: BP 154/96
--- NOTE | 2018-01-14 07:28 | PN- Housestaff ---
Heriberto De Paz 01/14/18 1330: Attending MD Review Statement Attending Statement Attending MD Statement: examined this patient, discuss w/resident/PA/BANDAGE MAKER, agreed w/resident/PA/BANDAGE MAKER, discussed with family, reviewed EMR data (avail), discussed with nursing, discussed with case mgmt, reviewed images, amended to note Attending Assessment/Plan: NO new complaints. Awaiting insurance approval. Medically stable for discharge.
[2018-01-14 15:04] VITALS: BP 150/90
--- NOTE | 2018-01-14 16:28 | PN- Housestaff ---
See Addendum Subjective Follow-up For: Left lower extremity osteomyelitis, Subjective: Patient seen and examined at bedside. He is waiting for home health care services issues. He denies fever, chills, chest pain, palpitation, diarrhea, constipation, burning micturition. Review of Systems Constitutional: Reports: see HPI. Objective Last 24 Hrs of Vital Signs/I&O Vital Signs Date Time Temp Pulse Resp B/P B/P Pulse O2 O2 Flow FiO2 Mean Ox Delivery Rate 01/14 1504 97.9 82 22 150/90 98 01/14 0900 87 142/90 01/14 08 95 Room Air 01/14 0553 97.8 80 20 154/96 95 01/13 2345 98.1 78 20 130/80 93 Room Air Intake & Output 01/14 1600 01/14 0800 01/14 0000 Intake Total 980 540 240 Output Total Balance 980 540 240 Intake, IV 300 Intake, Oral 980 240 240 Physical Exam General Appearance: Alert, Oriented X3, Cooperative, No Acute Distress Assessment/Plan Assessment: 60-year-old male with past medical history diabetes, hyperlipidemia, hypertension, presented to emergency department with a complaint of left great toe swelling redness, warmth its started after binge drink of alcohol last week and eaten lobster last week. On examination there was some white pus in big toe planar area and a small cut, dimisnis pulses, no pallor, no black discolouration. His lab was not significant except for uncontrolled blood sugar. Problems list; -Osteomyelitis -Peripheral vascular disease -Subacute fracture of left foot second digit -Peripheral neuropathy secondary to diabetes mellitus Plan: =Osteomyelitis: Patient history clinical findings are more consistent with osteomyelitis. Podiatric procedure done. Debridement and abscess drainage done. Podiatry suspecting osteomyelitis bone sample has taken and sent for biopsy, report showed gram-positive cocci growth. His PICC line placed today. See consideration of I&D done today, wound is closed now. We will discharge him tomorrow for IV 2 g oxacillin every 6 hour for 4 weeks. He is going to short- term rehab. = Peripheral vascular disease: There were diminished pulse in the left foot compared to right foot. We were suspecting peripheral vascular disease.The duplex Doppler ultrasound of the left leg is consistent with tibial and pedal vessel disease of the left leg based on the diminished velocities and monophasic waveforms. No focal stenotic lesion was identified in the femoral or popliteal arteries. Vascular surgery consultation placed. They will follow-up on patient. Greater sensitivity and specificity can be obtained with pre-and post exercise PVRs with RICARDA calculations. Also consider dedicated CTA for further anatomical detail. Vascular surgeon advised to continue antibiotic , leg elevation and consult with podiatry. stable from vascular = DVT: Venous Doppler done to rule out deep venous thrombosis. There is no DVT. = Gout: = Plan to discharge to short-term rehab =MRI showed no effusion left great toe joint, gout is less likely. -He is allergic to on REBECCA inhibitors. Had a severe reaction, angioedema. -Anticipated discharge today. Problem List: 1. Osteomyelitis 2. Loose, teeth 3. Peripheral vascular disease Pain Ratin Pain Location: No pain Pain Goal: Remain pain free Pain Plan: No pain Tomorrow's Labs & Rationales: N/A
[2018-01-14 16:45] VITALS: BP 150/90
== END 2018-01-14 18:12 | DRG 623 ==
LOC: ERH 01:22 → ERHI 02:57 → 2NA 02:57 → ENRESERV 03:25 → 2NA 04:35 → ENTRNSPT 01-06 15:01 → EDTRNSPTSTS 01-06 15:17 → EDTRNSPT 01-06 15:17 → CMPTRNSPT 01-06 15:34 → ENTRNSPT 01-11 15:59 → EDTRNSPTSTS 01-11 16:08 → EDTRNSPT 01-11 16:08 → CMPTRNSPT 01-11 16:55 → 2NA 01-14 18:12
PROVIDERS: Emergency Medicine; Hospitalist; Student in an Organized Health Care Education/Training Program
PROC: 0JBR0ZZ Excision of Left Foot Subcutaneous Tissue and Fascia, Open Approach (ICD-10-PCS; principal; 2018-01-06)
PROC: 0QBR0ZZ Excision of Left Toe Phalanx, Open Approach (ICD-10-PCS; 2018-01-06)
PROC: 0H9NXZZ Drainage of Left Foot Skin, External Approach (ICD-10-PCS; 2018-01-06)
PROC: 0J9R0ZZ Drainage of Left Foot Subcutaneous Tissue and Fascia, Open Approach (ICD-10-PCS; 2018-01-11)
PROC: 0JQR0ZZ Repair Left Foot Subcutaneous Tissue and Fascia, Open Approach (ICD-10-PCS; 2018-01-11)
DX: E11.69 Type 2 diabetes mellitus with other specified complication (principal); M84.478A Pathological fracture, left toe(s), initial encounter for fracture; L02.612 Cutaneous abscess of left foot; M86.8X7 Other osteomyelitis, ankle and foot; E11.621 Type 2 diabetes mellitus with foot ulcer; L03.032 Cellulitis of left toe; E11.42 Type 2 diabetes mellitus with diabetic polyneuropathy; Z79.4 Long term (current) use of insulin; Z79.84 Long term (current) use of oral hypoglycemic drugs; F10.20 Alcohol dependence, uncomplicated; E66.9 Obesity, unspecified; Z68.38 Body mass index [BMI] 38.0-38.9, adult; E11.65 Type 2 diabetes mellitus with hyperglycemia; I73.9 Peripheral vascular disease, unspecified; M10.9 Gout, unspecified; B95.7 Other staphylococcus as the cause of diseases classified elsewhere
CPT/HCPCS: 2NAP; 75657; 87070; 87075; 87184; 36592; 71045; 71046; 73630-LT; 82436; 87040; 87147; 93005; 93010; 96361; 96374; C1769; G0480; J0131; J0696; J1815; J2001; J7042

== ENCOUNTER 2018-02-18 13:27 | Emergency (ER) | payer OTHER ==
[~2018-02-18] VITALS: Ht 182.9 cm; Wt 113.4 kg
[~2018-02-18 13:27] MED LIST changes: +OXACILLIN2 GM/50 M1 IV
[2018-02-18 14:58] LABS: ABSOLUTE BASOPHIL COUNT 0.1 /CUMM (0.0-0.2); ABSOLUTE EOSINOPHIL COUNT 0.2 /CUMM (0.0-0.7); ABSOLUTE GRANULOCYTE CT 5.2 /CUMM (1.4-6.5); ABSOLUTE LYMPH COUNT 1.6 /CUMM (1.2-3.4); ABSOLUTE MONOCYTE COUNT 0.8 /CUMM (0.10-0.60); BASOPHIL % 0.8 % (0.0-2.0); EOSINOPHIL % 3.1 % (0-5); GRANULOCYTE % 65.7 % (42.2-75.2); HEMATOCRIT 37.7 % (42-52); MEAN CORPUSCULAR HGB 26.3 PG (27.0-31.0); MEAN CORPUSCULAR HGB CONC 33.4 G/DL (33.0-37.0); MEAN CORPUSCULAR VOLUME 78.6 FL (80.0-94.0); MEAN PLATELET VOLUME 9.6 FL (7.4-10.4); PLATELET COUNT 224 /CUMM (130-400); RBC DISTRIBUTION WIDTH 15.4 % (11.5-14.5); WHITE BLOOD CELL COUNT 7.9 /CUMM (4.8-10.8)
[2018-02-18 15:11] LABS: PT 12.8 SEC (9.4-12.5); PTT 33 SEC (25-37)
--- NOTE | 2018-02-18 15:30 | RADIOLOGY REPORT ---
EXAMINATION: XR FOOT, LEFT CLINICAL INFORMATION: Left great toe chronic lesion. Concern for osteomyelitis. COMPARISON: Left foot 01/04/2018 TECHNIQUE: AP, lateral, and oblique views of the left foot. FINDINGS: There is no bone destruction or abnormal periosteal reaction. There is no radiographic evidence for osteomyelitis. At the medial side of the proximal phalanx of the great toe at the first MTP joint there is a small periarticular chip fracture. This is new since prior exam 01/04/2018. On the exam of 01/04/2018 is a fracture of the distal aspect of the proximal phalanx of the second toe. This fracture has healed with residual deformity. There is a small plantar calcaneal spur. There is a spur at the dorsum of the talus at the neck of the talus. There are small vessel calcifications in the soft tissues of the foot. IMPRESSION: 1. No evidence for osteomyelitis. 2. Small chip fracture of the proximal phalanx of the great toe at the MTP joint at the medial side of the bone. 3. Healed fracture of the proximal phalanx of the second toe. 4. Small plantar calcaneal spur.
--- NOTE | 2018-02-18 19:37 | ED ANKLE/FOOT INJURY COMPLAINT ---
History of Present Illness General Chief Complaint: Foot or Ankle Injury Stated Complaint: PT WAS SENT DOWN BY DR BRYANT HIS TOE Source: patient, family, old records Exam Limitations: no limitations Vital Signs & Intake/Output Vital Signs & Intake/Output Vital Signs Date Time Temp Pulse Resp B/P B/P Pulse O2 O2 Flow FiO2 Mean Ox Delivery Rate 02/18 1408 97.9 103 16 115/77 96 Room Air Allergies Coded Allergies: REBECCA Inhibitors (Severe, RASH 06/12/16) Reconcile Medications Amlodipine Besylate 10 MG TABLET 10 MG PO DAILY HIGH BLOOD PRESSURE (Reported ) Aspirin (Ecotrin*) 81 MG TABLET.DR 81 MG PO DAILY HEART HEALTH (Reported) Epinephrine (Epipen 2-Torito) 0.3 MG/0.3 ML AUTO.INJCT 0.3 MG SC AD PRN ALLERGIC REACTION (Reported) Epinephrine (Epipen 2-Torito) 0.3 MG/0.3 ML AUTO.INJCT 1 PEN SQ ONE ALLERGIC REACTION Insulin Glargine,Hum.rec.anlog (Basaglar Kwikpen U-100) 100 UNIT/ML (3 ML) INSULN.PEN 50 UNITS SC BID DM (Reported) Metformin HCl 1,000 MG TABLET 1,000 MG PO BID DIABETES (Reported) Oxacillin Sodium/Dextrose,Iso (Oxacillin 2 Gm/ 50 Ml Inj) 2 GRAM/50 ML FROZ.PIGGY 2 GM IV Q4H OSTEOMYELITIS END DATE 02/08 Oxycodone HCl/Acetaminophen (Oxycodone-Acetaminophen 10-325) 10 MG-325 MG TABLET 1 TAB PO Q6-PRN PRN PAIN SCALE 4-6 (MODERATE) (Reported) Pravastatin Sodium 40 MG TABLET 40 MG PO DAILY HIGH CHOLESTROL Triage Note: 62 Y/O MALE SENT BY DR BRYANT FOR POSSIBLE ADMISSION. PT STATES "HE WANTS TO TAKE THE TOE OFF" (L GREAT TOE). PT REPORTS WOUND X MANY MONTHS. STATES HE FEELS "WELL". WOUND NOT VISUALIZED IN TRIAGE DUE TO CLOTHING. FAMILY MEMBER STATES DR BRYANT "WANTS BLOODWORK, AND MRI". EVAL'D BY MIRIAN ACUNA IN TRIAGE TAKEN FOR EKG/BLOODWORK Triage Nurses Notes Reviewed? yes Occurred: just prior to arrival Duration: constant, continues in ED Timing: recent history Severity: moderate Pain/Injury Location: Left: 1st toe. Method of Injury: unknown No Modifying Factors: none Associated Symptoms: swelling, redness, GCS 15 since, stiffness HPI: Prior to admission the patient was referred to the emergency department for evaluation of recurrent left great toe swelling and redness. He is status post 6 weeks IV antibiotics and rehabilitation for left great toe infection. He denies fever chills nausea vomiting diarrhea abdominal pain chest pain shortness breath headache dysuria bleeding. Past History Travel History Traveled to [place] past 21 day No Medical History Any Pertinent Medical History? 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 No Review of Systems Review of Systems Constitutional: Reports: no symptoms. EENTM: Reports: no symptoms. Respiratory: Reports: no symptoms. Cardiovascular: Reports: no symptoms. GI: Reports: no symptoms. Genitourinary: Reports: no symptoms. Musculoskeletal: Reports: no symptoms. Skin: Reports: see HPI, rash. Neurological/Psychological: Reports: no symptoms. Hematologic/Endocrine: Reports: no symptoms. Immunologic/Allergic: Reports: no symptoms. All Other Systems: Reviewed and Negative Physical Exam Physical Exam General Appearance: well developed/nourished, alert, awake, anxious, comfortable Head: atraumatic, normal appearance Eyes: Bilateral: normal appearance, PERRL, EOMI. Ears, Nose, Throat: normal pharynx, normal ENT inspection, hearing grossly normal Neck: normal inspection, supple, full range of motion, no midline tenderness Cardiovascular/Respiratory: normal breath sounds, normal peripheral pulses, regular rate/rhythm Back: normal inspection, normal range of motion Leg/Knee/Thigh Left: normal range of motion, normal inspection Leg/Knee/Thigh Right: normal range of motion, normal inspection Ankle Left: normal inspection, normal range of motion Ankle Right: normal inspection, normal range of motion Foot Left: bone tenderness, erythema (over first metatarsal), limited range of motion, soft tissue tenderness, swelling Foot Right: normal inspection, normal range of motion Reflexes: 2+: knee (R), knee (L). Neuro/Vascular: normal motor function, abnormal cap refill Tendon: normal tendon function Psychiatric: awake, alert, oriented x 3 Skin: intact, warm/dry, rash Progress Differential Diagnosis: arterial insufficiency, cellulitis Plan of Care: Orders Procedure Date/time Status TROPONIN LEVEL 02/19 1408 Complete PARTIAL THROMBOPLASTIN TIME 02/19 1408 Complete PROTHROMBIN TIME 02/19 1408 Complete WESTERGREN SED RATE 02/19 1408 Complete C-REACTIVE PROTEIN 02/19 1408 Complete COMPREHENSIVE METABOLIC PANEL 02/19 1408 Complete CBC WITHOUT DIFFERENTIAL 02/19 1408 Complete EKG 02/19 1408 Active TYPE & SCREEN (NOT X-MATCH) 02/19 1408 Complete Laboratory Tests 02/18/18 1436: Anion Gap 13, Estimated GFR > 60, BUN/Creatinine Ratio 15.0, Glucose 154 H, Calcium 9.4, Total Bilirubin 1.2, AST 18, ALT 25, Alkaline Phosphatase 77, Troponin I < 0.01, C-Reactive Prot, Quant 2.1 H, Total Protein 7.1, Albumin 4.0 , Globulin 3.1, Albumin/Globulin Ratio 1.3, PT 12.8 H, INR 1.17, APTT 33, CBC w Diff NO MAN DIFF REQ, RBC 4.80, MCV 78.6 L, MCH 26.3 L, MCHC 33.4, RDW 15.4 H , MPV 9.6, Gran % 65.7, Lymphocytes % 19.8 L, Monocytes % 10.6 H, Eosinophils % 3.1, Basophils % 0.8, Absolute Granulocytes 5.2, Absolute Lymphocytes 1.6, Absolute Monocytes 0.8 H, Absolute Eosinophils 0.2, Absolute Basophils 0.1, ESR Westergren 34 H Diagnostic Imaging: Viewed by Me: Radiology Read. Discussed w/RAD: Radiology Read. Radiology Impression: 1. No evidence for osteomyelitis. 2. Small chip fracture of the proximal phalanx of the great toe at the MTP joint at the medial side of the bone. 3. Healed fracture of the proximal phalanx of the second toe. 4. Small plantar calcaneal spur. Comments: Discussed with Dr. Bryant D/c home with outpatient MRI. No antibiotics. Departure Departure Time of Disposition: 1951 Disposition: HOME OR SELF CARE Condition: Stable Clinical Impression Primary Impression: Diabetic infection of left foot Referrals: Aimee HOSKINS,Vivek Wolf MD,Harman Baxter (PCP/Family) Departure Forms: Customer Survey General Discharge Information
[2018-02-18 20:10] VITALS: BP 114/67
== END 2018-02-18 20:09 ==
LOC: ERH 13:27
PROVIDERS: Physician Assistant Medical
DX: E11.628 Type 2 diabetes mellitus with other skin complications (principal); L08.9 Local infection of the skin and subcutaneous tissue, unspecified; I10 Essential (primary) hypertension; E78.5 Hyperlipidemia, unspecified; F10.20 Alcohol dependence, uncomplicated; Z87.891 Personal history of nicotine dependence
CPT/HCPCS: 36415; 73630-LT; 93005; 93010